=== PATIENT | male | born 1995 | race Caucasian/White ===

== ENCOUNTER 2019-01-21 08:58 | Emergency (ER) | payer SELFPAY ==
[2019-01-21] MEDS ORDERED: IBUPROFEN 400 MG TAB ONE (09:27)
--- NOTE | 2019-01-21 09:50 | EDPHYS ---
Physician Documentation [facility] Name: Richi Edward Age: 23 yrs Sex: Male : 1995 Arrival Date: 01/21/2019 Time: 09:03 Bed 13 Private MD: None, None ED Physician Dick Perez HPI: 01/21 09:11 This 23 yrs old Male presents to ER via Ambulatory with complaints of Fever, cp Cough, Sore Throat. 09:11 The patient reports fever, that was measured at 103 degrees Fahrenheit. Onset: The cp symptoms/episode began/occurred 3 day(s) ago. Associated signs and symptoms: Pertinent positives: cough, sore throat, body aches, Pertinent negatives: abdominal pain, chest pain, diarrhea, headache, sinus congestion, vomiting. Historical: - Allergies: 09:11 No Known Allergies; sg - Home Meds: 09:11 None [Active]; sg - PMHx: 09:11 None; sg - PSHx: 09:11 None; sg - Immunization history:: Adult Immunizations up to date. - Social history:: Smoking status: Patient/guardian denies using tobacco. - Ebola Screening: : Patient negative for fever greater than or equal to 101.5 degrees Fahrenheit, and additional compatible Ebola Virus Disease symptoms Patient denies exposure to infectious person Patient denies travel to an Ebola-affected area in the 21 days before illness onset No symptoms or risks identified at this time. ROS: 09:15 Constitutional: Positive for body aches, fever, Negative for poor PO intake. cp 09:15 Eyes: Negative for injury, pain, redness, and discharge. cp 09:15 ENT: Positive for sore throat, Negative for drainage from ear(s), ear pain, sinus congestion, sinus pain, difficulty swallowing, difficulty handling secretions. 09:15 Neck: Negative for pain with movement, pain at rest, stiffness. 09:15 Cardiovascular: Negative for chest pain. 09:15 Respiratory: Positive for cough, Negative for shortness of breath, wheezing. 09:15 Abdomen/GI: Negative for abdominal pain, nausea, vomiting, and diarrhea. 09:15 Skin: Negative for rash. 09:15 Neuro: Negative for altered mental status, headache. 09:15 All other systems are negative. Exam: 09:20 Constitutional: The patient appears in no acute distress, alert, awake, non-toxic, well cp developed, well nourished. 09:20 Head/Face: Normocephalic, atraumatic. cp 09:20 Eyes: Periorbital structures: appear normal, Conjunctiva: normal, no exudate, no injection, Lids and lashes: appear normal, bilaterally. 09:20 ENT: External ear(s): are unremarkable, Ear canal(s): are normal, clear, TM's: bulging, is not appreciated, bilaterally, dullness, bilaterally, erythema, is not appreciated, bilaterally, Nose: is normal, Mouth: Lips: moist, Oral mucosa: moist, Posterior pharynx: Airway: no evidence of obstruction, patent, Tonsils: with erythema, no enlargement, no exudate, Uvula: midline, erythema, that is mild, exudate, is not appreciated. 09:20 Neck: ROM/movement: is normal, is supple, without pain, no range of motions limitations, no meningismus, no nuchal rigidity, Lymph nodes: no appreciated lymphadenopathy. 09:20 Chest/axilla: Inspection: normal, Palpation: is normal, no crepitus, no tenderness. 09:20 Cardiovascular: Rate: tachycardic, Rhythm: regular. 09:20 Respiratory: the patient does not display signs of respiratory distress, Respirations: normal, no use of accessory muscles, no retractions, no splinting, no tachypnea, labored breathing, is not present, Breath sounds: are clear throughout, no decreased breath sounds, no stridor, no wheezing. 09:20 Abdomen/GI: Exam negative for discomfort, distension, guarding, Inspection: abdomen appears normal. 09:20 Skin: no rash present. Vital Signs: 09:10 BP 118 / 74; Pulse 101; Resp 17; Temp 100.2; Pulse Ox 98% on R/A; Weight 61.23 kg; sg Height 5 ft. 10 in. (177.80 cm); Pain 10/10; 09:54 BP 111 / 73; Pulse 86; Resp 14; Pulse Ox 96% ; bp 09:10 Body Mass Index 19.37 (61.23 kg, 177.80 cm) sg MDM: 09:05 Patient medically screened. cp 09:20 Differential diagnosis: viral Infection, bacterial infection, URI, bronchitis, cp pneumonia meningitis. 09:48 Data reviewed: vital signs, nurses notes, lab test result(s), and as a result, I will cp discharge patient. 09:48 Counseling: I had a detailed discussion with the patient and/or guardian regarding: the cp historical points, exam findings, and any diagnostic results supporting the discharge/admit diagnosis, lab results, to return to the emergency department if symptoms worsen or persist or if there are any questions or concerns that arise at home. Response to treatment: the patient's symptoms have mildly improved after treatment, and as a result, I will discharge patient. Special discussion: I discussed with the patient/guardian that the patient's current presentation does not indicate dosing of antibiotics. They should follow-up with their primary care provider and return if the symptoms persist or progress. 01/21 09:10 Order name: Influenza Screen (a \T\ B) 01/21 09:10 Order name: Strep; Complete Time: 09:47 01/21 09:47 Interpretation: Reviewed. 01/21 09:10 Order name: Influenza Screen (A ; Complete Time: 09:47 EDMS 01/21 09:47 Interpretation: Reviewed. 01/21 09:37 Order name: Throat Culture EDMI Administered Medications: 09:25 Drug: Ibuprofen 800 mg Route: PO; sg Disposition: 18:25 Co-signature as Attending Physician, Dick Perez MD. Disposition: 01/21/19 09:49 Discharged to Home. Impression: Acute pharyngitis. - Condition is Stable. - Discharge Instructions: Pharyngitis. - Prescriptions for Ibuprofen 800 mg Oral Tablet - take 1 tablet by ORAL route every 8 hours As needed take with food; 30 tablet. Tessalon Perles 100 mg Oral Capsule - take 1 capsule by ORAL route every 8 hours As needed; 15 capsule. - Medication Reconciliation Form, Thank You Letter, Antibiotic Education, Prescription Opioid Use, Work release form form. - Follow up: Private Physician; When: 2 - 3 days; Reason: Worsening of condition. - Problem is new. - Symptoms have improved. Signatures: Dispatcher [employer] EDMS Hans Jean-Baptiste RN RN Brian Crowder PA PA cp Starr, Gregory, MD MD gs Corrections: (The following items were deleted from the chart) 09:57 09:49 01/21/2019 09:49 Discharged to Home. Impression: Acute pharyngitis. Condition is sg Stable. Forms are Medication Reconciliation Form, Thank You Letter, Antibiotic Education, Prescription Opioid Use. Follow up: Private Physician; When: 2 - 3 days; Reason: Worsening of condition. Problem is new. Symptoms have improved. cp
--- NOTE | 2019-01-21 09:50 | ER ---
Nurse's Notes [facility] Name: Richi Edward Age: 23 yrs Sex: Male : 1995 Arrival Date: 01/21/2019 Time: 09:03 Bed 13 Private MD: None, None Diagnosis: Acute pharyngitis Presentation: 01/21 09:07 Presenting complaint: Patient states: Fever sore throat and body aches that started two sg days ago, reports TMAX of 103.2 at home, no medications taken, denies N/V/D at this time. Transition of care: patient was not received from another setting of care. Onset of symptoms was January 19, 2019. Risk Assessment: Do you want to hurt yourself or someone else? Patient reports no desire to harm self or others. Initial Sepsis Screen: Does the patient meet any 2 criteria? HR > 90 bpm. Does the patient have a suspected source of infection? No. Patient's initial sepsis screen is negative. Care prior to arrival: None. 09:07 Method Of Arrival: Ambulatory sg 09:07 Acuity: RADU 3 sg Historical: - Allergies: 09:11 No Known Allergies; sg - Home Meds: 09:11 None [Active]; sg - PMHx: 09:11 None; sg - PSHx: 09:11 None; sg - Immunization history:: Adult Immunizations up to date. - Social history:: Smoking status: Patient/guardian denies using tobacco. - Ebola Screening: : Patient negative for fever greater than or equal to 101.5 degrees Fahrenheit, and additional compatible Ebola Virus Disease symptoms Patient denies exposure to infectious person Patient denies travel to an Ebola-affected area in the 21 days before illness onset No symptoms or risks identified at this time. Screenin:15 Abuse screen: Denies threats or abuse. Denies injuries from another. Nutritional sg screening: No deficits noted. Tuberculosis screening: No symptoms or risk factors identified. Never had TB. Fall Risk None identified. Assessment: 09:15 General: Appears in no apparent distress. uncomfortable, ill, well groomed, well sg developed, well nourished, Behavior is calm, cooperative, appropriate for age. Pain: Complains of pain in body aches and sore throat Quality of pain is described as aching. Neuro: Level of Consciousness is awake, alert, obeys commands, Oriented to person, place, time, [employer] are equal bilaterally Moves all extremities. Full function Speech is normal, Facial symmetry appears normal. Cardiovascular: Patient's skin is warm and dry. Chest pain is denied. Respiratory: Airway is patent Respiratory effort is even, unlabored, Respiratory pattern is regular, symmetrical, Breath sounds are clear. Respiratory: Reports cough that is non-productive. GI: No signs and/or symptoms were reported involving the gastrointestinal system. : No signs and/or symptoms were reported regarding the genitourinary system. EENT: Oral mucosa is moist. Throat is pink has enlarged tonsils bilaterally. Derm: Skin is pale. Musculoskeletal: No signs and/or symptoms reported regarding the musculoskeletal system. Vital Signs: 09:10 BP 118 / 74; Pulse 101; Resp 17; Temp 100.2; Pulse Ox 98% on R/A; Weight 61.23 kg; sg Height 5 ft. 10 in. (177.80 cm); Pain 10/10; 09:54 BP 111 / 73; Pulse 86; Resp 14; Pulse Ox 96% ; bp 09:10 Body Mass Index 19.37 (61.23 kg, 177.80 cm) sg ED Course: 09:03 Patient arrived in ED. mr 09:03 None, None is Private Physician. mr 09:05 Dick Perez MD is Attending Physician. 09:05 Brian Landeros PA is PHCP. cp 09:05 Dick Perez MD is Attending Physician. cp 09:07 Hans Jean-Baptiste RN is Primary Nurse. sg 09:09 Triage completed. sg 09:10 Flu and/or RSV swab sent to lab. Strep swab sent to lab. sg 09:11 Arm band placed on. sg Administered Medications: 09:25 Drug: Ibuprofen 800 mg Route: PO; sg Outcome: 09:49 Discharge ordered by . cp 09:57 Patient left the ED. sg Signatures: Hans Jean-Baptiste, RN RN Enedelia Prieto mr Brian Landeros PA PA cp Dick Perez MD MD Jacoby Johnson RN RN bp
[2019-01-21 12:21] VITALS: TEMP 100.2
[2019-01-21 12:23] VITALS: BP 111/73; O2SAT 96
== END 2019-01-21 09:57 | disposition home or self-care (01) ==
LOC: ER 08:58
DX: J02.9 Acute pharyngitis, unspecified (principal)
CPT/HCPCS: 87070; 87081; 87804; 99283

== ENCOUNTER 2019-01-31 01:30 | Emergency (ER) | payer SELFPAY ==
--- OUTSIDE RECORDS SUMMARY | 2019-01-31 01:32 | XMS REPORT | Continuity of Care Document ---
:1995 Author Organization [facility] Address [address] [place] [address] Phone Unavailable Care Team Providers Name Role Phone PHYSICIAN, NO Primary Care Physician Unavailable Insurance Providers Guarantor Jonathan Wells Address [address] [place] [address] [employer] Payer Medicaid Policy Number [id number] Subscriber's Name Yash Edward Relationship Self / Same As Patient Group Number NA Group Name NA Advance Directives Directive Response Recorded Date/Time Name of Surrogate/Decision Maker NA 11/08/18 4:38pm Patient/Family Given Education Material R/T Y - 11-08-18...MP 11/08/18 4: 38pm Directives? Chief Complaint and Reason for Visit Chief Complaint HEENTL Reason for Visit [id number] Problems Active ProblemsNo active problem information available. Past Problems Medical Problem Onset Date Status Exposure to Streptococcal pharyngitis Unknown Acute Medications No medication information available. Social History Smoking Status Start Date Stop Date Current every day smoker Hospital Discharge Instructions No hospital discharge instruction information available. Plan of Care Discharge Date 11/08/18 5:28pm Instructions/Education Provided Pharyngitis Forms Provided Portal Welcome Letter Prescriptions See Medication Section Referrals NO PHYSICIAN Additional Instructions/Education TYLENOL/MOTRIN NEEDED. AMOXIL 500MG PO TWICE A DAY FOR 10 DAYS. WARM SALINE GARGLES. F/U AT [facility] IN 2 DAYS. RETURN IF GET WORSE. Functional Status No functional status information available. Allergies, Adverse Reactions, Alerts Allergen Type Severity Reaction Status Last Updated ALOE VERA Allergy Intermediate Active 11/08/18 Immunizations No immunization information available. Vital Signs Acute Vital Signs Vital Response Date/Time Blood Pressure 103/66 mm Hg 11/08/2018 5:30pm Pulse Pulse Rate (adult) 74 beats per minute (60 - 100) 11/08/2018 5:30pm Respiratory Rate 15 breaths per minute (10 - 24) 11/08/2018 5:30pm Temperature Source Oral 11/08/2018 5:30pm Height 5 ft 9 in 11/08/2018 4:36pm Weight 143 lb 11/08/2018 4:36pm Body Mass Index 21.1 kg/m^2 11/08/2018 4:36pm Results No relevant diagnostic test, laboratory data and/or discharge summary information available. Procedures No procedure information available. Encounters Encounter Location Arrival/Admit Date Discharge/Depart Date Attending Provider Departed [place] 11/08/18 4:32pm 11/08/18 5:28pm HAL[facility] BERRY Emergency [facility] Recent Diagnosis
[2019-01-31] MEDS ORDERED: NA CHLORIDE 0.9% 1,000 ML ONE (03:05)
[2019-01-31] MEDS ORDERED: MAGNE/ALUM HYDROXD 30 ML UCUP ONE (03:05)
[2019-01-31] MEDS ORDERED: LIDOCAINE VISCOUS 2% SOLN 15 ML UDC ONE (03:05)
[2019-01-31 03:13] LABS: Absolute Lymphocytes (CBC) 1.8 K/uL (0.7-4.9); Absolute Monocytes 0.6 K/uL (0.1-1.3); Absolute Neutrophil 4.6 K/uL (1.8-8.0); Basophils % 0.4 % (0-1.3); Eosinophils % 1.7 % (0-4.4); Hematocrit 39.6 % (39.6-49.0); Lymphocytes % 24.7 % (15.3-44.8); MPV 8.7 fL (7.6-11.3); Monocytes % 8.7 % (3.3-12.3); RBC Red Blood Cell Count 4.47 M/uL (4.33-5.43)
[2019-01-31 03:29] LABS: ALT/SGPT 58 U/L (12-78); AST/SGOT 28 U/L (15-37); Albumin 3.9 g/dL (3.4-5.0); Alkaline Phosphatase 64 U/L (45-117); BUN Blood Urea Nitrogen 20 mg/dL (7-18); Bicarbonate 28 mmol/L (21-32); Bilirubin Direct 0.1 mg/dL (0-0.2); Bilirubin Total 0.3 mg/dL (0.2-1.0); Glucose Level 102 mg/dL (74-106); Lipase 110 U/L (73-393); Potassium 3.8 mmol/L (3.5-5.1); Protein, Total 7.7 g/dL (6.4-8.2); Sodium Level 142 mmol/L (136-145)
--- NOTE | 2019-01-31 06:23 | ER ---
Nurse's Notes [facility] Name: Richi Edward Age: 23 yrs Sex: Male : 1995 Arrival Date: 01/31/2019 Time: 01:33 Bed 5 Private MD: Diagnosis: Epigastric pain. Peptic ulcer disease Presentation: 01/31 01:35 Presenting complaint: Patient states: that 1 week ago he started to have mid abd pain. fc Then 3 days ago started to have diarrhea. Then last night at 2300 started to vomit blood with clots. Pt does state that family member had flu last week. Transition of care: patient was not received from another setting of care. Onset of symptoms was January 24, 2019. Risk Assessment: Do you want to hurt yourself or someone else? Patient reports no desire to harm self or others. Initial Sepsis Screen: Does the patient meet any 2 criteria? No. Patient's initial sepsis screen is negative. Does the patient have a suspected source of infection? No. Patient's initial sepsis screen is negative. Care prior to arrival: None. 01:35 Method Of Arrival: Ambulatory 01:35 Acuity: RADU 3 fc Historical: - Allergies: 01:54 No Known Allergies; fc - Home Meds: 01:54 None [Active]; fc - PMHx: 01:54 None; fc - PSHx: 01:54 None; fc - Immunization history:: Last tetanus immunization: unknown. - Social history:: Smoking status: Patient uses tobacco products, quit 2 weeks ago, Patient uses alcohol, occasionally. - Ebola Screening: : Patient negative for fever greater than or equal to 101.5 degrees Fahrenheit, and additional compatible Ebola Virus Disease symptoms Patient denies exposure to infectious person Patient denies travel to an Ebola-affected area in the 21 days before illness onset. Screenin:35 Abuse screen: Denies threats or abuse. Nutritional screening: No deficits noted. fc Tuberculosis screening: No symptoms or risk factors identified. Fall Risk None identified. Assessment: 02:00 General: Appears in no apparent distress. uncomfortable, Behavior is calm, cooperative, rr5 appropriate for age. 02:00 Pain: Complains of pain in abdomen Pain does not radiate. Pain currently is 10 out of rr5 10 on a pain scale. Quality of pain is described as aching, Pain began gradually, Is intermittent. Neuro: Level of Consciousness is awake, alert, obeys commands, Oriented to person, place, time, situation, Appropriate for age. Cardiovascular: Capillary refill < 3 seconds Patient's skin is warm and dry. Respiratory: Airway is patent Respiratory effort is even, unlabored, Respiratory pattern is regular, symmetrical. GI: Abdomen is flat, Reports upper abdominal pain, diarrhea, vomiting, vomit blood clot. : No signs and/or symptoms were reported regarding the genitourinary system. EENT: No signs and/or symptoms were reported regarding the EENT system. Derm: Skin is intact, Skin temperature is warm. Musculoskeletal: Circulation, motion, and sensation intact. Capillary refill < 3 seconds, Range of motion: intact in all extremities. 02:40 Reassessment: Patient appears in no apparent distress at this time. patient refused for rr5 NGT insertion. ED provider aware. 03:30 Reassessment: Patient appears in no apparent distress at this time. Patient is alert, rr5 oriented x 3, equal unlabored respirations, skin warm/dry/pink. awaiting for review. 04:19 Reassessment: Patient and/or family updated on plan of care and expected duration. Pain ea level reassessed. Patient is alert, oriented x 3, equal unlabored respirations, skin warm/dry/pink. 05:30 Reassessment: Patient appears in no apparent distress at this time. Patient is alert, rr5 oriented x 3, equal unlabored respirations, skin warm/dry/pink. asleep on bed comfortably. 06:30 Reassessment: Patient and/or family updated on plan of care and expected duration. Pain ea level reassessed. Patient is alert, oriented x 3, equal unlabored respirations, skin warm/dry/pink. Discharge instruction given to patient, verbalized the understanding instruction. Vital Signs: 01:35 BP 121 / 70; Pulse 78; Resp 18; Temp 97.6(O); Pulse Ox 98% on R/A; Weight 68.04 kg (R); fc Height 5 ft. 11 in. (180.34 cm) (R); Pain 10/10; 02:30 BP 118 / 75; Pulse 75; Resp 16; Pulse Ox 99% on R/A; rr5 03:30 BP 114 / 71; Pulse 80; Resp 18; Pulse Ox 99% on R/A; ea 04:19 BP 114 / 71; Pulse 73; Resp 18; Pulse Ox 97% on R/A; ea 05:58 BP 113 / 65; Pulse 60; Resp 18; Pulse Ox 97% on R/A; ea 06:15 BP 114 / 69; Pulse 60; Resp 18; Pulse Ox 97% on R/A; ea 01:35 Body Mass Index 20.92 (68.04 kg, 180.34 cm) ED Course: 01:33 Patient arrived in ED. am2 01:35 Arm band placed on Patient placed in an exam room, on a stretcher. fc 01:35 Patient has correct armband on for positive identification. Placed in gown. Bed in low fc position. Call light in reach. Pulse ox on. NIBP on. 01:35 No provider procedures requiring assistance completed. fc 01:52 Triage completed. fc 02:07 Cristopher Vargas MD is Attending Physician. pkl 02:43 Jeff Conroy RN is Primary Nurse. rr5 03:06 Inserted saline lock: 20 gauge in right antecubital area, using aseptic technique. ea Blood collected. 06:22 William Cornejo MD is Referral Physician. pkl 06:30 IV discontinued, intact, bleeding controlled, No redness/swelling at site. Pressure ea dressing applied. Administered Medications: 03:09 Drug: GI Cocktail without - (Maalox Suspension 30 ml, Lidocaine Liquid 2 % 15 ea ml) Route: PO; 04:10 Follow up: Response: No adverse reaction rr5 03:11 Drug: NS 0.9% 1000 ml Route: IV; Rate: 125 ml/hr; Site: right antecubital; ea 06:31 Follow up: Response: No adverse reaction; IV Status: Order to discontinue infusion; IV rr5 Intake: 300ml Point of Care Testing: Guaiac: 02:55 Stool Guaiac: Negative; Stool Hemoccult Control: Pass; rr5 Intake: 06:31 IV: 300ml; Total: 300ml. rr5 Outcome: 06:23 Discharge ordered by . pkl 06:31 Discharged to home ambulatory. ea 06:31 Condition: improved 06:31 Discharge instructions given to patient, Instructed on discharge instructions, follow up and referral plans. medication usage, Demonstrated understanding of instructions, follow-up care, medications, Prescriptions given X 1. 06:34 Patient left the ED. ea Signatures: Cristopher Vargas MD MD pkl Chretien, Felicia, RN RN Cheyanne Ma Elena RN RN Jeff Guillen RN RN rr5
--- NOTE | 2019-01-31 06:24 | EDPHYS ---
Physician Documentation [facility] Name: Richi Edward Age: 23 yrs Sex: Male : 1995 Arrival Date: 01/31/2019 Time: 01:33 Bed 5 Private MD: ED Physician Cristopher Vargas HPI: 01/31 02:31 This 23 yrs old Male presents to ER via Ambulatory with complaints of pkl vomiting blood. 02:45 The patient presents with abdominal pain in the epigastric area. Onset: The pkl symptoms/episode began/occurred 1 week(s) ago. Associated signs and symptoms: Pertinent positives: vomiting blood. Historical: - Allergies: :54 No Known Allergies; fc - Home Meds: :54 None [Active]; fc - PMHx: :54 None; fc - PSHx: :54 None; fc - Immunization history:: Last tetanus immunization: unknown. - Social history:: Smoking status: Patient uses tobacco products, quit 2 weeks ago, Patient uses alcohol, occasionally. - Ebola Screening: : Patient negative for fever greater than or equal to 101.5 degrees Fahrenheit, and additional compatible Ebola Virus Disease symptoms Patient denies exposure to infectious person Patient denies travel to an Ebola-affected area in the 21 days before illness onset. ROS: 02:45 Eyes: Negative for injury, pain, redness, and discharge, ENT: Negative for injury, pkl pain, and discharge, Neck: Negative for injury, pain, and swelling, Cardiovascular: Negative for chest pain, palpitations, and edema, Respiratory: Negative for shortness of breath, cough, wheezing, and pleuritic chest pain. 02:45 Abdomen/GI: Positive for abdominal pain, of the epigastric area. 02:45 Back: Negative for acute changes. 02:45 : Negative for urinary symptoms. 02:45 MS/extremity: Negative for acute changes. 02:45 Skin: Negative for rash. 02:45 Neuro: Negative for altered mental status. Exam: 02:45 Head/Face: Normocephalic, atraumatic. Eyes: Pupils equal round and reactive to light, pkl extra-ocular motions intact. Lids and lashes normal. Conjunctiva and sclera are non-icteric and not injected. Cornea within normal limits. Periorbital areas with no swelling, redness, or edema. ENT: Nares patent. No nasal discharge, no septal abnormalities noted. Tympanic membranes are normal and external auditory canals are clear. Oropharynx with no redness, swelling, or masses, exudates, or evidence of obstruction, uvula midline. Mucous membranes moist. Neck: Trachea midline, no thyromegaly or masses palpated, and no cervical lymphadenopathy. Supple, full range of motion without nuchal rigidity, or vertebral point tenderness. No Meningismus. Chest/axilla: Normal chest wall appearance and motion. Nontender with no deformity. No lesions are appreciated. Cardiovascular: Regular rate and rhythm with a normal S1 and S2. No gallops, murmurs, or rubs. Normal PMI, no JVD. No pulse deficits. Respiratory: Lungs have equal breath sounds bilaterally, clear to auscultation and percussion. No rales, rhonchi or wheezes noted. No increased work of breathing, no retractions or nasal flaring. 02:45 Abdomen/GI: Bowel sounds: normal, Palpation: soft, mild abdominal tenderness, in the epigastric area, Rectal exam: Stool: guaiac negative, the exam is chaperoned by the nurse. 02:45 Back: Exam negative for acute changes. 02:45 : Exam negative for acute changes. 02:45 Musculoskeletal/extremity: Exam is negative for acute changes. 02:45 Skin: Exam negative for rash. 02:45 Neuro: Orientation: is normal, Mentation: is normal, Cranial nerves: grossly normal, Motor: is normal. Vital Signs: 01:35 BP 121 / 70; Pulse 78; Resp 18; Temp 97.6(O); Pulse Ox 98% on R/A; Weight 68.04 kg (R); fc Height 5 ft. 11 in. (180.34 cm) (R); Pain 10/10; 02:30 BP 118 / 75; Pulse 75; Resp 16; Pulse Ox 99% on R/A; rr5 03:30 BP 114 / 71; Pulse 80; Resp 18; Pulse Ox 99% on R/A; ea 04:19 BP 114 / 71; Pulse 73; Resp 18; Pulse Ox 97% on R/A; ea 05:58 BP 113 / 65; Pulse 60; Resp 18; Pulse Ox 97% on R/A; ea 06:15 BP 114 / 69; Pulse 60; Resp 18; Pulse Ox 97% on R/A; ea 01:35 Body Mass Index 20.92 (68.04 kg, 180.34 cm) fc MDM: 02:07 Patient medically screened. pkl 06:21 Data reviewed: vital signs, nurses notes, lab test result(s). pkl 01/31 02:44 Order name: Basic Metabolic Panel pkl 01/31 02:44 Order name: CBC with Diff pkl 01/31 02:44 Order name: Creatinine for Radiology pkl 01/31 02:44 Order name: Hepatic Function; Complete Time: 06:20 pkl 01/31 02:44 Order name: Lipase; Complete Time: 06:20 pkl 01/31 02:45 Order name: Basic Metabolic Panel; Complete Time: 06:20 EDMS 01/31 02:44 Order name: IV Saline Lock; Complete Time: 03:11 pkl 01/31 02:44 Order name: Labs collected and sent; Complete Time: 03:11 pkl 01/31 02:45 Order name: CBC with Automated Diff; Complete Time: 06:20 EDMS 01/31 02:45 Order name: Creatinine (Radiology Only); Complete Time: 06:20 EDMS Administered Medications: 03:09 Drug: GI Cocktail without - (Maalox Suspension 30 ml, Lidocaine Liquid 2 % 15 ea ml) Route: PO; 04:10 Follow up: Response: No adverse reaction rr5 03:11 Drug: NS 0.9% 1000 ml Route: IV; Rate: 125 ml/hr; Site: right antecubital; ea 06:31 Follow up: Response: No adverse reaction; IV Status: Order to discontinue infusion; IV rr5 Intake: 300ml Point of Care Testing: Guaiac: 02:55 Stool Guaiac: Negative; Stool Hemoccult Control: Pass; rr5 Disposition: 01/31/19 06:23 Discharged to Home. Impression: Epigastric pain. Peptic ulcer disease. - Condition is Fair. - Prescriptions for Protonix 40 mg Oral Tablet, Delayed Release (E.C.) - take 1 tablet by ORAL route once daily; 15 tablet. - Medication Reconciliation Form, Thank You Letter, Antibiotic Education, Prescription Opioid Use, Work release form form. - Follow up: William Cornejo MD; When: 2 - 3 days; Reason: Re-evaluation by your physician. - Problem is new. - Symptoms have improved. Signatures: Dispatcher [employer] EDCristopher Stoner MD MD pkl Celeste Pinto RN RN Kimmy Rivera RN RN ea Roque, Raymond RN rr5 Corrections: (The following items were deleted from the chart) 03:44 02:45 NG Tube ordered. pkl rr5 06:34 06:23 01/31/2019 06:23 Discharged to Home. Impression: Epigastric pain. Peptic ulcer ea disease. Condition is Fair. Forms are Medication Reconciliation Form, Thank You Letter, Antibiotic Education, Prescription Opioid Use. Follow up: William Cornejo; When: 2 - 3 days; Reason: Re-evaluation by your physician. Problem is new. Symptoms have improved. pkl
[2019-01-31 06:45] VITALS: TEMP 97.6
[2019-01-31 06:49] VITALS: O2SAT 97
[2019-01-31 06:52] VITALS: BP 114/69
== END 2019-01-31 06:34 | disposition home or self-care (01) ==
LOC: ER 01:30
DX: K27.9 Peptic ulcer, site unspecified, unspecified as acute or chronic, without hemorrhage or perforation (principal); Z87.891 Personal history of nicotine dependence
CPT/HCPCS: 36415; 80048; 80076; 83690; 85025; 96360; 96361; 99284; J7030

== ENCOUNTER 2019-07-16 10:34 | Emergency (ER) | payer SELFPAY ==
[2019-07-16] MEDS ORDERED: MUPIROCIN 2% OINT 22GM TUBE TOP ONE (11:16)
--- NOTE | 2019-07-16 11:59 | RAD REPORT ---
EXAM DESCRIPTION: RAD - Hand Right 3 View - 07/16/2019 11:48 am CLINICAL HISTORY: Hand pain, trauma COMPARISON: None. FINDINGS: Oblique fracture is present through the distal shaft fifth metacarpal. Mild ventral angula tion deformity without distraction. There is no dislocation or periosteal reaction noted. No other f racture or acute bone finding identifiable. Soft tissue swelling is present near the fifth metacarpal . No foreign body. IMPRESSION: Distal fifth metacarpal shaft fracture with minimal ventral angulation.
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
[2019-07-16 18:04] VITALS: BP 139/77; TEMP 97.8; O2SAT 100
== END 2019-07-16 12:52 | disposition home or self-care (01) ==
LOC: ER 10:34
PROC: 2W3CX1Z Immobilization of Right Lower Arm using Splint (ICD-10-PCS; principal; 2019-07-16)
DX: S62.366A Nondisplaced fracture of neck of fifth metacarpal bone, right hand, initial encounter for closed fracture (principal); V89.2XXA Person injured in unspecified motor-vehicle accident, traffic, initial encounter; Z91.048 Other nonmedicinal substance allergy status; F17.210 Nicotine dependence, cigarettes, uncomplicated
CPT/HCPCS: 99284

== ENCOUNTER 2019-07-17 13:39 | Emergency (ER) | payer SELFPAY ==
--- NOTE | 2019-07-17 14:09 | ER ---
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 Transition of care: patient was not received from another setting of care. Onset of symptoms was July 17, 2019. Risk Assessment: Do you want to hurt yourself or someone else? Patient reports no desire to harm self or others. Initial Sepsis Screen: Does the patient meet any 2 criteria? No. Patient's initial sepsis screen is negative. Does the patient have a suspected source of infection? No. Patient's initial sepsis screen is negative. Care prior to arrival: None. 13:45 Method Of Arrival: Ambulatory la1 13:45 Acuity: RADU 5 la1 Historical: - Allergies: 13:47 aloe vera; la1 - PMHx: 13:47 Seizures; la1 - Immunization history:: Adult Immunizations up to date. - Social history:: Smoking status: Patient uses tobacco products, smokes one-half pack cigarettes per day. - Ebola Screening: : No symptoms or risks identified at this time. Screenin:21 Abuse screen: Denies threats or abuse. Nutritional screening: No deficits noted. la1 Tuberculosis screening: No symptoms or risk factors identified. Fall Risk None identified. Assessment: 14:21 General: Appears in no apparent distress. Behavior is calm, cooperative. Pain: la1 Complains of pain in right hand. Neuro: Level of Consciousness is awake, alert, obeys commands, Oriented to person, place, time, situation. Cardiovascular: Patient's skin is warm and dry. Musculoskeletal: Capillary refill < 3 seconds, is brisk, in bilateral fingers. 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 Pt advise he should not be lifting heavy objects with his arm and that we cannot provide that service as it could potentially cause him harm. Pt very upset states "I dont even know why the gilda yahayley are here if you cant help me, I could lose my job" pt educated that although this is an unfortunate situation it is not advisable that he attempt to lift heavy objects with his hand or forearm due to his fracture. Pt left disgruntled. Vital Signs: 13:47 BP 140 / 90; Pulse 68; Resp 16; Temp 98.6; Pulse Ox 100% on R/A; Weight 68.04 kg; la1 Height 5 ft. 10 in. (177.80 cm); 13:47 Body Mass Index 21.52 (68.04 kg, 177.80 cm) la1 ED Course: 13:40 Patient arrived in ED. rg4 13:47 Triage completed. la1 13:47 Arm band placed on left wrist. la1 13:55 Theresa Aleman RN is Primary Nurse. iw 14:04 Ernst Christianson NP is PHCP. pm1 14:04 Brian Nix MD is Attending Physician. pm1 14:08 Garry Houser MD is Referral Physician. pm1 14:08 Hans Wilcox MD is Referral Physician. pm1 14:21 Patient has correct armband on for positive identification. la1 14:21 No provider procedures requiring assistance completed. Patient did not have IV access la1 during this emergency room visit. Administered Medications: No medications were administered Outcome: 14:09 Discharge ordered by . pm1 14:21 Discharged to home ambulatory. la1 14:21 Condition: stable 14:21 Discharge instructions given to patient, Instructed on discharge instructions, follow up and referral plans. medication usage, Demonstrated understanding of instructions, follow-up care, medications. 14:36 Patient left the ED. la1 Signatures: Tehresa Aleman RN RN Colt Paniagua RN RN la Ernst Christianson NP START UP SPECIALIST pm1 Stacie Marinelli rg4
--- NOTE | 2019-07-17 14:10 | EDPHYS ---
Physician Documentation [facility] Name: Richi Edward Age: 24 yrs Sex: Male : 1995 Arrival Date: 07/17/2019 Time: 13:40 Bed 10 Private MD: ED Physician Brian Nix HPI: 07/17 14:06 This 24 yrs old Male presents to ER via Ambulatory with complaints of Right pm1 Arm Pain. 14:06 The patient or guardian complains of pain. The complaints affect the right forearm. pm1 Context: The problem was sustained initially with punching a tree on July 08 after argument with his . Came to the ER yesterday and was diagnosed with right 5th metacarpal fracture. Patient was splinted in ulnar gutter splint and instructed to follow up with hand/ortho. Patient is presenting to ER today with complaints of right forearm pain with picking up approximately 200 lb logs. He is resting the log on the radial part of his right forearm. He is presenting today with a request to place an additional piece of Orthoglass on the area he is resting the log so that he can work. Historical: - Allergies: 13:47 aloe vera; la1 - PMHx: 13:47 Seizures; la1 - Immunization history:: Adult Immunizations up to date. - Social history:: Smoking status: Patient uses tobacco products, smokes one-half pack cigarettes per day. - Ebola Screening: : No symptoms or risks identified at this time. ROS: 14:06 Constitutional: Negative for fever, chills, and weight loss, Cardiovascular: Negative pm1 for chest pain, palpitations, and edema, Respiratory: Negative for shortness of breath, cough, wheezing, and pleuritic chest pain, Back: Negative for injury and pain. 14:06 Skin: Negative for injury, rash, and discoloration, Neuro: Negative for headache, weakness, numbness, tingling, and seizure. 14:06 MS/extremity: Positive for pain, of the right forearm, with working, carrying logs with splint in place. 14:06 All other systems are negative. pm1 Exam: 14:06 Constitutional: This is a well developed, well nourished patient who is awake, alert, pm1 and in no acute distress. Head/Face: Normocephalic, atraumatic. Chest/axilla: Normal chest wall appearance and motion. Nontender with no deformity. No lesions are appreciated. Cardiovascular: Regular rate and rhythm with a normal S1 and S2. No gallops, murmurs, or rubs. Normal PMI, no JVD. No pulse deficits. Respiratory: Lungs have equal breath sounds bilaterally, clear to auscultation and percussion. No rales, rhonchi or wheezes noted. No increased work of breathing, no retractions or nasal flaring. Back: No spinal tenderness. No costovertebral tenderness. Full range of motion. Skin: Warm, dry with normal turgor. Normal color with no rashes, no lesions, and no evidence of cellulitis. 14:06 Musculoskeletal/extremity: Compartment Syndrome exam of affected extremity: the right hand is normal. no pain, no numbness, no tingling, no sensation deficit, no palor, no weak pulses. 14:06 Neuro: Orientation: is normal, Motor: is normal, moves all fours, Gait: is steady, at a normal pace, without difficulty. Vital Signs: 13:47 BP 140 / 90; Pulse 68; Resp 16; Temp 98.6; Pulse Ox 100% on R/A; Weight 68.04 kg; la1 Height 5 ft. 10 in. (177.80 cm); 13:47 Body Mass Index 21.52 (68.04 kg, 177.80 cm) la1 MDM: 14:05 Patient medically screened. pm1 14:06 Data reviewed: vital signs. Data interpreted: Pulse oximetry: on room air is 100 %. pm1 Interpretation: normal. Counseling: I had a detailed discussion with the patient and/or guardian regarding: the historical points, exam findings, and any diagnostic results supporting the discharge/admit diagnosis, the need for outpatient follow up, for definitive care, a hand specialist, a orthopedic surgeon. 14:10 ED course: Patient is requesting for additional Orthoglass to be added to his current pm1 ulnar gutter splint on his right arm. He wants Orthoglass to be placed on the radial area of his right forearm to act as a platform to carry logs at work. Informed the patient that he should not be carrying logs with his splint already and he needs to follow up with orthopedics or hand surgery for definite care of his right 5th metacarpal fracture. Administered Medications: No medications were administered Disposition: 07/18 13:28 Co-signature as Attending Physician, Brian Nix MD I agree with the assessment and agustín plan of care. Disposition: 07/17/19 14:09 Discharged to Home. Impression: Nondisplaced fracture of neck of fifth metacarpal bone, right hand. - Condition is Stable. - Discharge Instructions: Cast or Splint Care, Adult, Metacarpal Fracture, How to Use a Sling. - Medication Reconciliation Form, Thank You Letter, Antibiotic Education, Prescription Opioid Use form. - Follow up: Emergency Department; When: As needed; Reason: Worsening of condition. Follow up: Garry Houser MD; When: 2 - 3 days; Reason: Recheck today's complaints, Continuance of care, Re-evaluation by your physician. Follow up: Hans Wilcox MD; When: 2 - 3 days; Reason: Recheck today's complaints, Continuance of care, Re-evaluation by your physician. - Problem is new. - Symptoms have improved. Signatures: Brian Nix MD MD cha Attema, Lee RN RN la1 Ernst Christianson NP [employer]CE INSTALLER pm1 Corrections: (The following items were deleted from the chart) 07/17 14:11 14:09 07/17/2019 14:09 Discharged to Home. Impression: Displaced fracture of shaft of pm1 fifth metacarpal bone, right hand. Condition is Stable. Forms are Medication Reconciliation Form, Thank You Letter, Antibiotic Education, Prescription Opioid Use. Follow up: Emergency Department; When: As needed; Reason: Worsening of condition. Follow up: Garry Houser; When: 2 - 3 days; Reason: Recheck today's complaints, Continuance of care, Re-evaluation by your physician. Follow up: Hans Wilcox; When: 2 - 3 days; Reason: Recheck today's complaints, Continuance of care, Re-evaluation by your physician. Problem is new. Symptoms have improved. pm1 14:36 14:11 07/17/2019 14:09 Discharged to Home. Impression: Nondisplaced fracture of neck of la1 fifth metacarpal bone, right hand. Condition is Stable. Forms are Medication Reconciliation Form, Thank You Letter, Antibiotic Education, Prescription Opioid Use. Follow up: Emergency Department; When: As needed; Reason: Worsening of condition. Follow up: Garry Houser; When: 2 - 3 days; Reason: Recheck today's complaints, Continuance of care, Re-evaluation by your physician. Follow up: Hans Wilcox; When: 2 - 3 days; Reason: Recheck today's complaints, Continuance of care, Re-evaluation by your physician. Problem is new. Symptoms have improved. pm1
[2019-07-17 15:08] VITALS: BP 140/90; TEMP 98.6; O2SAT 100
== END 2019-07-17 14:36 | disposition home or self-care (01) ==
LOC: ER 13:39
DX: S62.366G Nondisplaced fracture of neck of fifth metacarpal bone, right hand, subsequent encounter for fracture with delayed healing (principal); X58.XXXD Exposure to other specified factors, subsequent encounter; F17.210 Nicotine dependence, cigarettes, uncomplicated; Z91.048 Other nonmedicinal substance allergy status
CPT/HCPCS: 99281

== ENCOUNTER 2020-09-26 13:45 | Emergency (ER) | payer OTHER, SELFPAY ==
--- NOTE | 2020-09-26 15:57 | RAD REPORT ---
EXAM DESCRIPTION: CT - Head Brain Wo Cont - 09/26/2020 3:39 pm CLINICAL HISTORY: HEADACHE COMPARISON: No comparisons TECHNIQUE: Axial 5 mm thick images of the head were obtained without IV contrast. All CT scans are performed using dose optimization technique as appropriate and may include automated exposure control or mA/KV adjustment according to patient size. FINDINGS: No intracranial hemorrhage, mass, edema or shift of mid-line structures. No acute infarcti on changes seen. No abnormal extra-axial fluid collections. Ventricles are normal. Mastoid air cells and visualized portions of the paranasal sinuses are clear. No acute bony findings. IMPRESSION: Negative non-contrast CT head examination.
[2020-09-26 15:58] LABS: Absolute Lymphocytes (CBC) 2.1 K/uL (0.7-4.9); Basophils % 0.7 % (0-1.3); Hematocrit 40.1 % (39.6-49.0); Lymphocytes % 27.3 % (15.3-44.8); RBC Red Blood Cell Count 4.45 M/uL (4.33-5.43)
[2020-09-26 16:14] LABS: ALT/SGPT 22 U/L (12-78); AST/SGOT 15 U/L (15-37); Albumin 4.1 g/dL (3.4-5.0); Alkaline Phosphatase 69 U/L (45-117); BUN Blood Urea Nitrogen 8 mg/dL (7-18); Bicarbonate 30 mmol/L (21-32); Bilirubin Direct < 0.1 mg/dL (0-0.2); Bilirubin Total 0.2 mg/dL (0.2-1.0); Glucose Level 79 mg/dL (74-106); Potassium 3.6 mmol/L (3.5-5.1); Protein, Total 7.4 g/dL (6.4-8.2); Sodium Level 141 mmol/L (136-145)
--- NOTE | 2020-09-26 17:49 | ER ---
Nurse's Notes [facility] Name: Richi Edward Age: 25 yrs Sex: Male : 1995 Arrival Date: 09/26/2020 Time: 13:48 Bed 25 Private MD: Diagnosis: Suicidal ideations;Suicide attempt Presentation: 09/26 14:27 Chief complaint: Patient states: I am having mental issues, with voices switching and ca1 suicidal thoughts since mid August but not currently. I change into other personalities. Kind of a mood swing but they have their own likes and dislikes. I need help cause I have been getting worse and Tereso one of my personalities gets angry easily and Tereso's dangerous. I've been out pt for weeks, been going to [facility] but I don't think outpatient is working. The medicine that they have me on is not as good as it should. Reports headaches. Coronavirus screen: Client denies travel out of the [place] in the last 14 days. At this time, the client does not indicate any symptoms associated with coronavirus-19. Ebola Screen: Patient negative for fever greater than or equal to 101.5 degrees Fahrenheit, and additional compatible Ebola Virus Disease symptoms Patient denies exposure to infectious person. Patient denies travel to an Ebola-affected area in the 21 days before illness onset. No symptoms or risks identified at this time. Initial Sepsis Screen: Does the patient meet any 2 criteria? No. Patient's initial sepsis screen is negative. Does the patient have a suspected source of infection? No. Patient's initial sepsis screen is negative. Risk Assessment: Do you want to hurt yourself or someone else? Patient reports no desire to harm self or others. Other: pt states, "at this current moment? NO". Onset of symptoms was September 26, 2020. 14:27 Method Of Arrival: Ambulatory ca1 14:27 Acuity: RADU 3 ca1 17:07 Acuity: RADU 2 ca1 Historical: - Allergies: 14:35 aloe vera; ca1 - Home Meds: 14:35 olanzapine oral oral [Active]; Keppra Oral [Active]; ca1 - PMHx: 14:35 Seizures; Schizophrenia; ca1 - PSHx: 14:35 None; ca1 - Immunization history:: Flu vaccine is not up to date. - Social history:: Smoking status: Patient reports the use of cigarette tobacco products, smokes one-half pack cigarettes per day, Patient/guardian denies using alcohol, street drugs. Screenin:38 Abuse screen: Denies threats or abuse. Denies injuries from another. Nutritional zb screening: No deficits noted. Tuberculosis screening: No symptoms or risk factors identified. Fall Risk No fall in past 12 months (0 pts). Secondary diagnosis (15 points) seizures, IV access (20 points). Ambulatory Aid- None/Bed Rest/Nurse Assist (0 pts). Gait- Normal/Bed Rest/Wheelchair (0 pts) Mental Status- Oriented to own ability (0 pts). Total Kumar Fall Scale indicates Low Risk Score (25-44 pts). Fall prevention measures have been instituted. Side Rails Up X 2 1:1 attendant Assigned to Pt. Frequent Obs/Assesments occuring As available Patient and Family Educated on Fall Prevention Program and strategies. Assessment: 15:30 General: Appears in no apparent distress. uncomfortable, Behavior is calm, cooperative, zb appropriate for age, flat. Pain: Denies pain. Neuro: Level of Consciousness is awake, alert, obeys commands, Oriented to person, place, time, situation. Cardiovascular: Capillary refill < 3 seconds in bilateral fingers Patient's skin is warm and dry. Respiratory: Airway is patent Respiratory effort is even, unlabored, Respiratory pattern is regular, symmetrical. GI: Abdomen is flat, non-distended. : No signs and/or symptoms were reported regarding the genitourinary system. EENT: No signs and/or symptoms were reported regarding the EENT system. Derm: Skin is intact, Skin is dry, Skin is pink, warm \\T\\ dry. normal, Skin temperature is warm. Musculoskeletal: Circulation, motion, and sensation intact. Capillary refill < 3 seconds, in bilateral fingers. Range of motion: intact in all extremities. 16:30 Reassessment: Patient appears in no apparent distress at this time. Patient and/or zb family updated on plan of care and expected duration. Pain level reassessed. Patient is alert, oriented x 3, equal unlabored respirations, skin warm/dry/pink. 17:05 Reassessment: attempted to covid swab patient refused stated he needed to talk to his zb . 17:50 Reassessment: patient given psych medications. zb 18:00 Reassessment: patient getting agitated. notified ECP and charge nurse. ECP came and zb talked to patient. patient states that he feels like taking away his stuff is dehumanzing. currently denies SI/HI. but states he is hearing and feeling voices talking to him. Charge nurse at bedside, discussing plan of care with patient. 19:00 Reassessment: Patient appears in no apparent distress at this time. Patient and/or zb family updated on plan of care and expected duration. Pain level reassessed. Patient is alert, oriented x 3, equal unlabored respirations, skin warm/dry/pink. patient at bedside. patient has calmed down. awaiting for [facility] to call. 20:00 Reassessment: Patient appears in no apparent distress at this time. Patient and/or zb family updated on plan of care and expected duration. Pain level reassessed. Patient is alert, oriented x 3, equal unlabored respirations, skin warm/dry/pink. pt currently speaking to [employer] at the moment. pt is calm, no current aggression. 21:00 Reassessment: Patient appears in no apparent distress at this time. Patient and/or zb family updated on plan of care and expected duration. Pain level reassessed. Patient is alert, oriented x 3, equal unlabored respirations, skin warm/dry/pink. called notified of POC. 22:00 Reassessment: Patient appears in no apparent distress at this time. Patient and/or zb family updated on plan of care and expected duration. Pain level reassessed. Patient is alert, oriented x 3, equal unlabored respirations, skin warm/dry/pink. pt resting right now. light dimmed, patient visible. no acute changes at this time. 23:00 Reassessment: Patient appears in no apparent distress at this time. Patient and/or zb family updated on plan of care and expected duration. Pain level reassessed. Patient is alert, oriented x 3, equal unlabored respirations, skin warm/dry/pink. pt resting at this time. no acute changes. 09/27 00:00 Reassessment: Patient appears in no apparent distress at this time. Patient is alert, sg oriented x 3, equal unlabored respirations, skin warm/dry/pink. awaiting acceptance for psych transfer at this time. 00:00 Reassessment: pt personal pill bottles removed from patient possession at this time, pt sg continues to refuse to remove his clothing and get into the gown, refuses to give up his possessions for security per protocol but has agreed to leave them near the door away from pt at this time. 00:20 General: Appears in no apparent distress. well groomed, well developed, well nourished, sg Behavior is calm, cooperative, appropriate for age. Neuro: Level of Consciousness is awake, alert, obeys commands, Oriented to person, place, time, situation, Speech is normal, Facial symmetry appears normal. Cardiovascular: Patient's skin is warm and dry. Respiratory: Airway is patent Respiratory effort is even, unlabored, Respiratory pattern is regular, symmetrical. GI: No signs and/or symptoms were reported involving the gastrointestinal system. : No signs and/or symptoms were reported regarding the genitourinary system. EENT: No signs and/or symptoms were reported regarding the EENT system. Derm: Skin is pink, warm \\T\\ dry. Musculoskeletal: Circulation, motion, and sensation intact. Range of motion: intact in all extremities. 01:00 Reassessment: Patient appears in no apparent distress at this time. pt resting at this sg time, eyes closed, resp even and unlabored, no s/s distress noted at this time. 02:00 Reassessment: Patient appears in no apparent distress at this time. Patient is alert, sg oriented x 3, equal unlabored respirations, skin warm/dry/pink. pt resting at this time, eyes closed, resp even and unlabored, no s/s distress noted at this time. 03:00 Reassessment: Patient appears in no apparent distress at this time. pt resting at this sg time, eyes closed, resp even and unlabored, no s/s distress noted at this time. 04:00 Reassessment: Patient appears in no apparent distress at this time. pt resting at this sg time, eyes closed, resp even and unlabored, no s/s distress noted at this time. 05:00 Reassessment: pt resting eyes closed with respirations that are even and unlabored, pt sg continues to await for acceptance for treatment at the psych facility at this time. 06:00 Reassessment: Patient appears in no apparent distress at this time. pt resting eyes sg closed with respirations that are even and unlabored, pt continues to await for acceptance for treatment at the psych facility at this time. 07:10 Reassessment: Patient appears in no apparent distress at this time. Patient and/or ph family updated on plan of care and expected duration. Pain level reassessed. Pt asleep w/ equal and unlabored respirations, awakens easily to speak w/ Dr Jamison, calm and cooperative at this time. 08:00 Reassessment: Patient appears in no apparent distress at this time. Patient and/or ph family updated on plan of care and expected duration. Pain level reassessed. Patient is alert, oriented x 3, equal unlabored respirations, skin warm/dry/pink. 09:00 Reassessment: Patient appears in no apparent distress at this time. Patient and/or ph family updated on plan of care and expected duration. Pain level reassessed. Patient is alert, oriented x 3, equal unlabored respirations, skin warm/dry/pink. Reassessment: Pt requesting to go outside to smoke, informed pt that he is not allowed to leave ED and that this is a non-smoking campus, pt then states that he wants to leave, states, " I only came here because my wanted me too not because I did. I'm not going to kill myself and I am going to get help through my yazidi with my wall steamer.". 11:02 Reassessment: Patient appears in no apparent distress at this time. Patient and/or ph family updated on plan of care and expected duration. Pain level reassessed. Patient is alert, oriented x 3, equal unlabored respirations, skin warm/dry/pink. [facility] at bedside, JAME obtained, pt states, " This is bullshit man, I don't want to kill myself any more, this is de-humanizing this is why no one wants to come get help, because y'all take everything away from everyone and treat them like they're in retirement." explained to pt that due to his previous recent suicide attempts that the Dr does not feel comfortably letting him go home w/out being evaluated in a psychiatric facility, pt now compliant in handing over his belongings and changing into gown, belongings include: cellphone, charging cable, wallet w/ $20 melo, shoes, jeans, and belt. 12:15 Reassessment: Patient appears in no apparent distress at this time. Patient and/or ph family updated on plan of care and expected duration. Pain level reassessed. Pt resting w/ eyes closed, respirations even and unlabored, awaiting acceptance at psychiatric facility. 13:30 Reassessment: Patient appears in no apparent distress at this time. Patient and/or ph family updated on plan of care and expected duration. Pain level reassessed. Patient is alert, oriented x 3, equal unlabored respirations, skin warm/dry/pink. Pt eating lunch, tolerating well. 14:30 Reassessment: Patient appears in no apparent distress at this time. No changes from ph previously documented assessment. 15:30 Reassessment: Patient appears in no apparent distress at this time. Patient and/or ph family updated on plan of care and expected duration. Pain level reassessed. Patient is alert, oriented x 3, equal unlabored respirations, skin warm/dry/pink. 16:53 Reassessment: Patient appears in no apparent distress at this time. Patient and/or ph family updated on plan of care and expected duration. Pain level reassessed. Pt asleep w/ even and unlabored respirations. 18:30 Reassessment: Patient appears in no apparent distress at this time. Patient and/or ph family updated on plan of care and expected duration. Pain level reassessed. Patient is alert, oriented x 3, equal unlabored respirations, skin warm/dry/pink. 18:30 Reassessment: Azeem Edward [phone]. 18:45 Reassessment: pt spouse verified insurance information, transferred to patient access for input. 19:00 Reassessment: Patient appears in no apparent distress at this time. No changes from fu previously documented assessment. Patient and/or family updated on plan of care and expected duration. Pain level reassessed. Patient is alert, oriented x 3, equal unlabored respirations, skin warm/dry/pink. awaiting acceptance at a facility at this time. 20:10 Reassessment: Patient appears in no apparent distress at this time. Patient and/or sg family updated on plan of care and expected duration. Pain level reassessed. Patient is alert, oriented x 3, equal unlabored respirations, skin warm/dry/pink. pt sitting upright in bed at this time, states no complaints or thoughts of harming himself or others, denies hallucinations, awaiting pt acceptance at a facility at this time. 21:08 Reassessment: report given to Anh BENSON with [facility]. 21:36 Reassessment: Patient appears in no apparent distress at this time. MARCELINO Hanson with [facility]. 21:45 Reassessment: Security paged via radio, foreign policy officer Sulema at nurses station, requested patient belongings for psych patient transfer. 22:10 Reassessment: Patient appears in no apparent distress at this time. belongings at nurses station at this time, pt awaiting deputy for transportation to receiving facility. 09/28 05:23 Reassessment: attempt to contact pt spouse, Star at number listed, no answer at this sg time, will try again at later time. Psych: 09/26 15:39 Subjective: Patient's mood is sad, Delusions are denied, Hallucinations are auditory. zb Objective: Patient is cooperative, Speech is soft, Affect is flat. Interventions: Removed personal items and placed in bag. Suicide Risk Assessment: Sad Person Scale: Sex of patient: Male: Score 1 point. Age of patient: Score 1 point if patient 15-34. Depression: Score 1 point if signs of depression are present. Previous Attempt: Score 1 point if patient has previously attempted suicide. Substance Abuse: Score 1 point if patient abuses alcohol or drugs. Rational Thinking: Score 0 point if patient has rational thinking. Social Support: Organized Plan: Score 0 if patient did not have an organized plan in place. Relationship: Score 1 point if patient is , , , or for a single male Chronic Sickness: Score 0 point if patient does not have a chronic illness, debilitating, or severe disorder. Safety Checks: Personal items have not been removed. Door is closed to patient's room. No visitors are present at this time. Patient uses marijuana 2-4 joints sometimes, last used yesterday Last use was 1 days ago. Commitment: Patient will be a voluntary commitment. 09/27 00:25 Safety Checks: Personal items have not been removed. Door is open. No visitors are sg present at this time. Safety Checks: please refer to SI patient obs form attached to chart. Commitment: Patient will be a voluntary commitment. Vital Signs: 09/26 14:27 BP 126 / 78; Pulse 83; Resp 16 S; Temp 98(TE); Pulse Ox 99% on R/A; Weight 67.13 kg ca1 (R); Height 5 ft. 11 in. (180.34 cm) (R); Pain 5/10; 16:40 BP 134 / 76; Pulse 78; Resp 16; Pulse Ox 99% on R/A; dh4 17:38 BP 131 / 74; Pulse 73; Resp 16; Pulse Ox 99% on R/A; dh4 09/27 00:00 BP 134 / 72; Pulse 77; Resp 16; Temp 98.2; Pulse Ox 100% on R/A; sg 04:00 BP 130 / 72; Pulse 56; Resp 12 S; Pulse Ox 100% on R/A; sg 07:26 BP 110 / 64; Pulse 76; Resp 18; Temp 97.9; Pulse Ox 98% ; Pain 0/10; ap 16:22 BP 101 / 56; Pulse 72; Resp 17; Temp 98.3; Pulse Ox 98% ; Pain 0/10; ap 09/26 14:27 Body Mass Index 20.64 (67.13 kg, 180.34 cm) ca1 ED Course: 09/26 13:48 Patient arrived in ED. ds1 14:33 Triage completed. ca1 14:35 Arm band placed on right wrist. ca1 15:07 Brian Landeros PA is PHCP. cp 15:07 Brian Nix MD is Attending Physician. cp 15:20 Inserted saline lock: 20 gauge in left antecubital area, using aseptic technique. Blood zb collected. 15:32 Homa Nelson, RN is Primary Nurse. zb 15:39 CT Head Brain wo Cont In Process Unspecified. EDMS 15:42 Patient has correct armband on for positive identification. Bed in low position. Call zb light in reach. Side rails up X 1. Pulse ox on. NIBP on. Door closed. Noise minimized. Warm blanket given. 18:28 contacted [facility] to have screener evaluate pt. was told to call back when negative bd covid test is back. screener will then be called. 19:24 Called [facility] back and spoke with Darshana. Provided her with pt covid results and tt3 she said she would pass everything along to the senior front end developer screener. 20:41 Tita from [facility] called back after screening pt. Stated that she recommends tt3 inpatient due to loss of family and loss of employment along with previous attempts. Stated there was a recent diagnosis of schizophrenia as of September 14, 2020. Stated she would fax over recommendation letter and asked if we could fax over his clinicals. The fax number provided was [phone]. 22:59 Faxed pt chart to [facility], [facility], [facility] of [facility]3 [place], [facility] and [facility]. 09/27 00:00 Safety Checks: The door is open or patient has been placed in a hallway bed/chair. sg There are no family/friend visitors at this time Sitter present at this time. 00:00 Patient is placed in psych hold. sg 00:39 Primary Nurse role handed off by Homa Nelson RN sg 00:39 aHns Jean-Baptiste, RN is Primary Nurse. sg 01:00 Safety Checks: The door is open or patient has been placed in a hallway bed/chair. sg There are no family/friend visitors at this time Sitter present at this time. 02:00 Safety Checks: The door is open or patient has been placed in a hallway bed/chair. sg There are no family/friend visitors at this time Sitter present at this time. 03:00 Safety Checks: The door is open or patient has been placed in a hallway bed/chair. sg There are no family/friend visitors at this time Sitter present at this time. 04:00 Safety Checks: The door is open or patient has been placed in a hallway bed/chair. sg There are no family/friend visitors at this time Sitter present at this time. 07:04 Attending Physician role handed off by Brian Nix MD rn 07:04 Je Jamison MD is Attending Physician. rn 07:09 Yi Stubbs, RN is Primary Nurse. ph 09:57 contacted [facility] dept to have mental health deputy write a mental health alf order. 11:09 mental health deputy arrived to write mental health alf order. bd 11:10 contacted [facility], pt is still on waiting list. bd 11:13 faxed copy of alf order to [facility]. bd 20:24 faxed patient's information to all Psych Facilities. mw2 21:03 Nurse report with the nurse from [facility]. mw2 21:26 doc to doc with the physician from [facility]. mw2 21:41 administrative approval given by Carlos Decker/ patient has been accepted to [address]/ Dr. Devlin has accepted the patient in transfer. 21:59 [facility] notified called the SO to have them contact the Cashier Assistant to fill out [facility] papers. 23:05 [facility] notified notified the SO that we have a transfer warrant and need [facility] a [facility] to take patient to [facility]. 09/28 01:00 No provider procedures requiring assistance completed. IV discontinued, intact, sg bleeding controlled, No redness/swelling at site. Pressure dressing applied. Administered Medications: 09/26 17:41 Drug: NS 0.9% 1000 ml Route: IV; Rate: 1 bolus; Site: right antecubital; zb 09/27 11:15 Follow up: Response: No adverse reaction; IV Status: Completed infusion; IV Intake: ph 1000ml 11:15 Drug: Nicotine 21 mg/24 hr 1 patches Route: Transdermal; Site: affected area; ph 18:28 Follow up: Response: No adverse reaction ph Intake: 11:15 IV: 1000ml; Total: 1000ml. ph Outcome: 09/26 17:49 ER care complete, transfer ordered by . cp 09/28 01:00 Transferred Transfer form completed. Note: pt left the ED with deputy Roach sg Condition: stable Instructed on safety practices, Demonstrated understanding of instructions. 01:01 Patient left the ED. sg Signatures: Dispatcher [employer] EDMS Amy Lockhart Steven, RN RN Michelle Willoughby ds1 Je Jamison MD MD rn Hall, Patricia, RN RN ph Brian Landeros PA PA cp Ponce, Ana ap Umadhay, Felix, RN RN fu [place], MyKena mw2 Shireen Ashton RN RN [facility] Quinn Che 4 Jeffery Teixeira 3 Homa Nelson RN RN zb Corrections: (The following items were deleted from the chart) 09/26 15:42 15:38 Fall Risk None identified. zb zb 17:07 14:27 Acuity: RADU 3 ca1 ca1 09/27 21:08 19:00 Reassessment: Patient appears in no apparent distress at this time. No changes fu from previously documented assessment. Patient and/or family updated on plan of care and expected duration. Pain level reassessed. Patient is alert, oriented x 3, equal unlabored respirations, skin warm/dry/pink. fu
--- NOTE | 2020-09-26 17:50 | EDPHYS ---
Physician Documentation [facility] Name: Richi Edward Age: 25 yrs Sex: Male : 1995 Arrival Date: 09/26/2020 Time: 13:48 Bed 25 Private MD: ED Physician Je Jamison HPI: 09/26 15:30 This 25 yrs old Male presents to ER via Ambulatory with complaints of Psych cp Problem. 15:30 The patient presents to the emergency department with a history of a suicide gesture, cp where the patient took pills/medications, benzodiazepines, attempt to hang himself, suicide ideation. Onset: The symptoms/episode began/occurred gradually, and became worse 4 day(s) ago. Past psychiatric history: Prior diagnosis: schizophrenia, the patient has a previous inpatient psychiatric history, 10 year(s) ago. Associated signs and symptoms: Pertinent positives; headache. Historical: - Allergies: 14:35 aloe vera; ca1 - Home Meds: 14:35 olanzapine oral oral [Active]; Keppra Oral [Active]; ca1 - PMHx: 14:35 Seizures; Schizophrenia; ca1 - PSHx: 14:35 None; ca1 - Immunization history:: Flu vaccine is not up to date. - Social history:: Smoking status: Patient reports the use of cigarette tobacco products, smokes one-half pack cigarettes per day, Patient/guardian denies using alcohol, street drugs. ROS: 15:35 Constitutional: Negative for body aches, chills, fever, poor PO intake. cp 15:35 Eyes: Negative for injury, pain, redness, and discharge. cp 15:35 Neck: Negative for pain with movement, pain at rest, stiffness. 15:35 Cardiovascular: Negative for chest pain, palpitations. 15:35 Respiratory: Negative for cough, shortness of breath, wheezing. 15:35 Abdomen/GI: Negative for abdominal pain, nausea, vomiting, and diarrhea. 15:35 Neuro: Positive for headache, Negative for altered mental status, weakness. 15:35 Psych: Positive for auditory hallucinations, suicide gesture, suicidal ideation. 15:35 All other systems are negative. Exam: 15:40 Constitutional: The patient appears in no acute distress, alert, awake, non-toxic, well cp developed, well nourished. 15:40 Head/Face: Normocephalic, atraumatic. cp 15:40 Eyes: Periorbital structures: appear normal, Pupils: equal, round, and reactive to light and accomodation, Extraocular movements: intact throughout, Conjunctiva: normal, no exudate, no injection, Sclera: no appreciated abnormality, Lids and lashes: appear normal, bilaterally. 15:40 ENT: External ear(s): are unremarkable, Nose: is normal, Mouth: Lips: moist, Oral mucosa: pink and intact, moist, Posterior pharynx: Airway: no evidence of obstruction, patent. 15:40 Neck: ROM/movement: is normal, is supple, without pain, no range of motions limitations. 15:40 Chest/axilla: Inspection: normal, Palpation: is normal, no crepitus, no tenderness. 15:40 Cardiovascular: Rate: normal, Rhythm: regular. 15:40 Respiratory: the patient does not display signs of respiratory distress, Respirations: normal, no use of accessory muscles, no retractions, labored breathing, is not present, Breath sounds: are clear throughout, no decreased breath sounds, no stridor, no wheezing. 15:40 Abdomen/GI: Inspection: abdomen appears normal, Bowel sounds: active, all quadrants, Palpation: abdomen is soft and non-tender, in all quadrants, rebound tenderness, is not appreciated, voluntary guarding, is not appreciated, involuntary guarding, is not appreciated. 15:40 Back: pain, is absent, ROM is normal. 15:40 Skin: no rash present. 15:40 Neuro: Orientation: to person, place \T\ time. Mentation: is normal, Cerebellar function: is grossly normal, Motor: moves all fours, strength is normal, Sensation: is normal. 15:48 ECG was reviewed by the Attending Physician. cp Vital Signs: 14:27 BP 126 / 78; Pulse 83; Resp 16 S; Temp 98(TE); Pulse Ox 99% on R/A; Weight 67.13 kg ca1 (R); Height 5 ft. 11 in. (180.34 cm) (R); Pain 5/10; 16:40 BP 134 / 76; Pulse 78; Resp 16; Pulse Ox 99% on R/A; dh4 17:38 BP 131 / 74; Pulse 73; Resp 16; Pulse Ox 99% on R/A; dh4 09/27 00:00 BP 134 / 72; Pulse 77; Resp 16; Temp 98.2; Pulse Ox 100% on R/A; sg 04:00 BP 130 / 72; Pulse 56; Resp 12 S; Pulse Ox 100% on R/A; sg 07:26 BP 110 / 64; Pulse 76; Resp 18; Temp 97.9; Pulse Ox 98% ; Pain 0/10; ap 16:22 BP 101 / 56; Pulse 72; Resp 17; Temp 98.3; Pulse Ox 98% ; Pain 0/10; ap 09/26 14:27 Body Mass Index 20.64 (67.13 kg, 180.34 cm) ca1 MDM: 09/26 15:12 Patient medically screened. [facility] 17:45 Data reviewed: vital signs, nurses notes, lab test result(s), EKG, radiologic studies, cp CT scan, and as a result, I will discharge patient. 17:45 Counseling: I had a detailed discussion with the patient and/or guardian regarding: the historical points, exam findings, and any diagnostic results supporting the discharge/admit diagnosis, lab results, radiology results, the need to transfer to another facility, [facility] does not immediately have the required specialist. 09/27 07:05 ED course: Pt signed out to me by Dr. Higgins, pending psychiatric transfer, pt stable, rn medically cleared, sleeping comfortably. . 21:32 Physician consultation: was contacted at 21:32, regarding regarding transfer, [facility] patient's condition, DR Singh, will be accepting physician. 09/26 15:07 Order name: Acetaminophen; Complete Time: 16:28 cp 09/26 15:07 Order name: Basic Metabolic Panel; Complete Time: 16:28 cp 09/26 21:24 Interpretation: Normal except: CL 108. 09/26 15:07 Order name: CBC with Diff; Complete Time: 15:59 cp 09/26 15:07 Order name: ETOH Level; Complete Time: 16:28 cp 09/26 15:07 Order name: Hepatic Function; Complete Time: 16:28 cp 09/26 15:07 Order name: PT-INR; Complete Time: 21:24 cp 09/26 15:07 Order name: Ptt, Activated; Complete Time: 21:24 cp 09/26 15:07 Order name: Salicylate; Complete Time: 16:28 cp 09/26 15:07 Order name: Urine Drug Screen; Complete Time: 21:28 cp 09/26 15:17 Order name: CT Head Brain wo Cont; Complete Time: 15:59 cp 09/26 16:28 Interpretation: Report reviewed. 09/26 19:03 Order name: SARS-COV-2 RT PCR; Complete Time: 21:24 EDMS 09/26 21:15 Order name: Urine Dipstick--Ancillary (enter results); Complete Time: 22:31 tt3 09/26 15:07 Order name: EKG; Complete Time: 15:08 cp 09/26 15:07 Order name: EKG - Nurse/Tech; Complete Time: 23:36 cp 09/26 15:07 Order name: IV Saline Lock; Complete Time: 15:33 cp 09/26 15:07 Order name: Labs collected and sent; Complete Time: 15:33 cp 09/26 15:07 Order name: Urine Dipstick-Ancillary (obtain specimen); Complete Time: 21:16 cp 09/27 07:04 Order name: Diet Finger Food; Complete Time: 07:04 sg 09/27 11:54 Order name: Diet Finger Food; Complete Time: 11:54 ph 09/27 16:15 Order name: Diet Finger Food; Complete Time: 16:15 ph EC/19 15:48 Rate is 69 beats/min. Rhythm is regular. MI interval is normal. QRS interval is normal. cp QT interval is normal. T waves are Flattened in lead aVL. Interpreted by me. Reviewed by me. Administered Medications: 17:41 Drug: NS 0.9% 1000 ml Route: IV; Rate: 1 bolus; Site: right antecubital; zb 09/27 11:15 Follow up: Response: No adverse reaction; IV Status: Completed infusion; IV Intake: ph 1000ml 11:15 Drug: Nicotine 21 mg/24 hr 1 patches Route: Transdermal; Site: affected area; ph 18:28 Follow up: Response: No adverse reaction ph Disposition: 09/28 08:46 Co-signature as Attending Physician, Brian Nix MD I agree with the assessment and agustín plan of care. Disposition: 09/26/20 17:49 Transfer ordered to [facility]. Diagnosis are Suicidal ideations, Suicide attempt. - Reason for transfer: Higher level of care. - Accepting physician is DR Singh. - Condition is Stable. - Problem is new. - Symptoms are unchanged. Signatures: Dispatcher [employer] EDNE Hans Jean-Baptiste, RN RN Brian Madison MD MD cha Nieto, Roman, MD MD rn Hall, Patricia RN RN Brian Ashton, KATHRYN PERALTA cp Shireen Ashton RN RN Homa Moore RN RN zb Corrections: (The following items were deleted from the chart) 09/26 18:12 16:03 CORONAVIRUS+MR.LAB.BRZ ordered. EDNE EDMS 09/27 21:31 09/26 17:49 09/26/2020 17:49 Transfer ordered to Psych Facility. Diagnosis is Suicidal cp ideations. Reason for transfer: Higher level of care. Accepting physician is Doctor. Condition is Stable. Problem is new. Symptoms are unchanged. cp 09/28 01:09/27 21:31 09/26/2020 17:49 Transfer ordered to Psych Facility. Diagnosis is Suicidal sg ideations; Suicide attempt. Reason for transfer: Higher level of care. Accepting physician is DR Singh. Condition is Stable. Problem is new. Symptoms are unchanged. cp
[2020-09-26 21:38] LABS: Urine Blood NEGATIVE (NEG); Urine Glucose NEGATIVE (NEG); Urine Protein NEGATIVE (NEG); Urine Specific Gravity 1.025 (1.005-1.030)
[2020-09-27] MEDS ORDERED: NICOTINE 21 MG/PAT TD ONE (10:59)
--- NOTE | 2020-09-27 12:11 | EKG ---
Test Date: 2020-09-26 Test Time: 15:45:01 Packing Machine Feeder: [id number] MEASUREMENT RESULTS: Intervals: Rate: 69 [place]: 140 QRSD: 92 QT: 354 QTc: 379 [place]: P: 48 [place]: 140 QRS: 73 T: 62 INTERPRETIVE STATEMENTS: Normal sinus rhythm Normal ECG Compared to ECG 05/05/2009 13:53:57 No significant changes Electronically Signed On 09-27-20 12:10:29 INDUSTRIAL MANUFACTURING TECHNICIAN by Yousuf Solis
[2020-09-27 18:13] LABS: Barbiturates NEGATIVE (NEGATIVE); Benzodiazepines NEGATIVE (NEGATIVE); Cocaine NEGATIVE (NEGATIVE); METHAMPHETAM NEGATIVE (NEGATIVE); Methadone NEGATIVE (NEGATIVE); Opiates NEGATIVE (NEGATIVE); Phencyclidine NEGATIVE (NEGATIVE); THC Cannibis POSITIVE (NEGATIVE)
[2020-09-28 01:25] VITALS: O2SAT 98
[2020-09-28 01:27] VITALS: BP 101/56; TEMP 98.3
== END 2020-09-28 01:01 ==
LOC: ER 13:45
DX: R45.851 Suicidal ideations (principal); F20.9 Schizophrenia, unspecified; G40.909 Epilepsy, unspecified, not intractable, without status epilepticus; F17.210 Nicotine dependence, cigarettes, uncomplicated; Z20.822 Contact with and (suspected) exposure to COVID-19; Z91.048 Other nonmedicinal substance allergy status
CPT/HCPCS: 96361; 93005; 85025; 80048; 36415; 80320; 80329 ×2; 85610; 80076; 85730; 81003; 70450; 96360; 99285; U0003

== ENCOUNTER 2024-03-05 21:42 | Emergency (ER) | payer OTHER, SELFPAY ==
--- OUTSIDE RECORDS SUMMARY | 2024-03-05 21:52 | XMS REPORT | Continuity of Care Document ---
Author Name Unknown Address [address] [facility] [address] [place] [address] [facility] Address [address] [facility] [address] [place] [address] Care Team Providers Care Reception Agent Name Role Phone PCP, PATIENT DOES NOT HAVE A Primary Care Physic roland Unavailable Kali Almendarez Attending Clinician Unavailable Clinic, [facility] Neurology Continuity Attending Clini anmol Unavailable ALLI SALINAS Attending Clinician Un available Lorri Aleman DO Attending Clinician [phone] Alli Salinas MD Attending Clinician Doctor Unassigned, [place] Attending Clinician U Misbah White Attending Clinician [phone] MISBAH SALEEM Attending Clinician Unavailable Félix Meza MD Attending Clinician [phone] FÉLIX MEZA Attending Clinician Unavailable Rafi Aguero DO Attending Clinician [phone] Kali Almendarez Admitting Clinician Unavailable FÉLIX MEZA Admitting Clinician Unavailable Payers Payer Name Policy Type Policy Number Effective Date Expirati on Date Source [employer] MEDICAID [id number] 2020 00:00:00 Problems Condition Name Condition Details Condition Category Status Onset Date Resolution Date Last Treatment Date Treating Clinician Comments Source Seizure Seizure Disease Active 09-20 00:00: 00 [facility] No known active problems No known active problems Disease [facility] Allergies, Adverse Reactions, Alerts Allergy Name Allergy Type Status Severity Reaction(s) Onset Date Inactive Date Treating Clinician Comments Source No Known Drug Allergie s Allergy to substanc e Active 05-21 03:41: 44 [facility] No Known Drug Allergie s Allergy to substanc e Active 05-21 00:13: 36 [facility] No Known Drug Allergie s DA Active U 05-21 00:00: 00 [facility] ALOE DRUG INGREDI Active Swelling 2019-09 2 00:00: 00 [facility] Aloe Propensi ty to adverse reaction s Active Swelling 2019-09 2 00:00: 00 [facility] Social History Social Habit Start Date Stop Date Quantity Comments Source Exposure to SARS-CoV-2 (event) Not sure [facility] History of tobacco use [facility] Tobacco use and exposure 2020-09-22 00:00:00 2020-09-22 00:00:00 Current user [facility] Alcohol intake 2020-09-22 00:00:00 2020-09-22 00:00:00 Current drinker of alcohol (finding) [facility] Alcohol Comment 2020-09-18 00:00:00 2020-09-18 00:00:00 Social [facility] Sex Assigned At 1995 00:00:00 1995 00:00:00 Male [facility] Smoking Status Start Date Stop Date Source Unknown if ever smoked [facility] Ex-smoker (finding) 2023-05-21 03:41:00 2023-05-21 03: 41:00 [facility] Current every day smoker 2020-09-22 00:00:00 [facility] Medications Ordered Medication Name Filled Medication Name Start Date Stop Date Current Medication? Ordering Clinician Indication Dosage Frequency Signature (SIG) Comments Components Source Acetaminoph en (Tylenol Extra Strength) 500 MG Tab 05-22 00:00: 00 No 1000MG Every 6 Hours [facility] Cyclobenzap rine (Flexeril) 10 MG Tab 05-22 00:00: 00 No 10MG Three Times Daily [facility] Gabapentin (Neurontin) 300 MG Cap 05-22 00:00: 00 No 300MG Three Times Daily [facility] Ibuprofen (Motrin Ib) 200 MG Tab 05-22 00:00: 00 No 400MG Every 6 Hours [facility] Tramadol Hcl (Ultram) 50 MG Tab 05-22 00:00: 00 No 50MG Every 6 Hours [facility] NaCl 0.9% (NS) bolus infusion 1,000 mL 09-22 21:00: 00 09-22 21:08 :00 No 1000mL at 999 mL/hr, 1,000 mL, IV Infusion, ONCE, 1 dose, Fri09/22/20 at 1500, VIDYA [facility] levETIRAcet am (KEPPRA) tablet 750 mg 2019-09 20:45: 00 08-21 20:39 :00 No 750mg 750 mg, Oral, ONCE NOW, 1 dose, Fri08/21/20 at 1445, Routine [facility] OLANZapine ZYDIS (ZyPREXA ZYDIS) disintegrat ing tablet 10 mg 2019-09 20:30: 00 08-21 19:47 :00 No 10mg 10 mg, Oral, ONCE, 1 dose, Fri08/21/20 at 1430, VIDYA [facility] OLANZapine 10 mg tablet 2019-09 00:00: 00 Yes [id number] 10mg Take 1 tablet by mouth at bedtime. [facility] levETIRAcet am (KEPPRA) 750 mg tablet 2019-09 00:00: 00 Yes [id number] 750mg Take 1 tablet by mouth 2 (two) times daily. [facility] levETIRAcet am (KEPPRA) 500 mg tablet 2019-09 00:00: 00 Yes [id number] 750mg Take 1.5 tablets by mouth 2 (two) times daily. [facility] OLANZapine (ZYPREXA) 5 mg tablet 2019-09 00:00: 00 Yes [id number] 10mg Take 2 tablets by mouth daily. [facility] OLANZapine (ZYPREXA) tablet 10 mg 2019-09 15:00: 00 Yes 10mg 10 mg, Oral, DAILY, First dose on Colleen 08/17/20 at 0900, Until Discontinu ed, Routine [facility] OLANZapine (ZYPREXA) 5 mg tablet 2019-09 00:00: 00 Yes [id number] 5mg Take 1 tablet by mouth daily. [facility] levETIRAcet am (KEPPRA) in NACL (ISO-OS) 1,000 mg/100 mL RTU 2019-09 19:30: 00 08-10 18:50 :00 No 1000mg 1,000 mg, IV Infusion, ONCE, 1 dose, Colleen 08/10/20 at 1330, 100 mL [facility] levETIRAcet am (KEPPRA) 500 mg tablet 2019-09 00:00: 00 Yes [id number] 500mg Take 1 tablet by mouth 2 (two) times daily. [facility] Vital Signs Vital Name Observation Time Observation Value Comments S ource WEIGHT 2023-05-21 02:28:00 67.733871 kg HEIGHT 2023-05-21 02:28:00 180.34 cm Body Temperature 2023-05-22 16:13:00 97.6 [degF] [facility] Heart Rate 2023-05-22 16:13:00 100 /min [facility] Respiratory rate 2023-05-22 16:13:00 15 /min [facility] Oxygen saturation by Pulse oximetry 2023-05-22 16:13:00 99 /min [facility] BP Systolic 2023-05-22 16:13:00 106 mm[Hg] [facility] BP Diastolic 2023-05-22 16:13:00 76 mm[Hg] [facility] Body Temperature 2023-05-22 16:13:00 97.6 [degF] [facility] Heart Rate 2023-05-22 16:13:00 100 /min [facility] Respiratory rate 2023-05-22 16:13:00 15 /min [facility] Oxygen saturation by Pulse oximetry 2023-05-22 16:13:00 99 /min [facility] BP Systolic 2023-05-22 16:13:00 106 mm[Hg] [facility] BP Diastolic 2023-05-22 16:13:00 76 mm[Hg] [facility] Body Temperature 2023-05-21 01:35:00 98.4 [degF] [facility] Heart Rate 2023-05-21 01:35:00 59 /min [facility] Respiratory rate 2023-05-21 01:35:00 20 /min [facility] Oxygen saturation by Pulse oximetry 2023-05-21 01:35:00 98 /min [facility] BP Systolic 2023-05-21 01:35:00 131 mm[Hg] [facility] BP Diastolic 2023-05-21 01:35:00 69 mm[Hg] [facility] Height 2023-05-21 01:26:00 180.34 cm [facility] Weight 2023-05-21 01:26:00 67.58 kg [facility] BMI (Body Mass Index) 2023-05-21 01:26:00 20.7 kg/m2 [facility] Height 2023-05-21 01:26:00 180.34 cm [facility] Weight 2023-05-21 01:26:00 67.58 kg [facility] BMI (Body Mass Index) 2023-05-21 01:26:00 20.7 kg/m2 [facility] WEIGHT 2023-05-21 02:28:00 67.190900 kg HEIGHT 2023-05-21 02:28:00 180.34 cm Systolic blood pressure 2020-09-22 20:40:00 117 mm[Hg] [facility] Diastolic blood pressure 2020-09-22 20:40:00 75 mm[Hg] [facility] Heart rate 2020-09-22 20:40:00 95 /min [facility] Body temperature 2020-09-22 20:40:00 36.67 Amelie [facility] Respiratory rate 2020-09-22 20:40:00 16 /min [facility] Body weight 2020-09-22 20:40:00 68.04 kg [facility] BMI 2020-09-22 20:40:00 21.52 kg/m2 [facility] Oxygen saturation in Arterial blood by Pulse oximetry 2020-09-22 20:40:00 99 /min [facility] Systolic blood pressure 2020-09-18 15:15:00 121 mm[Hg] [facility] Diastolic blood pressure 2020-09-18 15:15:00 69 mm[Hg] [facility] Heart rate 2020-09-18 15:15:00 92 /min [facility] Body temperature 2020-09-18 15:15:00 36.72 Amelie [facility] Body height 2020-09-18 15:15:00 177.8 cm [facility] Body weight 2020-09-18 15:15:00 68.629 kg [facility] BMI 2020-09-18 15:15:00 21.71 kg/m2 [facility] Oxygen saturation in Arterial blood by Pulse oximetry 2020-09-18 15:15:00 99 /min [facility] Oxygen saturation in Arterial blood by Pulse oximetry 2020-08-29 01:00:48 98 /min [facility] Systolic blood pressure 2020-08-29 01:00:48 124 mm[Hg] [facility] Diastolic blood pressure 2020-08-29 01:00:48 75 mm[Hg] [facility] Heart rate 2020-08-29 01:00:48 88 /min [facility] Body temperature 2020-08-29 01:00:48 36.72 Amelie [facility] Respiratory rate 2020-08-29 01:00:48 18 /min [facility] Body height 2020-08-28 22:07:00 182.9 cm [facility] Body weight 2020-08-28 22:07:00 72.576 kg [facility] BMI 2020-08-28 22:07:00 21.70 kg/m2 [facility] Systolic blood pressure 2020-08-21 20:45:12 115 mm[Hg] [facility] Diastolic blood pressure 2020-08-21 20:45:12 66 mm[Hg] [facility] Heart rate 2020-08-21 20:45:12 75 /min [facility] Body temperature 2020-08-21 20:45:12 36.72 Amelie [facility] Respiratory rate 2020-08-21 20:45:12 17 /min [facility] Oxygen saturation in Arterial blood by Pulse oximetry 2020-08-21 20:45:12 98 /min [facility] Body weight 2020-08-21 18:55:00 70.308 kg [facility] BMI 2020-08-21 18:55:00 30.27 kg/m2 [facility] Systolic blood pressure 2020-08-16 21:19:00 107 mm[Hg] [facility] Diastolic blood pressure 2020-08-16 21:19:00 55 mm[Hg] [facility] Heart rate 2020-08-16 21:19:00 81 /min [facility] Respiratory rate 2020-08-16 21:19:00 17 /min [facility] Oxygen saturation in Arterial blood by Pulse oximetry 2020-08-16 21:19:00 98 /min [facility] Body temperature 2020-08-16 19:37:19 37.22 Amelie [facility] Body height 2020-08-16 19:21:00 152.4 cm [facility] Body weight 2020-08-16 19:21:00 70.308 kg [facility] BMI 2020-08-16 19:21:00 30.27 kg/m2 [facility] Systolic blood pressure 2020-08-10 20:22:00 117 mm[Hg] [facility] Diastolic blood pressure 2020-08-10 20:22:00 61 mm[Hg] [facility] Heart rate 2020-08-10 20:22:00 65 /min [facility] Respiratory rate 2020-08-10 20:22:00 18 /min [facility] Oxygen saturation in Arterial blood by Pulse oximetry 2020-08-10 20:22:00 100 /min [facility] Body temperature 2020-08-10 18:15:00 36.5 Amelie [facility] Body weight 2020-08-10 18:15:00 72.576 kg [facility] Procedures Procedure Date / Time Performed Performing Clinicia n Source CT Lower Ext Lt WO Con 2023-05-21 07:40:[address] [facility] CT Lower Ext Lt WO Con 2023-05-21 07:40:00 [facility] XR Wrist 3 Rt View STANDARD 2023-05-21 00:48:00 [facility] XR Wrist 3 Rt View STANDARD 2023-05-21 00:48:00 [facility] XR Wrist 3 Rt View STANDARD 2023-05-21 00:00:00 [facility] XR Foot Lt 3 View STANDARD 2023-05-21 00:00:00 [facility] XR Wrist 3 Rt View STANDARD 2023-05-21 00:00:00 [facility] XR Foot Lt 3 View STANDARD 2023-05-21 00:00:00 [facility] EKG 12 Lead in Emergency Room 2023-05-20 20:03:00 [facility] EKG 12 Lead in Emergency Room 2023-05-20 20:03:[address] [facility] [address] Brain WO Con 2023-05-20 19:26:00 [facility] CT Cervical Spine WO Con 2023-05-20 19:26:[address] [facility] [address] Chest Abd Pelvis W Con 2023-05-20 19:26:[address] [facility] [address] Brain WO Con 2023-05-20 19:26:00 [facility] CT Cervical Spine WO Con 2023-05-20 19:26:[facility] Abd Pelvis W Con 2023-05-20 19:26:00 [facility] XR Ankle Lt 3 View STANDARD 2023-05-20 19:24:00 [facility] XR Foot Lt 3 View STANDARD 2023-05-20 19:24:00 [facility] XR Knee Rt 4 View STANDARD 2023-05-20 19:24:00 [facility] XR Shoulder Rt 3 View STANDARD 2023-05-20 19:24:00 [facility] XR Wrist 3 Rt View STANDARD 2023-05-20 19:24:00 [facility] XR Ankle Lt 3 View STANDARD 2023-05-20 19:24:00 [facility] XR Foot Lt 3 View STANDARD 2023-05-20 19:24:00 [facility] XR Knee Rt 4 View STANDARD 2023-05-20 19:24:00 [facility] XR Shoulder Rt 3 View STANDARD 2023-05-20 19:24:00 [facility] XR Wrist 3 Rt View STANDARD 2023-05-20 19:24:00 [facility] CONSENT/REFUSAL FOR DIAGNOSIS AND TREATMENT 2020-09-18 14:59:42 Doctor Unassigned, [place] [facility] URINALYSIS 2020-08-21 19:37:00 Félix Meza [facility] ADC / LCC - DRUG SCREEN TRIAGE 2020-08-21 19:37:00 Félix Meza [facility] COMP. METABOLIC PANEL ([id number]) 2020-08-21 19:31:00 Félix Meza [facility] ETHANOL 2020-08-21 19:31:00 Félix Meza [facility] CBC WITH DIFF 2020-08-21 19:31:00 Félix Meza [facility] URINALYSIS 2020-08-16 19:41:00 Rafi Aguero [facility] ADC / LCC - DRUG SCREEN TRIAGE 2020-08-16 19:41:00 Rafi Aguero [facility] COMP. METABOLIC PANEL ([id number]) 2020-08-16 19:38:00 Rafi Aguero [facility] SALICYLATE 2020-08-16 19:38:00 [facility] ETHANOL 2020-08-16 19:38:00 [facility] NOTICE OF PRIVACY PRACTICES 2020-08-16 19:07:49 Doctor Unassigned, [place] [facility] CT HEAD WO CONTRAST 2020-08-10 19:34:10 Mary Lou Meza [facility] MAGNESIUM 2020-08-10 18:34:00 Félix Meza [facility] COMP. METABOLIC PANEL ([id number]) 2020-08-10 18:34:00 Félix Meza [facility] CBC WITH DIFF 2020-08-10 18:34:00 Félix Meza [facility] Encounters Start Date/Time End Date/Time Encounter Type Admission Type Attending Clinicians Care Facility Care Department Encounter ID Source 2021-07-07 17:37:28 Emergency [facility] [id number] [facility] 2023-05-22 14:47:00 2023-05-22 19:00:00 Inpatient TRAUMA Ohaju, [facility] [id number] [facility] 2023-05-20 22:01:00 2023-05-20 19:03:00 [facility]aju[facility] [id number] [facility] 2020-12-07 00:00:00 2020-12-07 00:00:00 Letter (Out) Clinic, [facility] Neurology Continuity [facility] [id number] [id number] [facility] 2020-10-12 09:00:00 2020-10-12 09:00:00 Outpatient ALLI AWAD [facility] [id number] [facility] 2020-09-26 00:00:00 2020-09-26 00:00:00 Outpatient ALLI AWAD [facility] [id number] [facility] 2020-09-22 14:28:00 2020-09-22 15:08:00 Emergency Lorri Aleman [facility] [id number] [id number] [id number] [id number] [facility] 2020-09-18 09:02:00 2020-09-18 10:25:42 Office Visit Alli Salinas [facility] Medical Office Building [id number] [id number] [id number] [id number] [facility] 2020-09-18 09:00:00 2020-09-18 09:00:00 Outpatient R ALLI SALINAS [facility] [id number] [facility] 2020-09-18 00:00:00 2020-09-18 00:00:00 Orders Only Doctor Unassigned, [place] [facility] [id number] 350.1.13.10 4.2.7.2.686 [id number] [facility] 2020-08-28 16:06:00 2020-08-28 19:02:00 Emergency Misbah Saleem [facility] ([facility] [id number] [id number] 4.2.7.2.686 [id number] [facility] 2020-08-28 16:06:00 2020-08-28 16:06:00 Emergency X MISBAH SALEEM [facility] ERT [id number] [facility] 2020-08-21 12:57:00 2020-08-21 14:47:00 Emergency Félix Meza [facility] ([facility]) [id number] [id number] [id number] [id number] [facility] 2020-08-21 12:57:00 2020-08-21 12:57:00 Emergency X FÉLIX MEZA [facility] ERT [id number] [facility] 2020-08-16 13:15:00 2020-08-16 16:08:00 Emergency Rafi Aguero [facility] [id number] [id number] 4.2.7.2.686 [id number] [facility] 2020-08-16 13:15:00 2020-08-16 13:15:00 Emergency X [facility] ERT [id number] [facility] 2020-08-10 12:20:00 2020-08-10 14:29:00 Emergency Félix Meza [facility] ([facility]) [id number] [id number] [id number] [id number] [facility] 2020-08-10 12:20:00 2020-08-10 14:29:00 Emergency X FÉLIX MEZA [facility] ERT [id number] [facility] Results Test Description Test Time Test Comments Results Result Co mments Source [id number] 06:27:00* Test Item Value Reference Range Interpretation Comme nts Chemistry (test code = NA-T) 135 mmol/L 136-145 L Chemistry (test code = K-T) 3.6 mmol/L 3.5-5.1 N Chemistry (test code = CL-T) 103 mmol/L 98-107 N Chemistry (test code = CO2-T) 23 mmol/L 22-29 N Chemistry (test code = ANGP) 13 mmol/L 10-20 N Chemistry (test code = BUN) 8 mg/dL 8.9-20.6 L Chemistry (test code = CREATT) 0.76 mg/dL 0.7-1.3 N Chemistry (test code = EGFRCR) 127 Reference Range for Estimated GFR: Greater than 90 mL/min/1.73 [id number] eGFR is based on the CKD-EPI 2020 equation thatdoes not use a race coefficient. Chemistry (test code = GLU-T) 117 mg/dL 70-105 H Chemistry (test code = CA-T) 9.0 mg/dL 7.8-10.44 N [id number] 06:27:00* Test Item Value Reference Range Interpretation Comme nts Chemistry (test code = PHOS-T) 3.1 mg/dL 2.3-4.7 N [id number] 06:27:00* Test Item Value Reference Range Interpretation Comme nts Chemistry (test code = MG-T) 1.8 mg/dL 1.6-2.6 N Serum or plasma sodium measurement (moles/volume)2023-05-21 05:17:00* Test Item Value Reference Range Interpretation Comme nts Sodium Level (test code = 2951-2) 135 mmol/L 136-145 [facility] or plasma potassium measurement (moles/volume) 2023-05-21 05:17:00* Test Item Value Reference Range Interpretation Comme nts Potassium Level (test code = 2823-3) 3.6 mmol/L 3.5-5.1 [facility] or plasma chloride measurement (moles/volume) 2023-05-21 05:17:00* Test Item Value Reference Range Interpretation Comme [facility] Chloride Level (test code = 2075-0) 103 mmol/L 98-107 [facility] or plasma carbon dioxide, total measurement (moles/volume)2023-05-21 05:17:00* Test Item Value Reference Range Interpretation Comme nts Carbon Dioxide Level (test c ode = 8-9) 23 mmol/L 22-29 [facility] or plasma anion [id number] 05:17:00* Test Item Value Reference Range Interpretation Comme nts Anion Gap (test code = 54992-6) 13 mmol/L 10-20 [facility] or plasma urea nitrogen measurement (mass/volume)2023-05-21 05:17:00* Test Item Value Reference Range Interpretation Comme nts Blood Urea Nitrogen (test co de = 3094-0) 8 mg/dL 8.9-20.6 [facility] or plasma creatinine measurement (mass/volume) 2023-05-21 05:17:00* Test Item Value Reference Range Interpretation Comme nts Creatinine (test code = 2160-0) 0.76 mg/dL 0.7-1.3 [facility]1.73 sq M.predicted [Volume Rate/Area] in Serum, Plasma [id number] 05:17:00* Test Item Value Reference Range Interpretation Comme [facility] Estimated GFR (CKD-EPI 2020) (test code = 27236-1) 127 [facility] [Mass/volume] in Serum or [id number] 05:17:00* Test Item Value Reference Range Interpretation Comme [facility] Glucose Level (test code = 2345-7) 117 mg/dL 70-105 [facility] or plasma calcium measurement (mass/volume) 2023-05-21 05:17:00* Test Item Value Reference Range Interpretation Comme [facility] Calcium Level (test code = 61035-8) 9.0 mg/dL 7.8-10.44 [facility] or plasma phosphate measurement (mass/volume) 2023-05-21 05:17:00* Test Item Value Reference Range Interpretation Comme [facility] Phosphorus Level (test code = 2777-1) 3.1 mg/dL 2.3[facility].7 [facility] magnesium measurement (mass/volume) 2023-05-21 05:17:00* Test Item Value Reference Range Interpretation Comme [facility] Magnesium Level (test code = 24986-4) 1.8 mg/dL 1.6-2.6 [facility] [#/volume] in Blood by Automated count 2023-05-21 05:17:00* Test Item Value Reference Range Interpretation Comme [facility] White Blood Count (test code = 6690-2) 17.7 10x3/uL 4.8-10.8 [facility] erythrocytes automated count (number/volume) 2023-05-21 05:17:00* Test Item Value Reference Range Interpretation Comme [facility] Red Blood Count (test code = 789-8) 4.19 mill/uL 4.70-6.10 [facility] hemoglobin measurement (mass/volume)2023-05-21 05:17:00* Test Item Value Reference Range Interpretation Comme [facility] Hemoglobin (test code = 718-7) 12.9 g/dL 14.0-18.0 [facility], whole [id number] 05:17:00* Test Item Value Reference Range Interpretation Comme [facility] Hematocrit (test code = 69337-0) 38.7 % 42.0-52.0 [facility] corpuscular volume 2023-05-21 05:17:00* Test Item Value Reference Range Interpretation Comme [facility] Mean Corpuscular Volume (tere t code = 787-2) 92.4 fl 78.0-98.0 [facility] eryth[facility] mean corpuscular hemoglobin (mass per erythrocyte)2023-05-21 05:17:00* Test Item Value Reference Range Interpretation Comme [facility] Mean Corpuscular Hemoglobin (test code = 785-6) 30.8 pg 27.0-31.0 [facility] erythrocyte mean corpuscular hemoglobin concentration measurement (mass/[id number] 05:17:00* Test Item Value Reference Range Interpretation Comme [facility] Mean Corpuscular Hemoglobin Concent (test code = 786-4) 33.3 g/dL 32.0-36.0 [facility] erythrocyte distribution width ratio 2023-05-21 05:17:00* Test Item Value Reference Range Interpretation Comme [facility] Red Cell Distribution Width (test code = 788-0) 13.3 % 11.5-14.5 [facility] blood platelet count (count/volume) 2023-05-21 05:17:00* Test Item Value Reference Range Interpretation Comme [facility] Platelet Count (test code = 777-3) 163 10x3/uL 130-400 [facility] blood platelet mean [id number] 05:17:00* Test Item Value Reference Range Interpretation Comme [facility] Mean Platelet Volume (test c ode = 15617-0) 10.7 fL 7.4-10.4 [facility] blood neutrophils/100 hotqsjeddk0623-26-36 05:17:00* Test Item Value Reference Range Interpretation Comme [facility] Neutrophils % (test code = 770-8) 84.7 % 42.0-75.0 [facility] Blood by Automated count 2023-05-21 05:17:00* Test Item Value Reference Range Interpretation Comme [facility] Lymphocytes % (test code = 736-9) 7.5 % 21.0-51.0 [facility] frrooxuscy2190-02-17 05:17:00* Test Item Value Reference Range Interpretation Comme [facility] Monocytes % (test code = 5905-5) 6.9 % 0.0-10.0 [facility]100 reprgqexnb0198-00-29 05:17:00* Test Item Value Reference Range Interpretation Comme [facility] Eosinophils % (test code = 713-8) 0.1 % 0.0-10.0 [facility]100 cwjbljiqje1809-39-93 05:17:00* Test Item Value Reference Range Interpretation Comme [facility] Basophils % (test code = 706-2) 0.2 % 0.0-1.0 [facility] blood immature granulocyte count as percentage of total tqmxodfivv8180-85-44 05:17:00* Test Item Value Reference Range Interpretation Comme [facility] Immature Granulocyte % (Auto ) (test code = 75403-5) 0.6 % 0-5 [facility] neutrophils automated count (number/volume) 2023-05-21 05:17:00* Test Item Value Reference Range Interpretation Comme [facility] Neutrophils # (test code = 751-8) 15.0 thou/uL 1.40-6.50 [facility] monocytes automated count (number/volume) 2023-05-21 05:17:00* Test Item Value Reference Range Interpretation Comme [facility] Monocytes # (test code = 742-7) 1.2 thou/uL 0.11-0.59 [facility] eosinophils automated count (count/volume) 2023-05-21 05:17:00* Test Item Value Reference Range Interpretation Comme [facility] Eosinophils # (test code = 711-2) 0.0 thou/uL 0.0-0.7 [facility] count (count/volume) 2023-05-21 05:17:00* Test Item Value Reference Range Interpretation Comme nts Basophils # (test code = 704-7) 0.0 thou/uL 0.0-0.2 [facility] or plasma sodium measurement (moles/volume) 2023-05-21 05:17:00* Test Item Value Reference Range Interpretation Comme nts Sodium Level (test code = 2951-2) 135 mmol/L 136-145 [facility] or plasma potassium measurement (moles/volume) 2023-05-21 05:17:00* Test Item Value Reference Range Interpretation Comme nts Potassium Level (test code = 2823-3) 3.6 mmol/L 3.5-5.1 [facility] or plasma chloride measurement (moles/volume) 2023-05-21 05:17:00* Test Item Value Reference Range Interpretation Comme [facility] Chloride Level (test code = 2075-0) 103 mmol/L 98-107 [facility] or plasma carbon dioxide, total measurement (moles/volume)2023-05-21 05:17:00* Test Item Value Reference Range Interpretation Comme [facility] Carbon Dioxide Level (test c ode = 2027-9) 23 mmol/L 22-29 [facility] or plasma anion [id number] 05:17:00* Test Item Value Reference Range Interpretation Comme [facility] Anion Gap (test code = 42684-8) 13 mmol/L 10-20 [facility] or plasma urea nitrogen measurement (mass/volume)2023-05-21 05:17:00* Test Item Value Reference Range Interpretation Comme [facility] Blood Urea Nitrogen (test co de = 3094-0) 8 mg/dL 8.9-20.6 [facility] or plasma creatinine measurement (mass/volume) 2023-05-21 05:17:00* Test Item Value Reference Range Interpretation Comme [facility] Creatinine (test code = 2160-0) 0.76 mg/dL 0.7-1.3 [facility]1.73 sq M.predicted [Volume Rate/Area] in Serum, Plasma [id number] 05:17:00* Test Item Value Reference Range Interpretation Comme nts Estimated GFR (CKD-EPI 2020) (test code = 95071-7) 127 [facility] in Serum or [id number] 05:17:00* Test Item Value Reference Range Interpretation Comme [facility] Glucose Level (test code = 2345-7) 117 mg/dL 70-105 [facility] or plasma calcium measurement (mass/volume) 2023-05-21 05:17:00* Test Item Value Reference Range Interpretation Comme [facility] Calcium Level (test code = 58925-5) 9.0 mg/dL 7.8-10.44 [facility] or plasma phosphate measurement (mass/volume) 2023-05-21 05:17:00* Test Item Value Reference Range Interpretation Comme [facility] Phosphorus Level (test code = 2777-1) 3.1 mg/dL 2.3-4.7 [facility] or plasma magnesium measurement (mass/volume) 2023-05-21 05:17:00* Test Item Value Reference Range Interpretation Comme [facility] Magnesium Level (test code = 64600-3) 1.8 mg/dL 1.6-2.6 [facility] [#/[facility] in Blood by Automated count 2023-05-21 05:17:00* Test Item Value Reference Range Interpretation Comme [facility] White Blood Count (test code = 6690-2) 17.7 10x3/uL 4.8-10.8 [facility] erythrocytes automated count (number/volume) 2023-05-21 05:17:00* Test Item Value Reference Range Interpretation Comme [facility] Red Blood Count (test code = 789-8) 4.19 mill/uL 4.70-6.10 [facility] hemoglobin measurement (mass/volume)2023-05-21 05:17:00* Test Item Value Reference Range Interpretation Comme [facility] Hemoglobin (test code = 718-7) 12.9 g/dL 14.0-18.0 [facility] whole [id number] 05:17:00* Test Item Value Reference Range Interpretation Comme [facility] Hematocrit (test code = 78421-3) 38.7 % 42.0-52.0 [facility] mean corpuscular volume 2023-05-21 05:17:00* Test Item Value Reference Range Interpretation Comme [facility] Mean Corpuscular Volume (tere t code = 787-2) 92.4 fl 78.0-98.0 [facility] mean corpuscular hemoglobin (mass per erythrocyte)2023-05-21 05:17:00* Test Item Value Reference Range Interpretation Comme [facility] Mean Corpuscular Hemoglobin (test code = 785-6) 30.8 pg 27.0-31.0 [facility] erythrocyte mean corpuscular hemoglobin concentration measurement (mass/fuw8667-97-03 05:17:00* Test Item Value Reference Range Interpretation Comme [facility] Mean Corpuscular Hemoglobin Concent (test code = 786-4) 33.3 g/dL 32.0-36.0 [facility] erythrocyte distribution width ratio 2023-05-21 05:17:00* Test Item Value Reference Range Interpretation Comme [facility] Red Cell Distribution Width (test code = 788-0) 13.3 % 11.5-14.5 [facility] blood platelet count (count/volume) 2023-05-21 05:17:00* Test Item Value Reference Range Interpretation Comme [facility] Platelet Count (test code = 777-3) 163 10x3/uL 130-400 [facility] blood platelet mean aedrgy5462-13-01 05:17:00* Test Item Value Reference Range Interpretation Comme [facility] Mean Platelet Volume (test c ode = 74579-9) 10.7 fL 7.4-10.4 [facility] blood neutrophils/100 rfhurzmkik7431-92-30 05:17:00* Test Item Value Reference Range Interpretation Comme [facility] Neutrophils % (test code = 770-8) 84.7 % 42.0-75.0 [facility] leukocytes in Blood by Automated count 2023-05-21 05:17:00* Test Item Value Reference Range Interpretation Comme [facility] Lymphocytes % (test code = 736-9) 7.5 % 21.0-51.0 [facility] blood monocytes/100 xytnfpugut1826-84-03 05:17:00* Test Item Value Reference Range Interpretation Comme [facility] Monocytes % (test code = 5905-5) 6.9 % 0.0-10.0 [facility] eosinophils/100 cnjqyexsnc3456-47-08 05:17:00* Test Item Value Reference Range Interpretation Comme nts Eosinophils % (test code = 713-8) 0.1 % 0.0-10.0 [facility] basophils/100 nvgwlxtgel4530-22-91 05:17:00* Test Item Value Reference Range Interpretation Comme nts Basophils % (test code = 706-2) 0.2 % 0.0-1.0 [facility] CenterAutom[facility] immature granulocyte count as percentage of total edgbbdyuay2471-39-46 05:17:00* Test Item Value Reference Range Interpretation Comme nts Immature Granulocyte % (Auto ) (test code = 89819-8) 0.6 % 0-5 [facility] neutrophils automated count (number/volume) 2023-05-21 05:17:00* Test Item Value Reference Range Interpretation Comme nts Neutrophils # (test code = 751-8) 15.0 thou/uL 1.40-6.50 [facility] monocytes automated count (number/volume) 2023-05-21 05:17:00* Test Item Value Reference Range Interpretation Comme nts Monocytes # (test code = 742-7) 1.2 thou/uL 0.11-0.59 [facility] eosinophils automated count (count/volume) 2023-05-21 05:17:00* Test Item Value Reference Range Interpretation Comme nts Eosinophils # (test code = 711-2) 0.0 thou/uL 0.0-0.7 [facility] basophil count (count/volume) 2023-05-21 05:17:00* Test Item Value Reference Range Interpretation Comme nts Basophils # (test code = 704-7) 0.0 thou/uL 0.0-0.2 [facility] or plasma sodium measurement (moles/volume) 2023-05-21 05:17:00* Test Item Value Reference Range Interpretation Comme nts Sodium Level (test code = 2951-2) 135 mmol/L 136-145 [facility] or plasma potassium measurement (moles/volume) 2023-05-21 05:17:00* Test Item Value Reference Range Interpretation Comme [facility] Potassium Level (test code = 2823-3) 3.6 mmol/L 3.5-5.1 [facility] or plasma chloride measurement (moles/volume) 2023-05-21 05:17:00* Test Item Value Reference Range Interpretation Comme [facility] Chloride Level (test code = 2075-0) 103 mmol/L 98-107 [facility] or plasma carbon dioxide, total measurement (moles/volume)2023-05-21 05:17:00* Test Item Value Reference Range Interpretation Comme [facility] Carbon Dioxide Level (test c ode = 2027-9) 23 mmol/L 22-29 [facility] or plasma anion [id number] 05:17:00* Test Item Value Reference Range Interpretation Comme [facility] Anion Gap (test code = 21648-5) 13 mmol/L 10-20 [facility] or plasma urea nitrogen measurement (mass/volume)2023-05-21 05:17:00* Test Item Value Reference Range Interpretation Comme [facility] Blood Urea Nitrogen (test co de = 3094-0) 8 mg/dL 8.9-20.6 [facility] or plasma creatinine measurement (mass/volume) 2023-05-21 05:17:00* Test Item Value Reference Range Interpretation Comme [facility] Creatinine (test code = 2160-0) 0.76 mg/dL 0.7-1.3 [facility] filtration rate/1.73 sq M.predicted [Volume Rate/Area] in Serum, Plasma [id number] 05:17:00* Test Item Value Reference Range Interpretation Comme [facility] Estimated GFR (CKD-EPI 2020) (test code = 80156-8) 127 [facility]Gl[facility] [Mass/volume] in Serum or [id number] 05:17:00* Test Item Value Reference Range Interpretation Comme [facility] Glucose Level (test code = 2345-7) 117 mg/dL 70-105 [facility] or plasma calcium measurement (mass/volume) 2023-05-21 05:17:00* Test Item Value Reference Range Interpretation Comme [facility] Calcium Level (test code = 13805-0) 9.0 mg/dL 7.8-10.44 [facility] or plasma phosphate measurement (mass/volume) 2023-05-21 05:17:00* Test Item Value Reference Range Interpretation Comme [facility] Phosphorus Level (test code = 2777-1) 3.1 mg/dL 2.3-4.7 [facility] measurement (mass/volume) 2023-05-21 05:17:00* Test Item Value Reference Range Interpretation Comme [facility] Magnesium Level (test code = 85533-8) 1.8 mg/dL 1.6-2.6 [facility]uk[facility] [#/volume] in Blood by Automated count 2023-05-21 05:17:00* Test Item Value Reference Range Interpretation Comme [facility] White Blood Count (test code = 6690-2) 17.7 10x3/uL 4.8-10.8 [facility] erythrocytes automated count (number/volume) 2023-05-21 05:17:00* Test Item Value Reference Range Interpretation Comme [facility] Red Blood Count (test code = 789-8) 4.19 mill/uL 4.70-6.10 [facility] hemoglobin measurement (mass/volume)2023-05-21 05:17:00* Test Item Value Reference Range Interpretation Comme [facility] Hemoglobin (test code = 718-7) 12.9 g/dL 14.0-18.0 [facility]emat[facility] whole [id number] 05:17:00* Test Item Value Reference Range Interpretation Comme [facility] Hematocrit (test code = 12698-7) 38.7 % 42.0-52.0 [facility] erythrocyte mean corpuscular volume 2023-05-21 05:17:00* Test Item Value Reference Range Interpretation Comme [facility] Mean Corpuscular Volume (tere t code = 787-2) 92.4 fl 78.0-98.0 [facility] mean corpuscular hemoglobin (mass per erythrocyte)2023-05-21 05:17:00* Test Item Value Reference Range Interpretation Comme [facility] Mean Corpuscular Hemoglobin (test code = 785-6) 30.8 pg 27.0-31.0 [facility] mean corpuscular hemoglobin concentration measurement (mass/[id number] 05:17:00* Test Item Value Reference Range Interpretation Comme [facility] Mean Corpuscular Hemoglobin Concent (test code = 786-4) 33.3 g/dL 32.0-36.0 [facility] erythrocyte distribution width ratio 2023-05-21 05:17:00* Test Item Value Reference Range Interpretation Comme [facility] Red Cell Distribution Width (test code = 788-0) 13.3 % 11.5-14.5 [facility] blood platelet count (count/volume) 2023-05-21 05:17:00* Test Item Value Reference Range Interpretation Comme [facility] Platelet Count (test code = 777-3) 163 10x3/uL 130-400 [facility] blood platelet mean [id number] 05:17:00* Test Item Value Reference Range Interpretation Comme [facility] Mean Platelet Volume (test c ode = 53267-7) 10.7 fL 7.4-10.4 [facility]/100 iizwjenitb4286-32-42 05:17:00* Test Item Value Reference Range Interpretation Comme [facility] Neutrophils % (test code = 770-8) 84.7 % 42.0-75.0 [facility] leukocytes in Blood by Automated count 2023-05-21 05:17:00* Test Item Value Reference Range Interpretation Comme [facility] Lymphocytes % (test code = 736-9) 7.5 % 21.0-51.0 [facility] monocytes/100 [id number] 05:17:00* Test Item Value Reference Range Interpretation Comme [facility] Monocytes % (test code = 5905-5) 6.9 % 0.0-10.0 [facility] blood eosinophils/100 zzysaynqur0945-40-10 05:17:00* Test Item Value Reference Range Interpretation Comme [facility] Eosinophils % (test code = 713-8) 0.1 % 0.0-10.0 [facility] basophils/100 gckqptlxlf1672-31-29 05:17:00* Test Item Value Reference Range Interpretation Comme [facility] Basophils % (test code = 706-2) 0.2 % 0.0-1.0 [facility] immature granulocyte count as percentage of total lmfspqponq7139-66-60 05:17:00* Test Item Value Reference Range Interpretation Comme [facility] Immature Granulocyte % (Auto ) (test code = 53479-8) 0.6 % 0-5 [facility] neutrophils automated count (number/volume) 2023-05-21 05:17:00* Test Item Value Reference Range Interpretation Comme [facility] Neutrophils # (test code = 751-8) 15.0 thou/uL 1.40-6.50 [facility] monocytes automated count (number/volume) 2023-05-21 05:17:00* Test Item Value Reference Range Interpretation Comme [facility] Monocytes # (test code = 742-7) 1.2 thou/uL 0.11-0.59 [facility] eosinophils automated count (count/volume) 2023-05-21 05:17:00* Test Item Value Reference Range Interpretation Comme [facility] Eosinophils # (test code = 711-2) 0.0 thou/uL 0.0-0.7 [facility] basophil count (count/volume) 2023-05-21 05:17:00* Test Item Value Reference Range Interpretation Comme [facility] Basophils # (test code = 704-7) 0.0 thou/uL 0.0-0.2 [facility] or plasma sodium measurement (moles/volume) 2023-05-21 05:17:00* Test Item Value Reference Range Interpretation Comme [facility] Sodium Level (test code = 2951-2) 135 mmol/L 136-145 [facility] or plasma potassium measurement (moles/volume) 2023-05-21 05:17:00* Test Item Value Reference Range Interpretation Comme [facility] Potassium Level (test code = 2823-3) 3.6 mmol/L 3.5-5.1 [facility] or plasma chloride measurement (moles/volume) 2023-05-21 05:17:00* Test Item Value Reference Range Interpretation Comme nts Chloride Level (test code = 2075-0) 103 mmol/L 98-107 [facility] or plasma carbon dioxide, total measurement (moles/volume)2023-05-21 05:17:00* Test Item Value Reference Range Interpretation Comme [facility] Carbon Dioxide Level (test c ode = 8-9) 23 mmol/L 22-29 [facility] or plasma anion [id number] 05:17:00* Test Item Value Reference Range Interpretation Comme nts Anion Gap (test code = 36906-6) 13 mmol/L 10-20 [facility] or plasma urea nitrogen measurement (mass/volume)2023-05-21 05:17:00* Test Item Value Reference Range Interpretation Comme [facility] Blood Urea Nitrogen (test co de = 3094-0) 8 mg/dL 8.9-20.6 [facility] or plasma creatinine measurement (mass/volume) 2023-05-21 05:17:00* Test Item Value Reference Range Interpretation Comme [facility] Creatinine (test code = 2160-0) 0.76 mg/dL 0.7-1.3 [facility]omer[facility] filtration rate/1.73 sq M.predicted [Volume Rate/Area] in Serum, Plasma [id number] 05:17:00* Test Item Value Reference Range Interpretation Comme [facility] Estimated GFR (CKD-EPI 2020) (test code = 55458-2) 127 [facility]Glucose [Mass/volume] in Serum or Tyvqgd1754-82-70 05:17:00* Test Item Value Reference Range Interpretation Comme [facility] Glucose Level (test code = 2345-7) 117 mg/dL 70-105 [facility] or plasma calcium measurement (mass/volume) 2023-05-21 05:17:00* Test Item Value Reference Range Interpretation Comme [facility] Calcium Level (test code = 50549-7) 9.0 mg/dL 7.8-10.44 [facility] or plasma phosphate measurement (mass/volume) 2023-05-21 05:17:00* Test Item Value Reference Range Interpretation Comme [facility] Phosphorus Level (test code = 2777-1) 3.1 mg/dL 2.3-4.7 [facility] or plasma magnesium measurement (mass/volume) 2023-05-21 05:17:00* Test Item Value Reference Range Interpretation Comme [facility] Magnesium Level (test code = 05973-3) 1.8 mg/dL 1.6-2.6 [facility]uk[facility] [#/volume] in Blood by Automated count 2023-05-21 05:17:00* Test Item Value Reference Range Interpretation Comme [facility] White Blood Count (test code = 6690-2) 17.7 10x3/uL 4.8-10.8 [facility] erythrocytes automated count (number/volume) 2023-05-21 05:17:00* Test Item Value Reference Range Interpretation Comme [facility] Red Blood Count (test code = 789-8) 4.19 mill/uL 4.70-6.10 [facility] hemoglobin measurement (mass/volume)2023-05-21 05:17:00* Test Item Value Reference Range Interpretation Comme [facility] Hemoglobin (test code = 718-7) 12.9 g/dL 14.0-18.0 [facility] whole [id number] 05:17:00* Test Item Value Reference Range Interpretation Comme [facility] Hematocrit (test code = 28958-5) 38.7 % 42.0-52.0 [facility] mean corpuscular volume 2023-05-21 05:17:00* Test Item Value Reference Range Interpretation Comme [facility] Mean Corpuscular Volume (tere t code = 787-2) 92.4 fl 78.0-98.0 [facility] mean corpuscular hemoglobin (mass per erythrocyte)2023-05-21 05:17:00* Test Item Value Reference Range Interpretation Comme [facility] Mean Corpuscular Hemoglobin (test code = 785-6) 30.8 pg 27.0-31.0 [facility] mean corpuscular hemoglobin concentration measurement (mass/uxr8954-08-93 05:17:00* Test Item Value Reference Range Interpretation Comme [facility] Mean Corpuscular Hemoglobin Concent (test code = 786-4) 33.3 g/dL 32.0-36.0 [facility] distribution width ratio 2023-05-21 05:17:00* Test Item Value Reference Range Interpretation Comme [facility] Red Cell Distribution Width (test code = 788-0) 13.3 % 11.5-14.5 [facility] blood platelet count (count/volume) 2023-05-21 05:17:00* Test Item Value Reference Range Interpretation Comme [facility] Platelet Count (test code = 777-3) 163 10x3/uL 130-400 [facility] blood platelet mean [id number] 05:17:00* Test Item Value Reference Range Interpretation Comme [facility] Mean Platelet Volume (test c ode = 12527-2) 10.7 fL 7.4-10.4 [facility] blood neutrophils/100 osuahojxfc6751-65-46 05:17:00* Test Item Value Reference Range Interpretation Comme [facility] Neutrophils % (test code = 770-8) 84.7 % 42.0-75.0 [facility] leukocytes in Blood by Automated count 2023-05-21 05:17:00* Test Item Value [facility] % (test code = 736-9) 7.5 % 21.0-51.0 [facility] blood monocytes/100 wsvnizuoun4943-90-27 05:17:00* Test Item Value Reference [facility] Monocytes % (test code = 5905-5) 6.9 % 0.0-10.0 [facility] blood eosinophils/100 nlzdtmqqve6801-33-31 05:17:00* Test Item Value Reference Range Interpretation Comme [facility] Eosinophils % (test code = 713-8) 0.1 % 0.0-10.0 [facility] blood basophils/100 iysrnxgwtx6260-57-99 05:17:00* Test Item Value Reference Range Interpretation Comme [facility] Basophils % (test code = 706-2) 0.2 % 0.0-1.0 [facility] blood immature granulocyte count as percentage of total rhtldbgwtn1563-11-81 05:17:00* Test Item Value Reference Range Interpretation Comme nts Immature Granulocyte % (Auto ) (test code = 38661-8) 0.6 % 0-5 [facility] neutrophils automated count (number/volume) 2023-05-21 05:17:00* Test Item Value Reference Range Interpretation Comme nts Neutrophils # (test code = 751-8) 15.0 thou/uL 1.40-6.50 [facility] monocytes automated count (number/volume) 2023-05-21 05:17:00* Test Item Value Reference Range Interpretation Comme nts Monocytes # (test code = 742-7) 1.2 thou/uL 0.11-0.59 [facility] eosinophils automated count (count/volume) 2023-05-21 05:17:00* Test Item Value Reference Range Interpretation Comme nts Eosinophils # (test code = 711-2) 0.0 thou/uL 0.0-0.7 [facility] blood basophil count (count/volume) 2023-05-21 05:17:00* Test Item Value Reference Range Interpretation Comme nts Basophils # (test code = 704-7) 0.0 thou/uL 0.0-0.2 [facility] or plasma sodium measurement (moles/volume) 2023-05-21 05:17:00* Test Item Value Reference Range Interpretation Comme nts Sodium Level (test code = 2951-2) 135 mmol/L 136-145 [facility] or plasma potassium measurement (moles/volume) 2023-05-21 05:17:00* Test Item Value Reference Range Interpretation Comme nts Potassium Level (test code = 2823-3) 3.6 mmol/L 3.5-5.1 [facility] or plasma chloride measurement (moles/volume) 2023-05-21 05:17:00* Test Item Value Reference Range Interpretation Comme nts Chloride Level (test code = 2075-0) 103 mmol/L 98-107 [facility] or plasma carbon dioxide, total measurement (moles/volume)2023-05-21 05:17:00* Test Item Value Reference Range Interpretation Comme nts Carbon Dioxide Level (test c ode = 2028-05) 23 mmol/L 22-29 [facility] or plasma anion [id number] 05:17:00* Test Item Value Reference Range Interpretation Comme nts Anion Gap (test code = 31179-1) 13 mmol/L 10-20 [facility] or plasma urea nitrogen measurement (mass/volume)2023-05-21 05:17:00* Test Item Value Reference Range Interpretation Comme [facility] Blood Urea Nitrogen (test co de = 3094-0) 8 mg/dL 8.9-20.6 [facility] or plasma creatinine measurement (mass/volume) 2023-05-21 05:17:00* Test Item Value Reference Range Interpretation Comme [facility] Creatinine (test code = 2160-0) 0.76 mg/dL 0.7-1.3 [facility]1.73 sq M.predicted [Volume Rate/Area] in Serum, Plasma [id number] 05:17:00* Test Item Value Reference Range Interpretation Comme [facility] Estimated GFR (CKD-EPI 2020) (test code = 82229-5) 127 [facility]] in Serum or [id number] 05:17:00* Test Item Value Reference Range Interpretation Comme [facility] Glucose Level (test code = 2345-7) 117 mg/dL 70-105 [facility] or plasma calcium measurement (mass/volume) 2023-05-21 05:17:00* Test Item Value Reference Range Interpretation Comme [facility] Calcium Level (test code = 51105-6) 9.0 mg/dL 7.8-10.44 [facility] or plasma phosphate measurement (mass/volume) 2023-05-21 05:17:00* Test Item Value Reference Range Interpretation Comme [facility] Phosphorus Level (test code = 2777-1) 3.1 mg/dL 2.3-4.7 [facility] or plasma magnesium measurement (mass/volume) 2023-05-21 05:17:00* Test Item Value Reference Range Interpretation Comme [facility] Magnesium Level (test code = 17184-0) 1.8 mg/dL 1.6-2.6 [facility] [#/[facility] in Blood by Automated count 2023-05-21 05:17:00* Test Item Value Reference Range Interpretation Comme [facility] White Blood Count (test code = 6690-2) 17.7 10x3/uL 4.8-10.8 [facility] erythrocytes automated count (number/volume) 2023-05-21 05:17:00* Test Item Value Reference Range Interpretation Comme [facility] Red Blood Count (test code = 789-8) 4.19 mill/uL 4.70-6.10 [facility] hemoglobin measurement (mass/volume)2023-05-21 05:17:00* Test Item Value Reference Range Interpretation Comme [facility] Hemoglobin (test code = 718-7) 12.9 g/dL 14.0-18.0 [facility] [id number] 05:17:00* Test Item Value Reference Range Interpretation Comme [facility] Hematocrit (test code = 97745-6) 38.7 % 42.0-52.0 [facility] corpuscular volume 2023-05-21 05:17:00* Test Item Value Reference Range Interpretation Comme [facility] Mean Corpuscular Volume (tere t code = 787-2) 92.4 fl 78.0-98.0 [facility] mean corpuscular hemoglobin (mass per erythrocyte)2023-05-21 05:17:00* Test Item Value Reference Range Interpretation Comme [facility] Mean Corpuscular Hemoglobin (test code = 785-6) 30.8 pg 27.0-31.0 [facility] mean corpuscular hemoglobin concentration measurement (mass/[id number] 05:17:00* Test Item Value Reference Range Interpretation Comme [facility] Mean Corpuscular Hemoglobin Concent (test code = 786-4) 33.3 g/dL 32.0-36.0 [facility] erythrocyte distribution width ratio 2023-05-21 05:17:00* Test Item Value Reference Range Interpretation Comme [facility] Red Cell Distribution Width (test code = 788-0) 13.3 % 11.5-14.5 [facility] blood platelet count (count/volume) 2023-05-21 05:17:00* Test Item Value Reference Range Interpretation Comme [facility] Platelet Count (test code = 777-3) 163 10x3/uL 130-400 [facility] mean [id number] 05:17:00* Test Item Value Reference Range Interpretation Comme nts Mean Platelet Volume (test c ode = 27080-0) 10.7 fL 7.4-10.4 [facility] neutrophils/100 [id number] 05:17:00* Test Item Value Reference Range Interpretation Comme [facility] Neutrophils % (test code = 770-8) 84.7 % 42.0-75.0 [facility]ymph[facility]100 leukocytes in Blood by Automated count 2023-05-21 05:17:00* Test Item Value Reference Range Interpretation Comme [facility] Lymphocytes % (test code = 736-9) 7.5 % 21.0-51.0 [facility] monocytes/100 [id number] 05:17:00* Test Item Value Reference Range Interpretation Comme [facility] Monocytes % (test code = 5905-5) 6.9 % 0.0-10.0 [facility] eosinophils/100 qbgyoqqhdl1401-39-86 05:17:00* Test Item Value Reference Range Interpretation Comme [facility] Eosinophils % (test code = 713-8) 0.1 % 0.0-10.0 [facility] basophils/100 tmxccswzva1628-58-27 05:17:00* Test Item Value Reference Range Interpretation Comme [facility] Basophils % (test code = 706-2) 0.2 % 0.0-1.0 [facility] immature granulocyte count as percentage of total [id number] 05:17:00* Test Item Value Reference Range Interpretation Comme [facility] Immature Granulocyte % (Auto ) (test code = 79261-4) 0.6 % 0-5 [facility] neutrophils automated count (number/volume) 2023-05-21 05:17:00* Test Item Value Reference Range Interpretation Comme [facility] Neutrophils # (test code = 751-8) 15.0 thou/uL 1.40-6.50 [facility] monocytes automated count (number/volume) 2023-05-21 05:17:00* Test Item Value Reference Range Interpretation Comme [facility] Monocytes # (test code = 742-7) 1.2 thou/uL 0.11-0.59 [facility] eosinophils automated count (count/volume) 2023-05-21 05:17:00* Test Item Value Reference Range Interpretation Comme [facility] Eosinophils # (test code = 711-2) 0.0 thou/uL 0.0-0.7 [facility] basophil count (count/volume) 2023-05-21 05:17:00* Test Item Value Reference Range Interpretation Comme [facility] Basophils # (test code = 704-7) 0.0 thou/uL 0.0-0.2 [facility] or plasma sodium measurement (moles/volume) 2023-05-21 05:17:00* Test Item Value Reference Range Interpretation Comme [facility] Sodium Level (test code = 2951-2) 135 mmol/L 136-145 [facility] or plasma potassium measurement (moles/volume) 2023-05-21 05:17:00* Test Item Value Reference Range Interpretation Comme [facility] Potassium Level (test code = 2823-3) 3.6 mmol/L 3.5-5.1 [facility] or plasma chloride measurement (moles/volume) 2023-05-21 05:17:00* Test Item Value Reference Range Interpretation Comme [facility] Chloride Level (test code = 2075-0) 103 mmol/L 98-107 [facility] or plasma carbon dioxide, total measurement (moles/volume)2023-05-21 05:17:00* Test Item Value Reference Range Interpretation Comme [facility] Carbon Dioxide Level (test c ode = 2027-9) 23 mmol/L 22-29 [facility] or plasma anion [id number] 05:17:00* Test Item Value Reference Range Interpretation Comme [facility] Anion Gap (test code = 86210-3) 13 mmol/L 10-20 [facility] or plasma urea nitrogen measurement (mass/volume)2023-05-21 05:17:00* Test Item Value Reference Range Interpretation Comme [facility] Blood Urea Nitrogen (test co de = 3094-0) 8 mg/dL 8.9-20.6 [facility] or plasma creatinine measurement (mass/volume) 2023-05-21 05:17:00* Test Item Value Reference Range Interpretation Comme [facility] Creatinine (test code = 2160-0) 0.76 mg/dL 0.7-1.3 [facility]Glomer[facility] rate/1.73 sq M.predicted [Volume Rate/Area] in Serum, Plasma [id number] 05:17:00* Test Item Value Reference Range Interpretation Comme [facility] Estimated GFR (CKD-EPI 2020) (test code = 86675-6) 127 [facility] CenterGlucose [Mass/volume] in Serum or [id number] 05:17:00* Test Item Value Reference Range Interpretation Comme [facility] Glucose Level (test code = 2345-7) 117 mg/dL 70-105 [facility] or plasma calcium measurement (mass/volume) 2023-05-21 05:17:00* Test Item Value Reference Range Interpretation Comme [facility] Calcium Level (test code = 95622-7) 9.0 mg/dL 7.8-10.44 [facility] or plasma phosphate measurement (mass/volume) 2023-05-21 05:17:00* Test Item Value Reference Range Interpretation Comme [facility] Phosphorus Level (test code = 2777-1) 3.1 mg/dL 2.3-4.7 [facility] or plasma magnesium measurement (mass/volume) 2023-05-21 05:17:00* Test Item Value Reference Range Interpretation Comme [facility] Magnesium Level (test code = 28813-6) 1.8 mg/dL 1.6-2.6 [facility] [#/volume] in Blood by Automated count 2023-05-21 05:17:00* Test Item Value Reference Range Interpretation Comme [facility] White Blood Count (test code = 6690-2) 17.7 10x3/uL 4.8-10.8 [facility] erythrocytes automated count (number/volume) 2023-05-21 05:17:00* Test Item Value Reference Range Interpretation Comme [facility] Red Blood Count (test code = 789-8) 4.19 mill/uL 4.70-6.10 [facility] hemoglobin measurement (mass/volume)2023-05-21 05:17:00* Test Item Value Reference Range Interpretation Comme [facility] Hemoglobin (test code = 718-7) 12.9 g/dL 14.0-18.0 [facility]ematocrit, whole [id number] 05:17:00* Test Item Value Reference Range Interpretation Comme [facility] Hematocrit (test code = 06735-5) 38.7 % 42.0-52.0 [facility] mean corpuscular volume 2023-05-21 05:17:00* Test Item Value Reference Range Interpretation Comme [facility] Mean Corpuscular Volume (tere t code = 787-2) 92.4 fl 78.0-98.0 [facility] erythrocyte mean corpuscular hemoglobin (mass per erythrocyte)2023-05-21 05:17:00* Test Item Value Reference Range Interpretation Comme [facility] Mean Corpuscular Hemoglobin (test code = 785-6) 30.8 pg 27.0-31.0 [facility] erythrocyte mean corpuscular hemoglobin concentration measurement (mass/[id number] 05:17:00* Test Item Value Reference Range Interpretation Comme [facility] Mean Corpuscular Hemoglobin Concent (test code = 786-4) 33.3 g/dL 32.0-36.0 [facility] erythrocyte distribution width ratio 2023-05-21 05:17:00* Test Item Value Reference Range Interpretation Comme [facility] Red Cell Distribution Width (test code = 788-0) 13.3 % 11.5-14.5 [facility] blood platelet count (count/volume) 2023-05-21 05:17:00* Test Item Value Reference Range Interpretation Comme [facility] Platelet Count (test code = 777-3) 163 10x3/uL 130-400 [facility] blood platelet mean [id number] 05:17:00* Test Item Value Reference Range Interpretation Comme [facility] Mean Platelet Volume (test c ode = 23734-9) 10.7 fL 7.4-10.4 [facility] neutrophils/100 [id number] 05:17:00* Test Item Value Reference Range Interpretation Comme [facility] Neutrophils % (test code = 770-8) 84.7 % 42.0-75.0 [facility]Lymph[facility]/100 leukocytes in Blood by Automated count 2023-05-21 05:17:00* Test Item Value Reference Range Interpretation Comme [facility] Lymphocytes % (test code = 736-9) 7.5 % 21.0-51.0 [facility] monocytes/100 [id number] 05:17:00* Test Item Value Reference Range Interpretation Comme [facility] Monocytes % (test code = 5905-5) 6.9 % 0.0-10.0 [facility] eosinophils/100 [id number] 05:17:00* Test Item Value Reference Range Interpretation Comme [facility] Eosinophils % (test code = 713-8) 0.1 % 0.0-10.0 [facility] basophils/100 qyebqfygxu5724-70-26 05:17:00* Test Item Value Reference Range Interpretation Comme [facility] Basophils % (test code = 706-2) 0.2 % 0.0-1.0 [facility] blood immature granulocyte count as percentage of total wcejtrpxeo1731-19-82 05:17:00* Test Item Value Reference Range Interpretation Comme [facility] Immature Granulocyte % (Auto ) (test code = 21455-8) 0.6 % 0-5 [facility] neutrophils automated count (number/volume) 2023-05-21 05:17:00* Test Item Value Reference Range Interpretation Comme [facility] Neutrophils # (test code = 751-8) 15.0 thou/uL 1.40-6.50 [facility] monocytes automated count (number/volume) 2023-05-21 05:17:00* Test Item Value Reference Range Interpretation Comme nts Monocytes # (test code = 742-7) 1.2 thou/uL 0.11-0.59 [facility] eosinophils automated count (count/volume) 2023-05-21 05:17:00* Test Item Value Reference Range Interpretation Comme nts Eosinophils # (test code = 711-2) 0.0 thou/uL 0.0-0.7 [facility] basophil count (count/volume) 2023-05-21 05:17:00* Test Item Value Reference Range Interpretation Comme nts Basophils # (test code = 704-7) 0.0 thou/uL 0.0-0.2 [facility] or plasma sodium measurement (moles/volume) 2023-05-21 05:17:00* Test Item Value Reference Range Interpretation Comme [facility] Sodium Level (test code = 2951-2) 135 mmol/L 136-145 [facility] or plasma potassium measurement (moles/volume) 2023-05-21 05:17:00* Test Item Value Reference Range Interpretation Comme [facility] Potassium Level (test code = 2823-3) 3.6 mmol/L 3.5-5.1 [facility] or plasma chloride measurement (moles/volume) 2023-05-21 05:17:00* Test Item Value Reference Range Interpretation Comme [facility] Chloride Level (test code = 2075-0) 103 mmol/L 98-107 [facility] or plasma carbon dioxide, total measurement (moles/volume)2023-05-21 05:17:00* Test Item Value Reference Range Interpretation Comme [facility] Carbon Dioxide Level (test c ode = 8-9) 23 mmol/L 22-29 [facility] or plasma anion [id number] 05:17:00* Test Item Value Reference Range Interpretation Comme nts Anion Gap (test code = 33107-1) 13 mmol/L 10-20 [facility] or plasma urea nitrogen measurement (mass/volume)2023-05-21 05:17:00* Test Item Value Reference Range Interpretation Comme nts Blood Urea Nitrogen (test co de = 3094-0) 8 mg/dL 8.9-20.6 [facility] or plasma creatinine measurement (mass/volume) 2023-05-21 05:17:00* Test Item Value Reference Range Interpretation Comme nts Creatinine (test code = 2160-0) 0.76 mg/dL 0.7-1.3 [facility]1.[facility] sq M.predicted [Volume Rate/Area] in Serum, Plasma [id number] 05:17:00* Test Item Value Reference Range Interpretation Comme [facility] Estimated GFR (CKD-EPI 2020) (test code = 32774-4) 127 [facility]Gl[facility] [Mass/volume] in Serum or [id number] 05:17:00* Test Item Value Reference Range Interpretation Comme [facility] Glucose Level (test code = 2345-7) 117 mg/dL 70-105 [facility] or plasma calcium measurement (mass/volume) 2023-05-21 05:17:00* Test Item Value Reference Range Interpretation Comme [facility] Calcium Level (test code = 83716-2) 9.0 mg/dL 7.8-10.44 [facility] or plasma phosphate measurement (mass/volume) 2023-05-21 05:17:00* Test Item Value Reference Range Interpretation Comme [facility] Phosphorus Level (test code = 2777-1) 3.1 mg/dL 2.3-4.7 [facility] or plasma magnesium measurement (mass/volume) 2023-05-21 05:17:00* Test Item Value Reference Range Interpretation Comme [facility] Magnesium Level (test code = 41638-0) 1.8 mg/dL 1.6-2.6 [facility]uk[facility] [#/volume] in Blood by Automated count 2023-05-21 05:17:00* Test Item Value Reference Range Interpretation Comme [facility] White Blood Count (test code = 6690-2) 17.7 10x3/uL 4.8-10.8 [facility] erythrocytes automated count (number/volume) 2023-05-21 05:17:00* Test Item Value Reference Range Interpretation Comme [facility] Red Blood Count (test code = 789-8) 4.19 mill/uL 4.70-6.10 [facility] hemoglobin measurement (mass/volume)2023-05-21 05:17:00* Test Item Value Reference Range Interpretation Comme [facility] Hemoglobin (test code = 718-7) 12.9 g/dL 14.0-18.0 [facility]emat[facility], whole [id number] 05:17:00* Test Item Value Reference Range Interpretation Comme [facility] Hematocrit (test code = 24663-7) 38.7 % 42.0-52.0 [facility] erythrocyte mean corpuscular volume 2023-05-21 05:17:00* Test Item Value Reference Range Interpretation Comme [facility] Mean Corpuscular Volume (tere t code = 787-2) 92.4 fl 78.0-98.0 [facility] erythrocyte mean corpuscular hemoglobin (mass per erythrocyte)2023-05-21 05:17:00* Test Item Value Reference Range Interpretation Comme [facility] Mean Corpuscular Hemoglobin (test code = 785-6) 30.8 pg 27.0-31.0 [facility] erythrocyte mean corpuscular hemoglobin concentration measurement (mass/qip0670-27-19 05:17:00* Test Item Value Reference Range Interpretation Comme [facility] Mean Corpuscular Hemoglobin Concent (test code = 786-4) 33.3 g/dL 32.0-36.0 [facility] erythrocyte distribution width ratio 2023-05-21 05:17:00* Test Item Value Reference Range Interpretation Comme [facility] Red Cell Distribution Width (test code = 788-0) 13.3 % 11.5-14.5 [facility] blood platelet count (count/volume) 2023-05-21 05:17:00* Test Item Value Reference Range Interpretation Comme [facility] Platelet Count (test code = 777-3) 163 10x3/uL 130-400 [facility] blood platelet mean [id number] 05:17:00* Test Item Value Reference Range Interpretation Comme [facility] Mean Platelet Volume (test c ode = 24867-0) 10.7 fL 7.4-10.4 [facility] blood neutrophils/100 gdmapqlsyv5838-12-20 05:17:00* Test Item Value Reference Range Interpretation Comme [facility] Neutrophils % (test code = 770-8) 84.7 % 42.0-75.0 [facility] leukocytes in Blood by Automated count 2023-05-21 05:17:00* Test Item Value Reference Range Interpretation Comme [facility] Lymphocytes % (test code = 736-9) 7.5 % 21.0-51.0 [facility] monocytes/100 zdcbigoepq9877-23-17 05:17:00* Test Item Value Reference Range Interpretation Comme nts Monocytes % (test code = 5905-5) 6.9 % 0.0-10.0 [facility] eosinophils/100 bnicofvafj4304-35-51 05:17:00* Test Item Value Reference Range Interpretation Comme nts Eosinophils % (test code = 713-8) 0.1 % 0.0-10.0 [facility] basophils/100 hezmgdekjo0038-38-12 05:17:00* Test Item Value Reference Range Interpretation Comme nts Basophils % (test code = 706-2) 0.2 % 0.0-1.0 [facility] immature granulocyte count as percentage of total peqepwajza8255-68-47 05:17:00* Test Item Value Reference Range Interpretation Comme nts Immature Granulocyte % (Auto ) (test code = 04569-9) 0.6 % 0-5 [facility] neutrophils automated count (number/volume) 2023-05-21 05:17:00* Test Item Value Reference Range Interpretation Comme [facility] Neutrophils # (test code = 751-8) 15.0 thou/uL 1.40-6.50 [facility] monocytes automated count (number/volume) 2023-05-21 05:17:00* Test Item Value Reference Range Interpretation Comme nts Monocytes # (test code = 742-7) 1.2 thou/uL 0.11-0.59 [facility] count (count/volume) 2023-05-21 05:17:00* Test Item Value Reference Range Interpretation Comme nts Eosinophils # (test code = 711-2) 0.0 thou/uL 0.0-0.7 [facility] basophil count (count/volume) 2023-05-21 05:17:00* Test Item Value Reference Range Interpretation Comme nts Basophils # (test code = 704-7) 0.0 thou/uL 0.0-0.2 [facility] or plasma sodium measurement (moles/volume) 2023-05-21 05:17:00* Test Item Value Reference Range Interpretation Comme [facility] Sodium Level (test code = 2951-2) 135 mmol/L 136-145 [facility] or plasma potassium measurement (moles/volume) 2023-05-21 05:17:00* Test Item Value Reference Range Interpretation Comme [facility] Potassium Level (test code = 2823-3) 3.6 mmol/L 3.5-5.1 [facility] or plasma chloride measurement (moles/volume) 2023-05-21 05:17:00* Test Item Value Reference Range Interpretation Comme [facility] Chloride Level (test code = 2075-0) 103 mmol/L 98-107 [facility] or plasma carbon dioxide, total measurement (moles/volume)2023-05-21 05:17:00* Test Item Value Reference Range Interpretation Comme [facility] Carbon Dioxide Level (test c ode = 8-9) 23 mmol/L 22-29 [facility] or plasma anion [id number] 05:17:00* Test Item Value Reference Range Interpretation Comme [facility] Anion Gap (test code = 07180-0) 13 mmol/L 10-20 [facility] or plasma urea nitrogen measurement (mass/volume)2023-05-21 05:17:00* Test Item Value Reference Range Interpretation Comme [facility] Blood Urea Nitrogen (test co de = 3094-0) 8 mg/dL 8.9-20.6 [facility] or plasma creatinine measurement (mass/volume) 2023-05-21 05:17:00* Test Item Value Reference Range Interpretation Comme [facility] Creatinine (test code = 2160-0) 0.76 mg/dL 0.7-1.3 [facility]Glomer[facility] rate/1.73 sq M.predicted [Volume Rate/Area] in Serum, Plasma [id number] 05:17:00* Test Item Value Reference Range Interpretation Comme [facility] Estimated GFR (CKD-EPI 2020) (test code = 24242-9) 127 [facility]Gl[facility] [Mass/volume] in Serum or [id number] 05:17:00* Test Item Value Reference Range Interpretation Comme [facility] Glucose Level (test code = 2345-7) 117 mg/dL 70-105 [facility] or plasma calcium measurement (mass/volume) 2023-05-21 05:17:00* Test Item Value Reference Range Interpretation Comme [facility] Calcium Level (test code = 45527-7) 9.0 mg/dL 7.8-10.44 [facility] or plasma phosphate measurement (mass/volume) 2023-05-21 05:17:00* Test Item Value Reference Range Interpretation Comme [facility] Phosphorus Level (test code = 2777-1) 3.1 mg/dL 2.3-4.7 [facility] or plasma magnesium measurement (mass/volume) 2023-05-21 05:17:00* Test Item Value Reference Range Interpretation Comme [facility] Magnesium Level (test code = 11164-2) 1.8 mg/dL 1.6-2.6 [facility] Blood by Automated count 2023-05-21 05:17:00* Test Item Value Reference Range Interpretation Comme [facility] White Blood Count (test code = 6690-2) 17.7 10x3/uL 4.8-10.8 [facility] erythrocytes automated count (number/volume) 2023-05-21 05:17:00* Test Item Value Reference Range Interpretation Comme [facility] Red Blood Count (test code = 789-8) 4.19 mill/uL 4.70-6.10 [facility] hemoglobin measurement (mass/volume)2023-05-21 05:17:00* Test Item Value Reference Range Interpretation Comme [facility] Hemoglobin (test code = 718-7) 12.9 g/dL 14.0-18.0 [facility], [facility] [id number] 05:17:00* Test Item Value Reference Range Interpretation Comme [facility] Hematocrit (test code = 44969-5) 38.7 % 42.0-52.0 [facility] erythrocyte mean corpuscular volume 2023-05-21 05:17:00* Test Item Value Reference Range Interpretation Comme [facility] Mean Corpuscular Volume (tere t code = 787-2) 92.4 fl 78.0-98.0 [facility] erythrocyte mean corpuscular hemoglobin (mass per erythrocyte)2023-05-21 05:17:00* Test Item Value Reference Range Interpretation Comme [facility] Mean Corpuscular Hemoglobin (test code = 785-6) 30.8 pg 27.0-31.0 [facility] erythrocyte mean corpuscular hemoglobin concentration measurement (mass/[id number] 05:17:00* Test Item Value Reference Range Interpretation Comme [facility] Mean Corpuscular Hemoglobin Concent (test code = 786-4) 33.3 g/dL 32.0-36.0 [facility] erythrocyte distribution width ratio 2023-05-21 05:17:00* Test Item Value Reference Range Interpretation Comme [facility] Red Cell Distribution Width (test code = 788-0) 13.3 % 11.5-14.5 [facility] blood platelet count (count/volume) 2023-05-21 05:17:00* Test [facility] Plate[facility] Count (test code = 777-3) 163 10x3/uL 130-400 [facility] blood platelet mean [id number] 05:17:00* Test Item Value Reference Range Interpretation Comme [facility] Mean Platelet Volume (test c ode = 51963-3) 10.7 fL 7.4-10.4 [facility] blood neutrophils/100 ztibjwacpa2100-20-67 05:17:00* Test Item Value Reference Range Interpretation Comme [facility] Neutrophils % (test code = 770-8) 84.7 % 42.0-75.0 [facility] leukocytes in Blood by Automated count 2023-05-21 05:17:00* Test Item Value Reference Range Interpretation Comme [facility] Lymphocytes % (test code = 736-9) 7.5 % 21.0-51.0 [facility] blood monocytes/100 pakbzpxrjr2485-23-50 05:17:00* Test Item Value Reference Range Interpretation Comme [facility] Monocytes % (test code = 5905-5) 6.9 % 0.0-10.0 [facility]/100 webcplyhes7166-43-89 05:17:00* Test Item Value Reference Range Interpretation Comme [facility] Eosinophils % (test code = 713-8) 0.1 % 0.0-10.0 [facility] basophils/100 [id number] 05:17:00* Test Item Value Reference Range Interpretation Comme [facility] Basophils % (test code = 706-2) 0.2 % 0.0-1.0 [facility] immature granulocyte count as percentage of total [id number] 05:17:00* Test Item Value Reference Range Interpretation Comme [facility] Immature Granulocyte % (Auto ) (test code = 34281-2) 0.6 % 0-5 [facility] neutrophils automated count (number/volume) 2023-05-21 05:17:00* Test Item Value Reference Range Interpretation Comme [facility] Neutrophils # (test code = 751-8) 15.0 thou/uL 1.40-6.50 [facility] monocytes automated count (number/volume) 2023-05-21 05:17:00* Test Item Value Reference Range Interpretation Comme [facility] Monocytes # (test code = 742-7) 1.2 thou/uL 0.11-0.59 [facility] eosinophils automated count (count/volume) 2023-05-21 05:17:00* Test Item Value Reference Range Interpretation Comme [facility] Eosinophils # (test code = 711-2) 0.0 thou/uL 0.0-0.7 [facility] basophil count (count/volume) 2023-05-21 05:17:00* Test Item Value Reference Range Interpretation Comme [facility] Basophils # (test code = 704-7) 0.0 thou/uL 0.0-0.2 [facility] or plasma sodium measurement (moles/volume) 2023-05-21 05:17:00* Test Item Value Reference Range Interpretation Comme [facility] Sodium Level (test code = 2951-2) 135 mmol/L 136-145 [facility] or plasma potassium measurement (moles/volume) 2023-05-21 05:17:00* Test Item Value Reference Range Interpretation Comme [facility] Potassium Level (test code = 2823-3) 3.6 mmol/L 3.5-5.1 [facility] or plasma chloride measurement (moles/volume) 2023-05-21 05:17:00* Test Item Value Reference Range Interpretation Comme nts Chloride Level (test code = 2075-0) 103 mmol/L 98-107 [facility] or plasma carbon dioxide, total measurement (moles/volume)2023-05-21 05:17:00* Test Item Value Reference Range Interpretation Comme [facility] Carbon Dioxide Level (test c ode = 2027-9) 23 mmol/L 22-29 [facility] or plasma anion [id number] 05:17:00* Test Item Value Reference Range Interpretation Comme [facility] Anion Gap (test code = 26968-3) 13 mmol/L 10-20 [facility] or plasma urea nitrogen measurement (mass/volume)2023-05-21 05:17:00* Test Item Value Reference Range Interpretation Comme [facility] Blood Urea Nitrogen (test co de = 3094-0) 8 mg/dL 8.9-20.6 [facility] or plasma creatinine measurement (mass/volume) 2023-05-21 05:17:00* Test Item Value Reference Range Interpretation Comme [facility] Creatinine (test code = 2160-0) 0.76 mg/dL 0.7-1.3 [facility] CenterGlomerular filtration rate/1.73 sq M.predicted [Volume Rate/Area] in Serum, Plasma [id number] 05:17:00* Test Item Value Reference Range Interpretation Comme [facility] Estimated GFR (CKD-EPI 2020) (test code = 27434-9) 127 [facility] CenterGlucose [Mass/volume] in Serum or [id number] 05:17:00* Test Item Value Reference Range Interpretation Comme [facility] Glucose Level (test code = 2345-7) 117 mg/dL 70-105 [facility] or plasma calcium measurement (mass/volume) 2023-05-21 05:17:00* Test Item Value Reference Range Interpretation Comme [facility] Calcium Level (test code = 90529-9) 9.0 mg/dL 7.8-10.44 [facility] phosphate measurement (mass/volume) 2023-05-21 05:17:00* Test Item Value Reference Range Interpretation Comme [facility] Phosphorus Level (test code = 2777-1) 3.1 mg/dL 2.3-4.7 [facility] magnesium measurement (mass/volume) 2023-05-21 05:17:00* Test Item Value Reference Range Interpretation Comme [facility] Magnesium Level (test code = 95206-8) 1.8 mg/dL 1.6-2.6 [facility]uk[facility] [#/volume] in Blood by Automated count 2023-05-21 05:17:00* Test Item Value Reference Range Interpretation Comme [facility] White Blood Count (test code = 6690-2) 17.7 10x3/uL 4.8-10.8 [facility] erythrocytes automated count (number/volume) 2023-05-21 05:17:00* Test Item Value Reference Range Interpretation Comme [facility] Red Blood Count (test code = 789-8) 4.19 mill/uL 4.70-6.10 [facility] hemoglobin measurement (mass/volume)2023-05-21 05:17:00* Test Item Value Reference Range Interpretation Comme [facility] Hemoglobin (test code = 718-7) 12.9 g/dL 14.0-18.0 [facility]ematoc[facility], whole [id number] 05:17:00* Test Item Value Reference Range Interpretation Comme [facility] Hematocrit (test code = 30809-0) 38.7 % 42.0-52.0 [facility] mean corpuscular volume 2023-05-21 05:17:00* Test Item Value Reference Range Interpretation Comme [facility] Mean Corpuscular Volume (tere t code = 787-2) 92.4 fl 78.0-98.0 [facility] mean corpuscular hemoglobin (mass per erythrocyte)2023-05-21 05:17:00* Test Item Value Reference Range Interpretation Comme [facility] Mean Corpuscular Hemoglobin (test code = 785-6) 30.8 pg 27.0-31.0 [facility] erythrocyte mean corpuscular hemoglobin concentration measurement (mass/fgw8936-25-09 05:17:00* Test Item Value Reference Range Interpretation Comme [facility] Mean Corpuscular Hemoglobin Concent (test code = 786-4) 33.3 g/dL 32.0-36.0 [facility] erythrocyte distribution width ratio 2023-05-21 05:17:00* Test Item Value Reference Range Interpretation Comme [facility] Red Cell Distribution Width (test code = 788-0) 13.3 % 11.5-14.5 [facility] blood platelet count (count/volume) 2023-05-21 05:17:00* Test Item Value Reference Range Interpretation Comme [facility] Platelet Count (test code = 777-3) 163 10x3/uL 130-400 [facility] blood platelet mean [id number] 05:17:00* Test Item Value Reference Range Interpretation Comme [facility] Mean Platelet Volume (test c ode = 99280-2) 10.7 fL 7.4-10.4 [facility] blood neutrophils/100 xvznswalun6494-79-44 05:17:00* Test Item Value Reference Range Interpretation Comme [facility] Neutrophils % (test code = 770-8) 84.7 % 42.0-75.0 [facility]mph[facility] leukocytes in Blood by Automated count 2023-05-21 05:17:00* Test Item Value Reference Range Interpretation Comme [facility] Lymphocytes % (test code = 736-9) 7.5 % 21.0-51.0 [facility] blood monocytes/100 jmtrwphrzo3803-94-00 05:17:00* Test Item Value Reference Range Interpretation Comme [facility] Monocytes % (test code = 5905-5) 6.9 % 0.0-10.0 [facility] blood eosinophils/100 knywtniaxp7015-91-47 05:17:00* Test Item Value Reference Range Interpretation Comme [facility] Eosinophils % (test code = 713-8) 0.1 % 0.0-10.0 [facility] basophils/100 zotatrearr8139-28-01 05:17:00* Test Item Value Reference Range Interpretation Comme nts Basophils % (test code = 706-2) 0.2 % 0.0-1.0 [facility]Autom[facility] blood immature granulocyte count as percentage of total ocxuukvckj2948-35-88 05:17:00* Test Item Value Reference Range Interpretation Comme nts Immature Granulocyte % (Auto ) (test code = 32177-1) 0.6 % 0-5 [facility] neutrophils automated count (number/volume) 2023-05-21 05:17:00* Test Item Value Reference Range Interpretation Comme [facility] Neutrophils # (test code = 751-8) 15.0 thou/uL 1.40-6.50 [facility] monocytes automated count (number/volume) 2023-05-21 05:17:00* Test Item Value Reference Range Interpretation Comme [facility] Monocytes # (test code = 742-7) 1.2 thou/uL 0.11-0.59 [facility] eosinophils automated count (count/volume) 2023-05-21 05:17:00* Test Item Value Reference Range Interpretation Comme [facility] Eosinophils # (test code = 711-2) 0.0 thou/uL 0.0-0.7 [facility] basophil count (count/volume) 2023-05-21 05:17:00* Test Item Value Reference Range Interpretation Comme [facility] Basophils # (test code = 704-7) 0.0 thou/uL 0.0-0.2 [facility] or plasma sodium measurement (moles/volume) 2023-05-21 05:17:00* Test Item Value Reference Range Interpretation Comme [facility] Sodium Level (test code = 2951-2) 135 mmol/L 136-145 [facility] or plasma potassium measurement (moles/volume) 2023-05-21 05:17:00* Test Item Value Reference Range Interpretation Comme [facility] Potassium Level (test code = 2823-3) 3.6 mmol/L 3.5-5.1 [facility] or plasma chloride measurement (moles/volume) 2023-05-21 05:17:00* Test Item Value Reference Range Interpretation Comme [facility] Chloride Level (test code = 2075-0) 103 mmol/L 98-107 [facility] or plasma carbon dioxide, total measurement (moles/volume)2023-05-21 05:17:00* Test Item Value Reference Range Interpretation Comme [facility] Carbon Dioxide Level (test c ode = 2027-9) 23 mmol/L 22-29 [facility] or plasma anion [id number] 05:17:00* Test Item Value Reference Range Interpretation Comme nts Anion Gap (test code = 88376-5) 13 mmol/L 10-20 [facility] or plasma urea nitrogen measurement (mass/volume)2023-05-21 05:17:00* Test Item Value Reference Range Interpretation Comme [facility] Blood Urea Nitrogen (test co de = 3094-0) 8 mg/dL 8.9-20.6 [facility] or plasma creatinine measurement (mass/volume) 2023-05-21 05:17:00* Test Item Value Reference Range Interpretation Comme [facility] Creatinine (test code = 2160-0) 0.76 mg/dL 0.7-1.3 [facility] CenterGlomerular filtration rate/1.73 sq M.predicted [Volume Rate/Area] in Serum, Plasma [id number] 05:17:00* Test Item Value Reference Range Interpretation Comme [facility] Estimated GFR (CKD-EPI 2020) (test code = 36550-7) 127 [facility]Glucose [Mass/volume] in Serum or [id number] 05:17:00* Test Item Value Reference Range Interpretation Comme [facility] Glucose Level (test code = 2345-7) 117 mg/dL 70-105 [facility] or plasma calcium measurement (mass/volume) 2023-05-21 05:17:00* Test Item Value Reference Range Interpretation Comme [facility] Calcium Level (test code = 31652-4) 9.0 mg/dL 7.8-10.44 [facility] or plasma phosphate measurement (mass/volume) 2023-05-21 05:17:00* Test Item Value Reference Range Interpretation Comme [facility] Phosphorus Level (test code = 2777-1) 3.1 mg/dL 2.3-4.7 [facility] magnesium measurement (mass/volume) 2023-05-21 05:17:00* Test Item Value Reference Range Interpretation Comme [facility] Magnesium Level (test code = 05405-5) 1.8 mg/dL 1.6-2.6 [facility]Leukocytes [#/volume] in Blood by Automated count 2023-05-21 05:17:00* Test Item Value Reference Range Interpretation Comme [facility] White Blood Count (test code = 6690-2) 17.7 10x3/uL 4.8-10.8 [facility] automated count (number/volume) 2023-05-21 05:17:00* Test Item Value Reference Range Interpretation Comme [facility] Red Blood Count (test code = 789-8) 4.19 mill/uL 4.70-6.10 [facility] hemoglobin measurement (mass/volume)2023-05-21 05:17:00* Test Item Value Reference Range Interpretation Comme [facility] Hemoglobin (test code = 718-7) 12.9 g/dL 14.0-18.0 [facility]ematoc[facility], whole ntyfq2034-82-27 05:17:00* Test Item Value Reference Range Interpretation Comme [facility] Hematocrit (test code = 50080-9) 38.7 % 42.0-52.0 [facility] mean corpuscular volume 2023-05-21 05:17:00* Test Item Value Reference Range Interpretation Comme [facility] Mean Corpuscular Volume (tere t code = 787-2) 92.4 fl 78.0-98.0 [facility] mean corpuscular hemoglobin (mass per erythrocyte)2023-05-21 05:17:00* Test Item Value Reference Range Interpretation Comme [facility] Mean Corpuscular Hemoglobin (test code = 785-6) 30.8 pg 27.0-31.0 [facility] mean corpuscular hemoglobin concentration measurement (mass/qsr7627-34-11 05:17:00* Test Item Value Reference Range Interpretation Comme [facility] Mean Corpuscular Hemoglobin Concent (test code = 786-4) 33.3 g/dL 32.0-36.0 [facility] eryth[facility] distribution width ratio 2023-05-21 05:17:00* Test Item Value [facility] Distribution Width (test code = 788-0) 13.3 % 11.5-14.5 [facility] platelet count (count/volume) 2023-05-21 05:17:00* Test Item Value Reference Range Interpretation Comme [facility] Platelet Count (test code = 777-3) 163 10x3/uL 130-400 [facility] platelet mean igyign1616-15-66 05:17:00* Test Item Value Reference Range Interpretation Comme [facility] Mean Platelet Volume (test c ode = 01026-4) 10.7 fL 7.4-10.4 [facility] Center[facility] blood neutrophils/100 igpmtopeky4301-06-85 05:17:00* Test Item Value Reference Range Interpretation Comme [facility] Neutrophils % (test code = 770-8) 84.7 % 42.0-75.0 [facility]mphocytes/100 leukocytes in Blood by Automated count 2023-05-21 05:17:00* Test Item Value Reference [facility] Lymphocytes % (test code = 736-9) 7.5 % 21.0-51.0 [facility] monocytes/100 smglfwltui4386-19-80 05:17:00* Test Item Value Reference Range Interpretation [facility] Monocytes % (test code = 5905-5) 6.9 % 0.0-10.0 [facility] blood eosinophils/100 jzhdpwtabz9437-17-01 05:17:00* Test Item Value Reference Range Interpretation Comme [facility] Eosinophils % (test code = 713-8) 0.1 % 0.0-10.0 [facility] basophils/100 dmzqaygkbj3024-21-17 05:17:00* Test Item Value Reference Range Interpretation Comme [facility] Basophils % (test code = 706-2) 0.2 % 0.0-1.0 [facility] blood immature granulocyte count as percentage of total tbiazpbgrk4915-50-28 05:17:00* Test Item Value Reference Range Interpretation Comme [facility] Immature Granulocyte % (Auto ) (test code = 02191-7) 0.6 % 0-5 [facility] neutrophils automated count (number/volume) 2023-05-21 05:17:00* Test Item Value Reference Range Interpretation Comme [facility] Neutrophils # (test code = 751-8) 15.0 thou/uL 1.40-6.50 [facility] monocytes automated count (number/volume) 2023-05-21 05:17:00* Test Item Value Reference Range Interpretation Comme [facility] Monocytes # (test code = 742-7) 1.2 thou/uL 0.11-0.59 [facility] eosinophils automated count (count/volume) 2023-05-21 05:17:00* Test Item Value Reference Range Interpretation Comme [facility] Eosinophils # (test code = 711-2) 0.0 thou/uL 0.0-0.7 [facility] blood basophil count (count/volume) 2023-05-21 05:17:00* Test Item Value Reference Range Interpretation Comme [facility] Basophils # (test code = 704-7) 0.0 thou/uL 0.0-0.2 [facility] 19:52:00* Test Item Value Reference Range Interpretation Comme [facility] Chemistry (test code = NA-T) 139 mmol/L 136-145 N Chemistry (test code = K-T) 3.6 mmol/L 3.5-5.1 N Chemistry (test code = CL-T) 107 mmol/L 98-107 N Chemistry (test code = CO2-T) 22 mmol/L 22-29 N Chemistry (test code = ANGP) 14 mmol/L 10-20 N Chemistry (test code = BUN) 9 mg/dL 8.9-20.6 N Chemistry (test code = CREATT) 0.81 mg/dL 0.7-1.3 N Chemistry (test code = EGFRCR) 125 Reference Range for Estimated GFR: Greater than 90 mL/min/1.73 [id number] eGFR is based on the CKD-EPI 2020 equation thatdoes not use a race coefficient. Chemistry (test code = GLU-T) 121 mg/dL 70-105 H Chemistry (test code = CA-T) 9.1 mg/dL 7.8-10.44 N Chemistry (test code = TBILI-T) 0.4 mg/dL 0.2-1.2 N Chemistry (test code = TP) 7.0 g/dL 6.0-8.3 N Chemistry (test code = ALB) 4.4 g/dL 3.5-5.0 N Chemistry (test code = GLOB) 2.6 g/dL 2.4-3.5 N Chemistry (test code = AG) 1.7 g/dL 1.2-2.2 N Chemistry (test code = ALP) 61 U/L 40-110 N Chemistry (test code = AST) 18 U/L 5-34 N Chemistry (test code = ALT) 17 U/L 8-55 N NUqirosunmt7415-10-07 19:28:00* Test Item Value Reference Range Interpretation Comme nts Hematology (test code = WBCT) 13.8 10x3/uL 4.8-10.8 H Hematology (test code = RBCT) 4.22 mill/uL 4.70-6.10 L Hematology (test code = HGBT) 13.1 g/dL 14.0-18.0 L Hematology (test code = HCTT) 39.5 % 42.0-52.0 L Hematology (test code = MCV) 93.6 fl 78.0-98.0 N Hematology (test code = MCH) 31.0 pg 27.0-31.0 N Hematology (test code = MCHC) 33.2 g/dL 32.0-36.0 N Hematology (test code = RDW) 13.5 % 11.5-14.5 N Hematology (test code = PLTT) 175 10x3/uL 130-400 N Hematology (test code = MPV) 10.3 fL 7.4-10.4 N Hematology (test code = %NEUT) 77.4 % 42.0-75.0 H Hematology (test code = %LYMPH) 16.1 % 21.0-51.0 L Hematology (test code = %MONO) 5.2 % 0.0-10.0 N Hematology (test code = %EOS) 0.5 % 0.0-10.0 N Hematology (test code = %BASO) 0.4 % 0.0-1.0 N Hematology (test code = %IG) 0.4 % 0-5 N Hematology (test code = %NRBC) 0.0 % 0.0-0.0 N Hematology (test code = NEUT#) 10.7 thou/uL 1.40-6.50 H Hematology (test code = LYMPH#XN) 2.2 10x3/uL 1.20-3.40 N Hematology (test code = MONO#) 0.7 thou/uL 0.11-0.59 H Hematology (test code = EOS#) 0.1 thou/uL 0.0-0.7 N Hematology (test code = BASO#) 0.1 thou/uL 0.0-0.2 N Hematology (test code = IG#) 0.06 10x3/uL 0.00-0.50 N Hematology (test code = NRBC#) 0.0 10x3/uL None Seen N SSerum or plasma total bilirubin measurement (mass/volume)2023-05-20 19:10:00* Test Item Value Reference Range Interpretation Comme [facility] Total Bilirubin (test code = 1975-2) 0.4 mg/dL 0.2-1.2 [facility] or plasma protein measurement (mass/volume) 2023-05-20 19:10:00* Test Item Value Reference Range Interpretation Comme [facility] Serum Total Protein (test co de = 2885-2) 7.0 g/dL 6.0-8.3 [facility] or plasma albumin measurement by bromocresol green (BCG) dye binding method ([id number] 19:10:00* Test Item Value Reference Range Interpretation Comme [facility] Albumin (test code = 65700-6) 4.4 g/dL 3.5-5.0 [facility] [Mass/volume] in Serum by calculation 2023-05-20 19:10:00* Test Item Value Reference Range Interpretation Comme [facility] Globulin (test code = 40804-8) 2.6 g/dL 2.4-3.5 [facility]Globulin [Mass Ratio] in Serum or Plasma 2023-05-20 19:10:00* Test Item Value Reference Range Interpretation Comme [facility] Albumin/Globulin Ratio (test code = 1759-0) 1.7 g/dL 1.2-2.2 [facility] [Enzymatic activity/volume] in Serum or [id number] 19:10:00* Test Item Value Reference Range Interpretation Comme nts Alkaline Phosphatase (test c ode = 6768-6) 61 U/L 40-110 [facility] or plasma aspartate aminotransferase measurement (enzymatic activity/volume)2023-05-20 19:10:00* Test Item Value Reference Range Interpretation Comme nts Aspartate Amino Transf (AST/ SGOT) (test code = 1920-8) 18 U/L 5-34 [facility] or plasma alanine aminotransferase measurement without P-5'-P (enzymatic [id number] 19:10:00* Test Item Value Reference Range Interpretation Comme nts Alanine Aminotransferase (AL T/SGPT) (test code = 1744-2) 17 U/L 8-55 [facility] [facility] or plasma total bilirubin measurement (mass/volume)2023-05-20 19:10:00* Test Item Value Reference Range Interpretation Comme [facility] Total Bilirubin (test code = 1975-2) 0.4 mg/dL 0.2-1.2 [facility] or plasma protein measurement (mass/volume) 2023-05-20 19:10:00* Test Item Value Reference Range Interpretation Comme [facility] Serum Total Protein (test co de = 2885-2) 7.0 g/dL 6.0-8.3 [facility] or plasma albumin measurement by bromocresol green (BCG) dye binding method ([id number] 19:10:00* Test Item Value Reference Range Interpretation Comme [facility] Albumin (test code = 60350-8) 4.4 g/dL 3.5-5.0 [facility] by calculation 2023-05-20 19:10:00* Test Item Value Reference Range Interpretation Comme nts Globulin (test code = 09691-7) 2.6 g/dL 2.4-3.5 [facility] Ratio] in Serum or Plasma 2023-05-20 19:10:00* Test Item Value Reference Range Interpretation Comme [facility] Albumin/Globulin Ratio (test code = 1759-0) 1.7 g/dL 1.2-2.2 [facility] [Enzymatic activity/volume] in Serum or [id number] 19:10:00* Test Item Value Reference Range Interpretation Comme nts Alkaline Phosphatase (test c ode = 6768-6) 61 U/L 40-110 [facility] or plasma aspartate aminotransferase measurement (enzymatic activity/volume)2023-05-20 19:10:00* Test Item Value Reference Range Interpretation Comme nts Aspartate Amino Transf (AST/ SGOT) (test code = 1920-8) 18 U/L 5-34 [facility] or plasma alanine aminotransferase measurement without P-5'-P (enzymatic [id number] 19:10:00* Test Item Value Reference Range Interpretation Comme nts Alanine Aminotransferase (AL T/SGPT) (test code = 1744-2) 17 U/L 8-55 [facility] or plasma sodium measurement (moles/volume) 2023-05-20 19:10:00* Test Item Value Reference Range Interpretation Comme nts Sodium Level (test code = 2951-2) 139 mmol/L 136-145 [facility] or plasma potassium measurement (moles/volume) 2023-05-20 19:10:00* Test Item Value Reference Range Interpretation Comme [facility] Potassium Level (test code = 2823-3) 3.6 mmol/L 3.5-5.1 [facility] or plasma total bilirubin measurement (mass/volume)2023-05-20 19:10:00* Test Item Value Reference Range Interpretation Comme nts Total Bilirubin (test code = 1975-2) 0.4 mg/dL 0.2-1.2 [facility] or plasma protein measurement (mass/volume) 2023-05-20 19:10:00* Test Item Value Reference Range Interpretation Comme [facility] Serum Total Protein (test co de = 2885-2) 7.0 g/dL 6.0-8.3 [facility] or plasma albumin measurement by bromocresol green (BCG) dye binding method ([id number] 19:10:00* Test Item Value Reference Range Interpretation Comme nts Albumin (test code = 66351-5) 4.4 g/dL 3.5-5.0 [facility] by calculation 2023-05-20 19:10:00* Test Item Value Reference Range Interpretation Comme nts Globulin (test code = 51455-8) 2.6 g/dL 2.4-3.5 [facility]Mass Ratio] in Serum or Plasma 2023-05-20 19:10:00* Test Item Value Reference Range Interpretation Comme nts Albumin/Globulin Ratio (test code = 1759-0) 1.7 g/dL 1.2-2.2 [facility] or plasma chloride measurement (moles/volume) 2023-05-20 19:10:00* Test Item Value Reference Range Interpretation Comme nts Chloride Level (test code = 2075-0) 107 mmol/L 98-107 [facility] [Enzymatic activity/volume] in Serum or [id number] 19:10:00* Test Item Value Reference Range Interpretation Comme nts Alkaline Phosphatase (test c ode = 6768-6) 61 U/L 40-110 [facility] or plasma aspartate aminotransferase measurement (enzymatic activity/volume)2023-05-20 19:10:00* Test Item Value Reference Range Interpretation Comme nts Aspartate Amino Transf (AST/ SGOT) (test code = 1920-8) 18 U/L 5-34 [facility] or plasma alanine aminotransferase measurement without P-5'-P (enzymatic [id number] 19:10:00* Test Item Value Reference Range Interpretation Comme nts Alanine Aminotransferase (AL T/SGPT) (test code = 1744-2) 17 U/L 8-55 [facility] or plasma carbon dioxide, total measurement (moles/volume)2023-05-20 19:10:00* Test Item Value Reference Range Interpretation Comme nts Carbon Dioxide Level (test c ode = 2028-9) 22 mmol/L 22-29 [facility] or plasma anion [id number] 19:10:00* Test Item Value Reference Range Interpretation Comme nts Anion Gap (test code = 94383-1) 14 mmol/L 10-20 [facility] or plasma urea nitrogen measurement (mass/volume)2023-05-20 19:10:00* Test Item Value Reference Range Interpretation Comme nts Blood Urea Nitrogen (test co de = 3094-0) 9 mg/dL 8.9-20.6 [facility] or plasma creatinine measurement (mass/volume) 2023-05-20 19:10:00* Test Item Value Reference Range Interpretation Comme nts Creatinine (test code = 2160-0) 0.81 mg/dL 0.7-1.3 [facility] or plasma total bilirubin measurement (mass/volume)2023-05-20 19:10:00* Test Item Value Reference Range Interpretation Comme nts Total Bilirubin (test code = 1975-2) 0.4 mg/dL 0.2-1.2 [facility] or plasma protein measurement (mass/volume) 2023-05-20 19:10:00* Test Item Value Reference Range Interpretation Comme nts Serum Total Protein (test co de = 2885-2) 7.0 g/dL 6.0-8.3 [facility] or plasma albumin measurement by bromocresol green (BCG) dye binding method ([id number] 19:10:00* Test Item Value Reference Range Interpretation Comme [facility] Albumin (test code = 29669-4) 4.4 g/dL 3.5-5.0 [facility] in Serum by calculation 2023-05-20 19:10:00* Test Item Value Reference Range Interpretation Comme [facility] Globulin (test code = 85129-7) 2.6 g/dL 2.4-3.5 [facility] [Mass Ratio] in Serum or Plasma 2023-05-20 19:10:00* Test Item Value Reference Range Interpretation Comme [facility] Albumin/Globulin Ratio (test code = 1759-0) 1.7 g/dL 1.2-2.2 [facility] CenterGlomerular filtration rate/1.73 sq M.predicted [Volume Rate/Area] in Serum, Plasma [id number] 19:10:00* Test Item Value Reference Range Interpretation Comme [facility] Estimated GFR (CKD-EPI 2020) (test code = 23082-1) 125 [facility] [Enzymatic activity/volume] in Serum or [id number] 19:10:00* Test Item Value Reference Range Interpretation Comme nts Alkaline Phosphatase (test c ode = 6768-6) 61 U/L 40-110 [facility] or plasma aspartate aminotransferase measurement (enzymatic activity/volume)2023-05-20 19:10:00* Test Item Value Reference Range Interpretation Comme nts Aspartate Amino Transf (AST/ SGOT) (test code = 1920-8) 18 U/L 5-34 [facility] or plasma alanine aminotransferase measurement without P-5'-P (enzymatic [id number] 19:10:00* Test Item Value Reference Range Interpretation Comme nts Alanine Aminotransferase (AL T/SGPT) (test code = 1744-2) 17 U/L 8-55 [facility] [Mass/volume] in Serum or [id number] 19:10:00* Test Item Value Reference Range Interpretation Comme nts Glucose Level (test code = 2345-7) 121 mg/dL 70-105 [facility] or plasma calcium measurement (mass/volume) 2023-05-20 19:10:00* Test Item Value Reference Range Interpretation Comme [facility] Calcium Level (test code = 54396-1) 9.1 mg/dL 7.8-10.44 [facility] or plasma total bilirubin measurement (mass/volume)2023-05-20 19:10:00* Test Item Value Reference Range Interpretation Comme nts Total Bilirubin (test code = 1975-2) 0.4 mg/dL 0.2-1.2 [facility] or plasma protein measurement (mass/volume) 2023-05-20 19:10:00* Test Item Value Reference Range Interpretation Comme [facility] Serum Total Protein (test co de = 2885-2) 7.0 g/dL 6.0-8.3 [facility] or plasma albumin measurement by bromocresol green (BCG) dye binding method ([id number] 19:10:00* Test Item Value Reference Range Interpretation Comme nts Albumin (test code = 29692-7) 4.4 g/dL 3.5-5.0 [facility] or plasma total bilirubin measurement (mass/volume)2023-05-20 19:10:00* Test Item Value Reference Range Interpretation Comme [facility] Total Bilirubin (test code = 1975-2) 0.4 mg/dL 0.2-1.2 [facility] or plasma protein measurement (mass/volume) 2023-05-20 19:10:00* Test Item Value Reference Range Interpretation Comme [facility] Serum Total Protein (test co de = 2885-2) 7.0 g/dL 6.0-8.3 [facility] or plasma albumin measurement by bromocresol green (BCG) dye binding method ([id number] 19:10:00* Test Item Value Reference Range Interpretation Comme [facility] Albumin (test code = 38501-2) 4.4 g/dL 3.5-5.0 [facility] [Mass/volume] in Serum by calculation 2023-05-20 19:10:00* Test Item Value Reference Range Interpretation Comme [facility] Globulin (test code = 67549-9) 2.6 g/dL 2.4-3.5 [facility] [Mass Ratio] in Serum or Plasma 2023-05-20 19:10:00* Test Item Value Reference Range Interpretation Comme [facility] Albumin/Globulin Ratio (test code = 1759-0) 1.7 g/dL 1.2-2.2 [facility] [Enzymatic activity/volume] in Serum or [id number] 19:10:00* Test Item Value Reference Range Interpretation Comme [facility] Alkaline Phosphatase (test c ode = 6768-6) 61 U/L 40-110 [facility] or plasma aspartate aminotransferase measurement (enzymatic activity/volume)2023-05-20 19:10:00* Test Item Value Reference Range Interpretation Comme [facility] Aspartate Amino Transf (AST/ SGOT) (test code = 1920-8) 18 U/L 5-34 [facility] [Mass/volume] in Serum by calculation 2023-05-20 19:10:00* Test Item Value Reference Range Interpretation Comme nts Globulin (test code = 04267-1) 2.6 g/dL 2.4-3.5 [facility] alanine aminotransferase measurement without P-5'-P (enzymatic [id number] 19:10:00* Test Item Value Reference Range Interpretation Comme nts Alanine Aminotransferase (AL T/SGPT) (test code = 1744-2) 17 U/L 8-55 [facility] [Mass Ratio] in Serum or Plasma 2023-05-20 19:10:00* Test Item Value Reference Range Interpretation Comme nts Albumin/Globulin Ratio (test code = 1759-0) 1.7 g/dL 1.2-2.2 [facility] [Enzymatic activity/volume] in Serum or [id number] 19:10:00* Test Item Value Reference Range Interpretation Comme nts Alkaline Phosphatase (test c ode = 6768-6) 61 U/L 40-110 [facility] or plasma aspartate aminotransferase measurement (enzymatic activity/volume)2023-05-20 19:10:00* Test Item Value Reference Range Interpretation Comme nts Aspartate Amino Transf (AST/ SGOT) (test code = 1920-8) 18 U/L 5-34 [facility] or plasma total bilirubin measurement (mass/volume)2023-05-20 19:10:00* Test Item Value Reference Range Interpretation Comme nts Total Bilirubin (test code = 1975-2) 0.4 mg/dL 0.2-1.2 [facility] or plasma alanine aminotransferase measurement without P-5'-P (enzymatic [id number] 19:10:00* Test Item Value Reference Range Interpretation Comme nts Alanine Aminotransferase (AL T/SGPT) (test code = 1744-2) 17 U/L 8-55 [facility] or plasma protein measurement (mass/volume) 2023-05-20 19:10:00* Test Item Value Reference Range Interpretation Comme nts Serum Total Protein (test co de = 2885-2) 7.0 g/dL 6.0-8.3 [facility] or plasma albumin measurement by bromocresol green (BCG) dye binding method ([id number] 19:10:00* Test Item Value Reference Range Interpretation Comme nts Albumin (test code = 77612-0) 4.4 g/dL 3.5-5.0 [facility]/volume] in Serum by calculation 2023-05-20 19:10:00* Test Item Value Reference Range Interpretation Comme nts Globulin (test code = 25501-3) 2.6 g/dL 2.4-3.5 [facility] [Mass Ratio] in Serum or Plasma 2023-05-20 19:10:00* Test Item Value Reference Range Interpretation Comme nts Albumin/Globulin Ratio (test code = 1759-0) 1.7 g/dL 1.2-2.2 [facility] phosphatase [Enzymatic activity/volume] in Serum or [id number] 19:10:00* Test Item Value Reference Range Interpretation Comme nts Alkaline Phosphatase (test c ode = 6768-6) 61 U/L 40-110 [facility] or plasma aspartate aminotransferase measurement (enzymatic activity/volume)2023-05-20 19:10:00* Test Item Value Reference Range Interpretation Comme nts Aspartate Amino Transf (AST/ SGOT) (test code = 1920-8) 18 U/L 5-34 [facility] or plasma alanine aminotransferase measurement without P-5'-P (enzymatic [id number] 19:10:00* Test Item Value Reference Range Interpretation Comme nts Alanine Aminotransferase (AL T/SGPT) (test code = 1744-2) 17 U/L 8-55 [facility] [#/volume] in Blood by Automated count 2023-05-20 19:10:00* Test Item Value Reference Range Interpretation Comme nts White Blood Count (test code = 6690-2) 13.8 10x3/uL 4.8-10.8 [facility] erythrocytes automated count (number/volume) 2023-05-20 19:10:00* Test Item Value Reference Range Interpretation Comme nts Red Blood Count (test code = 789-8) 4.22 mill/uL 4.70-6.10 [facility] hemoglobin measurement (mass/volume)2023-05-20 19:10:00* Test Item Value Reference Range Interpretation Comme nts Hemoglobin (test code = 718-7) 13.1 g/dL 14.0-18.0 [facility] [id number] 19:10:00* Test Item Value Reference Range Interpretation Comme [facility] Hematocrit (test code = 64350-7) 39.5 % 42.0-52.0 [facility] or plasma total bilirubin measurement (mass/volume)2023-05-20 19:10:00* Test Item Value Reference Range Interpretation Comme [facility] Total Bilirubin (test code = 1975-2) 0.4 mg/dL 0.2-1.2 [facility] corpuscular volume 2023-05-20 19:10:00* Test Item Value Reference Range Interpretation Comme [facility] Mean Corpuscular Volume (tere t code = 787-2) 93.6 fl 78.0-98.0 [facility] or plasma protein measurement (mass/volume) 2023-05-20 19:10:00* Test Item Value Reference Range Interpretation Comme [facility] Serum Total Protein (test co de = 2885-2) 7.0 g/dL 6.0-8.3 [facility] or plasma albumin measurement by bromocresol green (BCG) dye binding method ([id number] 19:10:00* Test Item Value Reference Range Interpretation Comme [facility] Albumin (test code = 63867-9) 4.4 g/dL 3.5-5.0 [facility] [Mass/volume] in Serum by calculation 2023-05-20 19:10:00* Test Item Value Reference Range Interpretation Comme [facility] Globulin (test code = 18635-7) 2.6 g/dL 2.4-3.5 [facility] [Mass Ratio] in Serum or Plasma 2023-05-20 19:10:00* Test Item Value Reference Range Interpretation Comme [facility] Albumin/Globulin Ratio (test code = 1759-0) 1.7 g/dL 1.2-2.2 [facility]Alk[facility] phosphatase [Enzymatic activity/volume] in Serum or [id number] 19:10:00* Test Item Value Reference Range Interpretation Comme [facility] Alkaline Phosphatase (test c ode = 6768-6) 61 U/L 40-110 [facility] aspartate aminotransferase measurement (enzymatic activity/volume)2023-05-20 19:10:00* Test Item Value Reference Range Interpretation Comme [facility] Aspartate Amino Transf (AST/ SGOT) (test code = 1920-8) 18 U/L 5-34 [facility] or plasma alanine aminotransferase measurement without P-5'-P (enzymatic [id number] 19:10:00* Test Item Value Reference Range Interpretation Comme [facility] Alanine Aminotransferase (AL T/SGPT) (test code = 1744-2) 17 U/L 8-55 [facility] erythrocyte mean corpuscular hemoglobin (mass per erythrocyte)2023-05-20 19:10:00* Test Item Value Reference Range Interpretation Comme [facility] Mean Corpuscular Hemoglobin (test code = 785-6) 31.0 pg 27.0-31.0 [facility] erythrocyte mean corpuscular hemoglobin concentration measurement (mass/[id number] 19:10:00* Test Item Value Reference Range Interpretation Comme [facility] Mean Corpuscular Hemoglobin Concent (test code = 786-4) 33.2 g/dL 32.0-36.0 [facility] erythrocyte distribution width ratio 2023-05-20 19:10:00* Test Item Value Reference Range Interpretation Comme [facility] Red Cell Distribution Width (test code = 788-0) 13.5 % 11.5-14.5 [facility] blood platelet count (count/volume) 2023-05-20 19:10:00* Test Item Value Reference Range Interpretation Comme [facility] Platelet Count (test code = 777-3) 175 10x3/uL 130-400 [facility] blood platelet mean [id number] 19:10:00* Test Item Value Reference Range Interpretation Comme [facility] Mean Platelet Volume (test c ode = 99223-1) 10.3 fL 7.4-10.4 [facility] or plasma total bilirubin measurement (mass/volume)2023-05-20 19:10:00* Test Item Value Reference Range Interpretation Comme [facility] Total Bilirubin (test code = 1975-2) 0.4 mg/dL 0.2-1.2 [facility] or plasma protein measurement (mass/volume) 2023-05-20 19:10:00* Test Item Value Reference Range Interpretation Comme [facility] Serum Total Protein (test co de = 2885-2) 7.0 g/dL 6.0-8.3 [facility] or plasma albumin measurement by bromocresol green (BCG) dye binding method ([id number] 19:10:00* Test Item Value Reference Range Interpretation Comme nts Albumin (test code = 40554-9) 4.4 g/dL 3.5-5.0 [facility] [Mass/volume] in Serum by calculation 2023-05-20 19:10:00* Test Item Value Reference Range Interpretation Comme nts Globulin (test code = 83062-5) 2.6 g/dL 2.4-3.5 [facility] [Mass Ratio] in Serum or Plasma 2023-05-20 19:10:00* Test Item Value Reference Range Interpretation Comme [facility] Albumin/Globulin Ratio (test code = 1759-0) 1.7 g/dL 1.2-2.2 [facility] [Enzymatic activity/volume] in Serum or [id number] 19:10:00* Test Item Value Reference Range Interpretation Comme [facility] Alkaline Phosphatase (test c ode = 6768-6) 61 U/L 40-110 [facility] or plasma aspartate aminotransferase measurement (enzymatic activity/volume)2023-05-20 19:10:00* Test Item Value Reference Range Interpretation Comme nts Aspartate Amino Transf (AST/ SGOT) (test code = 1920-8) 18 U/L 5-34 [facility] or plasma alanine aminotransferase measurement without P-5'-P (enzymatic [id number] 19:10:00* Test Item Value Reference Range Interpretation Comme [facility] Alanine Aminotransferase (AL T/SGPT) (test code = 1744-2) 17 U/L 8-55 [facility]/100 [id number] 19:10:00* Test Item Value Reference Range Interpretation Comme [facility] Neutrophils % (test code = 770-8) 77.4 % 42.0-75.0 [facility] leukocytes in Blood by Automated count 2023-05-20 19:10:00* Test Item Value Reference Range Interpretation Comme [facility] Lymphocytes % (test code = 736-9) 16.1 % 21.0-51.0 [facility] monocytes/100 taaydahzhc4873-57-75 19:10:00* Test Item Value Reference Range Interpretation Comme [facility] Monocytes % (test code = 5905-5) 5.2 % 0.0-10.0 [facility] blood eosinophils/100 mztvikmfkl8773-38-75 19:10:00* Test Item Value Reference Range Interpretation Comme [facility] Eosinophils % (test code = 713-8) 0.5 % 0.0-10.0 [facility] blood basophils/100 juqrvukkqu3705-72-60 19:10:00* Test Item Value Reference Range Interpretation Comme [facility] Basophils % (test code = 706-2) 0.4 % 0.0-1.0 [facility] total bilirubin measurement (mass/volume)2023-05-20 19:10:00* Test Item Value Reference Range Interpretation Comme [facility] Total Bilirubin (test code = 1975-2) 0.4 mg/dL 0.2-1.2 [facility] or plasma protein measurement (mass/volume) 2023-05-20 19:10:00* Test Item Value Reference Range Interpretation Comme [facility] Serum Total Protein (test co de = 2885-2) 7.0 g/dL 6.0-8.3 [facility] blood immature granulocyte count as percentage of total tpskaroupj5529-25-66 19:10:00* Test Item Value Reference Range Interpretation Comme [facility] Immature Granulocyte % (Auto ) (test code = 27209-1) 0.4 % 0-5 [facility] or plasma albumin measurement by bromocresol green (BCG) dye binding method ([id number] 19:10:00* Test Item Value Reference Range Interpretation Comme [facility] Albumin (test code = 04443-7) 4.4 g/dL 3.5-5.0 [facility]] in Serum by calculation 2023-05-20 19:10:00* Test Item Value Reference Range Interpretation Comme nts Globulin (test code = 15152-9) 2.6 g/dL 2.4-3.5 [facility] [Mass Ratio] in Serum or Plasma 2023-05-20 19:10:00* Test Item Value Reference Range Interpretation Comme nts Albumin/Globulin Ratio (test code = 1759-0) 1.7 g/dL 1.2-2.2 [facility] phosphatase [Enzymatic activity/volume] in Serum or [id number] 19:10:00* Test Item Value Reference Range Interpretation Comme nts Alkaline Phosphatase (test c ode = 6768-6) 61 U/L 40-110 [facility] or plasma aspartate aminotransferase measurement (enzymatic activity/volume)2023-05-20 19:10:00* Test Item Value Reference Range Interpretation Comme nts Aspartate Amino Transf (AST/ SGOT) (test code = 1920-8) 18 U/L 5-34 [facility] or plasma alanine aminotransferase measurement without P-5'-P (enzymatic [id number] 19:10:00* Test Item Value Reference Range Interpretation Comme [facility] Alanine Aminotransferase (AL T/SGPT) (test code = 1744-2) 17 U/L 8-55 [facility] neutrophils automated count (number/volume) 2023-05-20 19:10:00* Test Item Value Reference Range Interpretation Comme [facility] Neutrophils # (test code = 751-8) 10.7 thou/uL 1.40-6.50 [facility] monocytes automated count (number/volume) 2023-05-20 19:10:00* Test Item Value Reference Range Interpretation Comme [facility] Monocytes # (test code = 742-7) 0.7 thou/uL 0.11-0.59 [facility] eosinophils automated count (count/volume) 2023-05-20 19:10:00* Test Item Value Reference Range Interpretation Comme [facility] Eosinophils # (test code = 711-2) 0.1 thou/uL 0.0-0.7 [facility] blood basophil count (count/volume) 2023-05-20 19:10:00* Test Item Value Reference Range Interpretation Comme nts Basophils # (test code = 704-7) 0.1 thou/uL 0.0-0.2 [facility] or plasma total bilirubin measurement (mass/volume)2023-05-20 19:10:00* Test Item Value Reference Range Interpretation Comme nts Total Bilirubin (test code = 1975-2) 0.4 mg/dL 0.2-1.2 [facility] or plasma protein measurement (mass/volume) 2023-05-20 19:10:00* Test Item Value Reference Range Interpretation Comme nts Serum Total Protein (test co de = 2885-2) 7.0 g/dL 6.0-8.3 [facility] or plasma albumin measurement by bromocresol green (BCG) dye binding method ([id number] 19:10:00* Test Item Value Reference Range Interpretation Comme nts Albumin (test code = 11470-9) 4.4 g/dL 3.5-5.0 [facility] Serum by calculation 2023-05-20 19:10:00* Test Item Value Reference Range Interpretation Comme nts Globulin (test code = 26124-5) 2.6 g/dL 2.4-3.5 [facility] Ratio] in Serum or Plasma 2023-05-20 19:10:00* Test Item Value Reference Range Interpretation Comme [facility] Albumin/Globulin Ratio (test code = 1759-0) 1.7 g/dL 1.2-2.2 [facility] [Enzymatic activity/volume] in Serum or [id number] 19:10:00* Test Item Value Reference Range Interpretation Comme nts Alkaline Phosphatase (test c ode = 6768-6) 61 U/L 40-110 [facility] or plasma aspartate aminotransferase measurement (enzymatic activity/volume)2023-05-20 19:10:00* Test Item Value Reference Range Interpretation Comme nts Aspartate Amino Transf (AST/ SGOT) (test code = 1920-8) 18 U/L 5-34 [facility] or plasma alanine aminotransferase measurement without P-5'-P (enzymatic [id number] 19:10:00* Test Item Value Reference Range Interpretation Comme nts Alanine Aminotransferase (AL T/SGPT) (test code = 1744-2) 17 U/L 8-55 [facility] / [facility] - DRUG SCREEN [id number] 20:47:00* Test Item Value Reference Range Interpretation Comme nts BENZO U (test code = 4094303672) Negative Negative SOFIA U (test code = 7991938712) Negative Negative AMPHET (test code = 8898149790) Negative Negative THC (test code = 4063245391) Presumptive Positive Negative A Confirmation of Presumptive Positive THC result requires physician order. METHADONE (test code = 0692442427) Negative Negative Meth U (test code = 9200532958) Negative Negative OPIATES (test code = 9074231926) Negative Negative Cocaine Metabolite (test code = 2267518534) Negative Negative PROPOXY (test code = 8705462189) Negative Negative Tric U (test code = 6017691721) Negative Negative PCP (test code = 9310255630) Negative Negative OXYCOD (test code = 0484487391) Negative Negative AUTUMN (test code = AUTUMN) Urine Drug Cutoff Ranges Benzodiazepines: ? ? 150 ng/mLBarbiturates : ?200 ng/mLAmphetamine: ? 500 ng/mLCannabinoids : ?50 ?ng/mLMethadone: ? 200 ng/mLMethamphetam ine: ? ? 500 ng/mL Opiates: ? 100 ng/mL or 2000 ng/mLCocaine: ? 150 ng/mLPropoxyphene : ?300 ng/mLTricyclics: ?300 ng/mLOxycodone: ? 100 ng/mLPCP: ? 25 ?ng/mL The results are to be used only for medical (i.e., treatment) purposes. Unconfirmed screening results must not be used for non-medical purposes (e.g., employment testing, legal testing). Lab Interpretation (test code = 40885-3) [facility] 20:00:00* Test Item Value Reference Range Interpretation Comme nts APPEARANCE (test code = 0673128916) Clear Clear COLOR (test code = 7492689110) Yellow Yellow PH (test code = 4577864576) 4.8-8.0 SP GRAVITY (test code = 9948008423) 1.003-1.030 GLU U QUAL (test code = 2464899148) Normal Normal BLOOD (test code = 5002453519) Negative Negative KETONES (test code = 0316068618) Negative Negative PROTEIN (test code = 2887-8) Negative Negative UROBILIN (test code = 2223600488) Normal Normal BILIRUBIN (test code = 9920681031) Negative Negative NITRITE (test code = 1556285438) Negative Negative LEUK KAYLENE (test code = 0225836126) Negative Negative RBC/HPF (test code = 1286755488) See_Comment [Automated [employer]] The system which generated this result transmitted reference range: 0 - 3 HPF. The reference range was not used to interpret this result as normal/abnormal. WBC/HPF (test code = 6578451795) See_Comment [Automated [employer]] The system which generated this result transmitted reference range: 0 - 5 HPF. The reference range was not used to interpret this result as normal/abnormal. BACTERIA (test code = 2409650428) Negative Negative MUCOUS (test code = 1657189624) Slight Negative LPF A AMORPHOUS (test code = 1913946894) Rare Rare HPF Lab Interpretation (test code = 46512-0) [facility]normal [facility]2020-12-14 19:57:00* Test Item Value Reference Range Interpretation Comme nts ALCOHOL (test code = 5055015958) <10 mg/dL AUTUMN (test code = AUTUMN) Toxic Greater than or equal to 80 mg/dL. NOTE: Whole blood values are approximately 10% to 15% lower than serum and plasma. [facility] METABOLIC PANEL ([id number])2020-08-21 19:54:00* Test Item Value Reference Range Interpretation Comme nts NA (test code = 2108887668) 140 mmol/L 135-145 K (test code = 5420500192) 4.1 mmol/L 3.5-5 CL (test code = 4528774429) 104 mmol/L 98-108 CO2 TOTAL (test code = 0521105390) 28 mmol/L 23-31 AGAP (test code = 3818674859) 2-16 BUN (test code = 7392625926) 7 mg/dL 7-23 GLUCOSE (test code = 3547819416) 118 mg/dL 70-110 H CREATININE (test code = 9155994897) 0.66 mg/dL 0.6-1.25 TOTAL BILI (test code = 2975126739) 0.3 mg/dL 0.1-1.1 CALCIUM (test code = 1752722447) 9.4 mg/dL 8.6-10.6 T PROTEIN (test code = 6422652093) 7.1 g/dL 6.3-8.2 ALBUMIN (test code = 5474849696) 4.7 g/dL 3.5-5 ALK PHOS (test code = 8811025268) 65 U/L 34-122 ALTv (test code = 1742-6) 14 U/L 5-50 AST(SGOT) (test code = 8874763216) 22 U/L 13-40 eGFR Calculation (Non-) (test code = 6017953218) mL/min/1.73m2 eGFR Calculation () (test code = 2585405712) mL/min/1.73m2 AUTUMN (test code = AUTUMN) Association of Glomerular Filtration Rate (GFR) and Staging of Kidney Disease* + --+ --+ ------+| GFR (mL/min/1.73 m2) ?| With Kidney Damage ?| ?Without Kidney Damage+ --------+ --------+ +| ?>90 ?| ?Stage one ?| ? Normal ?+ ---+ ---+ -------+| ?60-89 ?| ?Stage two ?| ? Decreased GFR ? + --+ --+ ------+| ?30-59 ?| ?Stage three ?| ? Stage three ? + --+ --+ ------+| ?15-29 ?| ?Stage four ? | ? Stage four ?+ ---+ ---+ -------+| ?<15 (or dialysis) ? ?| ?Stage five ? | ? Stage five ?+ ---+ ---+ -------+ *Each stage assumes the associated GFR level has been in effect for at least three months. ?Stages 1 to 5, with or without kidney disease, indicate chronic kidney disease. Notes: Determination of stages one and two (with eGFR >59mL/min/1.73 m2) requires estimation of kidney damage for at least three months as defined by structural or functional abnormalities of the kidney, manifested by either:Pathological abnormalities or Markers of kidney damage (including abnormalities in the composition of the blood or urine or abnormalities in imaging tests). Lab Interpretation (test code = 79940-0) Abnormal [facility] WITH [id number] 19:38:00* Test Item Value Reference Range Interpretation Comme nts WBC (test code = 6690-2) See_Comment [Automated [employer] ge] The system which generated this result transmitted reference range: 4.20 - 10.70 10*3/?L. The reference range was not used to interpret this result as normal/abnormal. RBC (test code = 789-8) See_Comment [Automated [employer]] The system which generated this result transmitted reference range: 4.26 - 5.52 10*6/?L. The reference range was not used to interpret this result as normal/abnormal. HGB (test code = 718-7) 14.5 g/dL 12.2-16.4 HCT (test code = 4544-3) 42.8 % 38.4-49.3 MCV (test code = 787-2) 90.1 fL 81.7-95.6 MCH (test code = 785-6) 30.5 pg 26.1-32.7 MCHC (test code = 786-4) 33.9 g/dL 31.2-35 RDW-SD (test code = 22999-4) 43.9 fL 38.5-51.6 RDW-CV (test code = 788-0) 13.3 % 12.1-15.4 PLT (test code = 777-3) See_Comment L [Automated messa ge] The system which generated this result transmitted reference range: 150 - 328 10*3/?L. The reference range was not used to interpret this result as normal/abnormal. MPV (test code = 19785-9) 10.8 fL 9.8-13 NRBC/100 WBC (test code = 5055249510) See_Comment [Automated [employer]age] The system which generated this result transmitted reference range: 0.0 - 10.0 /100 WBCs. The reference range was not used to interpret this result as normal/abnormal. NRBC x10^3 (test code = 6351290030) <0.01 See_Comment [Automated messa ge] The system which generated this result transmitted reference range: 10*3/?L. The reference range was not used to interpret this result as normal/abnormal. GRAN MAT (NEUT) % (test code = 770-8) 62.3 % IMM GRAN % (test code = 4561078388) 0.10 % LYMPH % (test code = 736-9) 27.2 % MONO % (test code = 5905-5) 7.0 % EOS % (test code = 713-8) 2.7 % BASO % (test code = 706-2) 0.7 % GRAN MAT x10^3(ANC) (test code = 3122666009) 4.62 10*3/uL 1.99-6.95 IMM GRAN x10^3 (test code = 3336000405) <0.03 0-0.06 LYMPH x10^3 (test code = 731-0) 2.02 10*3/uL 1.09-3.23 MONO x10^3 (test code = 742-7) 0.52 10*3/uL 0.36-1.02 EOS x10^3 (test code = 711-2) 0.20 10*3/uL 0.06-0.53 BASO x10^3 (test code = 704-7) 0.05 10*3/uL 0.01-0.09 Lab Interpretation (test code = 35467-4) [facility]normal [facility]ET[facility]INOPHEN2020-12-09 21:13:00* Test Item Value Reference Range Interpretation Comme nts ACETAMINOP (test code = 0211307003) <10.0 10-30 L AUTUMN (test code = AUTUMN) Toxic: Greater dmoinic n 200 ug/mL @ 4 hour post ingestion or greater than 50 ug/mL @ 12 hour post ingestion Lab Interpretation (test code = 20132-9) Abnormal [facility] AreaSALICYLATE2020-12-09 21:12:00* Test Item Value Reference Range Interpretation Comme nts SALICYLATE (test code = 9375133829) 54 mg/L AUTUMN (test code = AUTUMN) Therapeutic Range: ? Analgesic and Antipyretic Use ? 20-100 mg/L ? ? Anti-Inflammatory Use ? 100-250 mg/L Toxic Range: ? Greater than 300 mg/L [facility]OL2020-12-09 20:12:00* Test Item Value Reference Range Interpretation Comme nts ALCOHOL (test code = 3965880567) <10 mg/dL AUTUMN (test code = AUTUMN) <10 [id number] Toxic>100 Depression of AND [employer]YING [employer]>400 Fatalities Reported [facility] - DRUG SCREEN [id number] 20:08:00* Test Item Value Reference Range Interpretation Comme nts BENZO U (test code = 5007939876) Negative Negative SOFIA U (test code = 6039304328) Negative Negative AMPHET (test code = 8376944115) Negative Negative THC (test code = 4375686245) Presumptive Positive Negative A Confirmation of Presumptive Positive THC result requires physician order. METHADONE (test code = 0526930226) Negative Negative Meth U (test code = 3824998321) Negative Negative OPIATES (test code = 7909442075) Negative Negative Cocaine Metabolite (test code = 8371453748) Negative Negative PROPOXY (test code = 7768738824) Negative Negative Tric U (test code = 3012466633) Negative Negative PCP (test code = 1496396648) Negative Negative OXYCOD (test code = 0019985316) Negative Negative AUTUMN (test code = AUTUMN) Urine Drug Cutoff Ranges Benzodiazepines: ? ? 150 ng/mLBarbiturates : ?200 ng/mLAmphetamine: ? 500 ng/mLCannabinoids : ?50 ?ng/mLMethadone: ? 200 ng/mLMethamphetam ine: ? ? 500 ng/mL Opiates: ? 100 ng/mL or 2000 ng/mLCocaine: ? 150 ng/mLPropoxyphene : ?300 ng/mLTricyclics: ?300 ng/mLOxycodone: ? 100 ng/mLPCP: ? 25 ?ng/mL The results are to be used only for medical (i.e., treatment) purposes. Unconfirmed screening results must not be used for non-medical purposes (e.g., employment testing, legal testing). Lab Interpretation (test code = 13315-2) Abnormal [facility]2020-12-09 20:06:00* Test Item Value Reference Range Interpretation Comme nts APPEARANCE (test code = 2756980794) Clear Clear COLOR (test code = 9383819298) Yellow Yellow PH (test code = 1359199728) 4.8-8.0 SP GRAVITY (test code = 3282283738) 1.003-1.030 GLU U QUAL (test code = 9119407692) Normal Normal BLOOD (test code = 7089549152) Negative Negative KETONES (test code = 3714034885) Negative Negative PROTEIN (test code = 2887-8) Negative Negative UROBILIN (test code = 1870890307) Normal Normal BILIRUBIN (test code = 9664013892) Negative Negative NITRITE (test code = 1883747474) Negative Negative LEUK KAYLENE (test code = 8560786181) Negative Negative RBC/HPF (test code = 9461127935) See_Comment [Automated [employer] ge] The system which generated this result transmitted reference range: 0 - 3 HPF. The reference range was not used to interpret this result as normal/abnormal. WBC/HPF (test code = 6394323521) See_Comment [Automated [employer] ge] The system which generated this result transmitted reference range: 0 - 5 HPF. The reference range was not used to interpret this result as normal/abnormal. BACTERIA (test code = 2676562225) Few Negative A MUCOUS (test code = 3530953182) Moderate Negative LPF A SPERM (test code = 7686438043) See_Comment H [Automated messa ge] The system which generated this result transmitted reference range: <=1 HPF. The reference range was not used to interpret this result as normal/abnormal. HYAL CAST (test code = 2437850186) See_Comment [Automated [employer] ge] The system which generated this result transmitted reference range: <=2 LPF. The reference range was not used to interpret this result as normal/abnormal. Lab Interpretation (test code = 62185-6) Abnormal [facility] Area[facility] METABOLIC PANEL (94572)2020-08-16 20:05:00* Test Item Value Reference Range Interpretation Comme nts NA (test code = 8869416759) 139 mmol/L 135-145 K (test code = 5535009080) 4.2 mmol/L 3.5-5 CL (test code = 0360130785) 102 mmol/L 98-108 CO2 TOTAL (test code = 4985006407) 26 mmol/L 23-31 AGAP (test code = 7709037665) 2-16 BUN (test code = 2972682721) 13 mg/dL 7-23 GLUCOSE (test code = 5583496506) 129 mg/dL 70-110 H CREATININE (test code = 2304603818) 0.75 mg/dL 0.6-1.25 TOTAL BILI (test code = 1304259157) 0.7 mg/dL 0.1-1.1 CALCIUM (test code = 9330772669) 9.7 mg/dL 8.6-10.6 T PROTEIN (test code = 2247394792) 7.8 g/dL 6.3-8.2 ALBUMIN (test code = 3734758170) 4.8 g/dL 3.5-5 ALK PHOS (test code = 8541428447) 64 U/L 34-122 ALTv (test code = 1742-6) 15 U/L 5-50 AST(SGOT) (test code = 2911841313) 38 U/L 13-40 eGFR Calculation (Non-) (test code = 5260419099) mL/min/1.73m2 eGFR Calculation () (test code = 8018266022) mL/min/1.73m2 AUTUMN (test code = AUTUMN) Association of Glomerular Filtration Rate (GFR) and Staging of Kidney Disease* + --+ --+ ------+| GFR (mL/min/1.73 m2) ?| With Kidney Damage ?| ?Without Kidney Damage+ --------+ --------+ +| ?>90 ?| ?Stage one ?| ? Normal ?+ ---+ ---+ -------+| ?60-89 ?| ?Stage two ?| ? Decreased GFR ? + --+ --+ ------+| ?30-59 ?| ?Stage three ?| ? Stage three ? + --+ --+ ------+| ?15-29 ?| ?Stage four ? | ? Stage four ?+ ---+ ---+ -------+| ?<15 (or dialysis) ? ?| ?Stage five ? | ? Stage five ?+ ---+ ---+ -------+ *Each stage assumes the associated GFR level has been in effect for at least three months. ?Stages 1 to 5, with or without kidney disease, indicate chronic kidney disease. Notes: Determination of stages one and two (with eGFR >59mL/min/1.73 m2) requires estimation of kidney damage for at least three months as defined by structural or functional abnormalities of the kidney, manifested by either:Pathological abnormalities or Markers of kidney damage (including abnormalities in the composition of the blood or urine or abnormalities in imaging tests). Lab Interpretation (test code = 81300-3) [facility]normal [facility] HEAD WO [id number] 20:11:11 Impression: 1. ?No acute intracranial process.Exam: CT HEAD WO CONTRAST Clinical History: Seizure, new, abn neuro exam, nontraumatic Technique:Thin section CT brain with multiplanar reformats Comparison: None Findings: Ventricles are normal. There are no extra-axial collections.There is no evidenceof intracranial hemorrhage, mass, midline shift ormass effect. The basal ganglia are within normal limits. Basal cisterns are normal. The sella, parasellar regions are within normal limits. Review ofbone windows does not demonstrate any focal bony lesions. Mastoidair cells, middle ears are normal.Included portions of the skull base are normal. No fractures are identifiedin the cranium. [facility], Radiant Results Inft User - 08/10/2020 2:12 PM CSTExam: CT HEAD WO CONTRASTClinical History: Seizure, new, abn neuro exam, nontraumatic Technique:Thin section CT brain with multiplanar reformatsComparison: NoneFindings: Ventricles are normal. There are no extra-axial collections.There is no evidence of intracranial hemorrhage, mass, midline shift ormass effect.The basal ganglia are within normal limits. Basal cisterns are normal.The sella, parasellar regions are within normal limits.Review of bonewindows does not demonstrate any focal bony lesions. Mastoidair cells, middle ears are normal.Included portions of the skull base are normal. No fractures are identifiedin the cranium.IMPRESSIONImpres yanet:1. No acute intracranial process.[facility]. METABOLIC PANEL ([id number])2020-08-10 19:43:00* Test Item Value Reference Range Interpretation Comme nts NA (test code = 8853163941) 140 mmol/L 135-145 K (test code = 2000475218) 4.2 mmol/L 3.5-5 CL (test code = 7743941818) 105 mmol/L 98-108 CO2 TOTAL (test code = 5050082262) 28 mmol/L 23-31 AGAP (test code = 8896225091) 2-16 BUN (test code = 5779050273) 12 mg/dL 7-23 GLUCOSE (test code = 3564837051) 87 mg/dL 70-110 CREATININE (test code = 8329823271) 0.79 mg/dL 0.6-1.25 TOTAL BILI (test code = 8199612666) 0.6 mg/dL 0.1-1.1 CALCIUM (test code = 1904225125) 9.7 mg/dL 8.6-10.6 T PROTEIN (test code = 4021530103) 7.5 g/dL 6.3-8.2 ALBUMIN (test code = 2680745880) 4.8 g/dL 3.5-5 ALK PHOS (test code = 1130307334) 56 U/L 34-122 ALTv (test code = 1742-6) 13 U/L 5-50 AST(SGOT) (test code = 5088746122) 23 U/L 13-40 eGFR Calculation (Non-) (test code = 5551752152) mL/min/1.73m2 eGFR Calculation () (test code = 9261643061) mL/min/1.73m2 AUTUMN (test code = AUTUMN) Association of Glomerular Filtration Rate (GFR) and Staging of Kidney Disease* + -+ + ---+| GFR (mL/min/1.73 m2) ?| With Kidney Damage ?| ?Without Kidney Damage+ -------+ ------+ ---------+| ?>90 ?| ?Stage one ?| ? Normal ?+ --+ -+ ----+| ?60-89 ?| ?Stage two ?| ? Decreased GFR ? + -+ + ---+| ?30-59 ?| ?Stage three ?| ? Stage three ? + -+ + ---+| ?15-29 ?| ?Stage four ? | ? Stage four ?+ --+ -+ ----+| ?<15 (or dialysis) ? ?| ?Stage five ? | ? Stage five ?+ --+ -+ ----+ *Each stage assumes the associated GFR level has been in effect for at least three months. ?Stages 1 to 5, with or without kidney disease, indicate chronic kidney disease. Notes: Determination of stages one and two (with eGFR >59mL/min/1.73 m2) requires estimation of kidney damage for at least three months as defined by structural or functional abnormalities of the kidney, manifested by either:Pathological abnormalities or Markers of kidney damage (including abnormalities in the composition of the blood or urine or abnormalities in imaging tests). [facility]2020-[facility] 19:43:00* Test Item Value Reference Range Interpretation Comme nts MAGNESIUM (test code = 1950056433) 1.7 mg/dL 1.7-2.4 Lab Interpretation (test cod e = 61853-0) Normal [facility] WITH [id number] 18:53:00* Test Item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
[2024-03-05] MEDS ORDERED: TETRACAINE HCL 0.5% 4ML OPTH ONE (23:20)
[2024-03-05] MEDS ORDERED: FLUORESCEIN SODIUM 1 MG/WRAP ONE (23:32)
[2024-03-05] MEDS ORDERED: KETOROLAC 30 MG/ML INJ ONE (23:54)
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
--- NOTE | 2024-03-06 01:52 | ER ---
Nurse's Notes [facility] Name: Richi Edward Age: 28 yrs Sex: Male : 1995 Arrival Date: 03/05/2024 Time: 21:42 Bed 16 Private MD: Diagnosis: Headache;Other visual disturbances Presentation: 03/05 21:59 Chief complaint: Patient states: LEFT EYE PAIN AND PRESSURE X2 WEEKS. PT STATES THAT HE cm10 IS ALSO HAVING INTERMITTENT HEADACHES BEHIND LEFT EYE AND LEFT BUDDHISM. Coronavirus screen: Vaccine status: Patient reports being unvaccinated. Client denies travel out of the [place] in the last 14 days. At this time, the client does not indicate any symptoms associated with coronavirus-19. Ebola Screen: Patient denies travel to an Ebola-affected area in the 21 days before illness onset. No symptoms or risks identified at this time. Initial Sepsis Screen: Does the patient meet any 2 criteria? No. Patient's initial sepsis screen is negative. Does the patient have a suspected source of infection? No. Patient's initial sepsis screen is negative. Risk Assessment: Do you want to hurt yourself or someone else? Patient reports no desire to harm self or others. Onset of symptoms was March 05, 2024. 21:59 Method Of Arrival: Ambulatory cm10 21:59 Acuity: RADU 3 cm10 Triage Assessment: 22:04 General: Appears in no apparent distress. comfortable, Behavior is calm, cooperative. cm10 Pain: Complains of pain in left eye. Neuro: No deficits noted. Level of Consciousness is awake, alert, obeys commands, Oriented to person, place, time, situation, Appropriate for age. Respiratory: Airway is patent Respiratory effort is even, unlabored, Respiratory pattern is regular, symmetrical. Historical: - Allergies: 22:03 aloe vera; cm10 - PMHx: 22:03 Schizophrenia; Seizures; cm10 - PSHx: 22:03 ARM- RIGHT; FOOT- LEFT; cm10 - Immunization history:: Adult Immunizations up to date. - Infectious Disease History:: Denies. - Social history:: Smoking status: Patient reports the use of cigarette tobacco products, smokes one-half pack cigarettes per day. Screenin:10 [facility] ED Fall Risk Assessment (Adult) History of falling in the last 3 months, jw7 including since admission No falls in past 3 months (0 pts) Confusion or Disorientation No (0 pts) Intoxicated or Sedated No (0 pts) Impaired Gait No (0 pts) Mobility Assist Device Used No (0 pt) Altered Elimination No (0 pt) Score/Fall Risk Level 0 - 2 = Low Risk Oriented to surroundings, Maintained a safe environment, Educated pt \T\ family on fall prevention, incl call for assistance when getting out of bed. Abuse screen: Denies threats or abuse. Denies injuries from another. Nutritional screening: No deficits noted. Tuberculosis screening: No symptoms or risk factors identified. Assessment: 22:10 General: Appears in no apparent distress. uncomfortable, Behavior is calm, cooperative, jw7 appropriate for age. Pain: Complains of pain in left eye Pain does not radiate. Pain currently is 8 out of 10 on a pain scale. Quality of pain is described as throbbing, Pain began gradually, Is continuous. Neuro: Level of Consciousness is awake, alert, obeys commands, Oriented to person, place, time, situation, Appropriate for age. Cardiovascular: Heart tones S1 S2 present Capillary refill < 3 seconds Clubbing of nail beds is absent JVD is absent Patient's skin is warm and dry. Respiratory: Airway is patent Trachea midline Respiratory effort is even, unlabored, Respiratory pattern is regular, symmetrical. GI: Abdomen is flat, non-distended, Bowel sounds present X 4 quads. Abd is soft and non tender X 4 quads. : No deficits noted. No signs and/or symptoms were reported regarding the genitourinary system. EENT: Eyes redness to left eye. Reports pain in left eye. Derm: Skin is intact, is healthy with good turgor, Skin is dry, Skin is normal, Skin temperature is warm. Musculoskeletal: Circulation, motion, and sensation intact. Range of motion: intact in all extremities. 23:00 Reassessment: Patient appears in no apparent distress at this time. No changes from jw7 previously documented assessment. Patient and/or family updated on plan of care and expected duration. Pain level reassessed. Patient is alert, oriented x 3, equal unlabored respirations, skin warm/dry/pink. 03/06 00:00 Reassessment: Patient appears in no apparent distress at this time. No changes from jw7 previously documented assessment. Patient and/or family updated on plan of care and expected duration. Pain level reassessed. Patient is alert, oriented x 3, equal unlabored respirations, skin warm/dry/pink. 01:00 Reassessment: Patient appears in no apparent distress at this time. Patient and/or jw7 family updated on plan of care and expected duration. Pain level reassessed. Patient is alert, oriented x 3, equal unlabored respirations, skin warm/dry/pink. Patient states feeling better. Patient states symptoms have improved. 02:00 Reassessment: Patient appears in no apparent distress at this time. No changes from jw7 previously documented assessment. Patient and/or family updated on plan of care and expected duration. Pain level reassessed. Patient is alert, oriented x 3, equal unlabored respirations, skin warm/dry/pink. Vital Signs: 03/05 21:59 BP 140 / 81; Pulse 83; Resp 18; Temp 99(O); Pulse Ox 98% on R/A; Weight 68.04 kg; cm10 Height 5 ft. 11 in. ; Pain 6/10; 23:50 BP 135 / 75; Pulse 66; Resp 16 S; Pulse Ox 99% on R/A; jw7 03/06 01:00 BP 114 / 72; Pulse 66; Resp 16 S; Pulse Ox 99% on R/A; jw7 02:00 BP 114 / 78; Pulse 68; Resp 15 S; Pulse Ox 100% on R/A; jw7 03/05 21:59 Body Mass Index 20.92 (68.04 kg, 180.34 cm) cm10 03/05 21:59 Pain Scale: Adult cm10 ED Course: 03/05 21:45 Patient arrived in ED. ra3 22:03 Triage completed. cm10 22:04 Arm band placed on Patient placed in waiting room. cm10 22:07 Brian Landeros PA is PHCP. cp 22:07 Brian Nix MD is Attending Physician. cp 22:10 Patient has correct armband on for positive identification. Bed in low position. Call [facility] light in reach. Provided Education on: Use of Call Light. 23:08 Justa Ang, RN is Primary Nurse. jw7 03/06 00:31 CT Head Brain wo Cont In Process Unspecified. EDMS 00:31 CT Facial Bones W/O Con In Process Unspecified. EDMS 01:00 Assist provider with eye exam of left eye. using fluorescein stain, Performed by Brian PERALTA Patient tolerated well. 01:50 Ángel Acosta MD is Referral Physician. cp 02:22 Patient did not have IV access during this emergency room visit. jw7 Administered Medications: 03/05 23:59 Drug: Ketorolac IM 30 mg IM once Route: IM; Site: left deltoid; jw7 03/06 02:22 Follow up: Response: No adverse reaction; Marked relief of symptoms jw7 01:24 Drug: Tetracaine Ophthalmic Drops 0.5 % 1 drops Ophthalmic once Route: Ophthalmic; bm8 Site: left eye; 02:22 Follow up: Response: No adverse reaction; Marked relief of symptoms jw7 Medication: 02:22 VIS not applicable for this client. jw7 Outcome: 01:52 Discharge ordered by MD. cp 02:22 Discharged to home ambulatory, jw7 02:22 Condition: stable 02:22 Discharge instructions given to patient, Instructed on discharge instructions, follow up and referral plans. medication usage, Demonstrated understanding of instructions, follow-up care, medications, Prescriptions given X 2, 02:22 Patient left the ED. jw7 Signatures: Dispatcher [employer] EDMS Brian Landeros PA PA cp Waits, Jodi, RN RN jw7 Helen Roberts RN RN Sandra Brock ra3 Kofi Jackman, RN RN bm8 Corrections: (The following items were deleted from the chart) 03/05 22:04 22:03 PSHx: LEFT ARM; cm10 cm10 23:52 23:50 BP 128 / 60; Pulse 66bpm; Resp 16bpm; Spontaneous; Pulse Ox 99% RA; jw7 jw7
[2024-03-06 02:37] VITALS: BP 114/78; TEMP 99; O2SAT 100
--- NOTE | 2024-03-07 12:16 | RAD REPORT ---
EXAM DESCRIPTION: CT - Head Brain Wo Cont - 03/06/2024 7:14 am CLINICAL HISTORY: HEADACHE TECHNIQUE: Axial computed tomography images of the head/brain without intravenous contrast. Sagitt al and coronal reformatted images were created and reviewed. This CT exam was performed using one o r more of the following dose reduction techniques: automated exposure control, adjustment of the mA and/or kV according to patient size, and/or use of iterative reconstruction technique. COMPARISON: CT Head dated 09/26/2020 FINDINGS: Brain: Unremarkable. No hemorrhage. No significant white matter disease. No edema. Ventricles: Unremarkable. No ventriculomegaly. Bones/joints: Unremarkable. No acute fracture. Soft tissues: Unremarkable. Sinuses: Unremarkable as visualized. No acute sinusitis. Mastoid air cells: Unremarkable as visualized. No mastoid effusion. * A single impression for all exams can be found at the end of this report EXAM DESCRIPTION: CT Maxillofacial Without Intravenous Contrast CLINICAL HISTORY: HEADACHE TECHNIQUE: Axial computed tomography images of the face without intravenous contrast. Sagittal and coronal reformatted images were created and reviewed. This CT exam was performed using one or more of the following dose reduction techniques: automated exposure control, adjustment of the mA and/o r kV according to patient size, and/or use of iterative reconstruction technique. COMPARISON: No relevant prior studies available. FINDINGS: Bones/joints: No acute fracture. Soft tissues: Unremarkable. Orbits: Unremarkable. Sinuses: Mild bilateral maxillary sinus mucosal thickening. No air-fluid levels. Dental: Dental caries with periapical lucency involving the bilateral maxillary second molar teeth. * A single impression for all exams can be found at the end of this report IMPRESSION: CT Head Without Intravenous Contrast: No acute intracranial or extra-axial abnormality. CT Maxillofacial Without Intravenous Contrast: Mild bilateral maxillary sinus mucosal thickening. No air-fluid levels. Electronically signed by: Kandy Rudolph MD 03/06/2024 01:02 AM CDT Due to temporary technical issues with the PACS/Fluency reporting system, reports are being signed by the in house radiologist without review as a courtesy to ensure prompt reporting. The interpreting r adiologist is fully responsible for the content of the report.
--- NOTE | 2024-03-07 12:18 | RAD REPORT ---
EXAM DESCRIPTION: CT - Facial Bones W/ Mpr - 03/06/2024 7:14 am CLINICAL HISTORY: HEADACHE TECHNIQUE: Axial computed tomography images of the head/brain without intravenous contrast. Sagitt al and coronal reformatted images were created and reviewed. This CT exam was performed using one o r more of the following dose reduction techniques: automated exposure control, adjustment of the mA and/or kV according to patient size, and/or use of iterative reconstruction technique. COMPARISON: CT Head dated 09/26/2020 FINDINGS: Brain: Unremarkable. No hemorrhage. No significant white matter disease. No edema. Ventricles: Unremarkable. No ventriculomegaly. Bones/joints: Unremarkable. No acute fracture. Soft tissues: Unremarkable. Sinuses: Unremarkable as visualized. No acute sinusitis. Mastoid air cells: Unremarkable as visualized. No mastoid effusion. * A single impression for all exams can be found at the end of this report EXAM DESCRIPTION: CT Maxillofacial Without Intravenous Contrast CLINICAL HISTORY: HEADACHE TECHNIQUE: Axial computed tomography images of the face without intravenous contrast. Sagittal and coronal reformatted images were created and reviewed. This CT exam was performed using one or more of the following dose reduction techniques: automated exposure control, adjustment of the mA and/o r kV according to patient size, and/or use of iterative reconstruction technique. COMPARISON: No relevant prior studies available. FINDINGS: Bones/joints: No acute fracture. Soft tissues: Unremarkable. Orbits: Unremarkable. Sinuses: Mild bilateral maxillary sinus mucosal thickening. No air-fluid levels. Dental: Dental caries with periapical lucency involving the bilateral maxillary second molar teeth. * A single impression for all exams can be found at the end of this report IMPRESSION: CT Head Without Intravenous Contrast: No acute intracranial or extra-axial abnormality. CT Maxillofacial Without Intravenous Contrast: Mild bilateral maxillary sinus mucosal thickening. No air-fluid levels. Electronically signed by: Kandy Rudolph MD 03/06/2024 01:02 AM CDT Due to temporary technical issues with the PACS/Fluency reporting system, reports are being signed by the in house radiologist without review as a courtesy to ensure prompt reporting. The interpreting r adiologist is fully responsible for the content of the report.
== END 2024-03-06 02:22 | disposition home or self-care (01) ==
LOC: ER 21:42
DX: R51.9 Headache, unspecified (principal); H53.8 Other visual disturbances; F17.210 Nicotine dependence, cigarettes, uncomplicated
CPT/HCPCS: 70450; 70486; 76377; 96372; 99284